=== PATIENT | female | born 1965 | race Caucasian/White ===

== ENCOUNTER 2019-12-10 09:16 | Outpatient (CLI) | payer BC, SELFPAY ==
--- NOTE | 2019-12-10 11:00 | NEURO_ITS ---
Patient Number: [id number] Impression: # Complains of paresthesia of hands. # No Carpal Tunnel Syndrome. # No ulnar neuropathy. # Normal needle/EMG exam. # Clinical correlation recommended. Nerve Conduction Studies Anti Sensory Summary Table Stim Site NR Peak (ms) P-T Amp (?V) Site1 Site2 Delta-P (ms) Dist (cm) Eduardo (m/s) Left Median Anti Sensory (2-3nd Digit) Wrist 2.8 47.4 Wrist 2-3nd Digit 2.8 14.0 50 Wrist 2.8 77.8 Wrist 2-3nd Digit 2.8 14.0 50 Right Median Anti Sensory (2-3nd Digit) Wrist 2.9 34.1 Wrist 2-3nd Digit 2.9 14.0 48 Wrist 2.8 66.1 Wrist 2-3nd Digit 2.9 14.0 48 Left Radial Anti Sensory (Base 1st Digit) Wrist 2.2 40.8 Wrist Base 1st Digit 2.2 0.0 Right Radial Anti Sensory (Base 1st Digit) Wrist 2.4 23.3 Wrist Base 1st Digit 2.4 0.0 Left Ulnar Anti Sensory (5th Digit) Wrist 2.5 65.9 Wrist 5th Digit 2.5 14.0 56 Right Ulnar Anti Sensory (5th Digit) Wrist 2.6 43.6 Wrist 5th Digit 2.6 14.0 54 Motor Summary Table Stim Site NR Onset (ms) O-P Amp (mV) Site1 Site2 Delta-0 (ms) Dist (cm) Eduardo (m/s) Left Median Motor (Abd Poll Brev) Wrist 2.4 7.8 Elbow Wrist 4.8 28.0 58 Elbow 7.2 5.8 Right Median Motor (Abd Poll Brev) Wrist 3.0 1.3 Elbow Wrist 4.5 27.0 60 Elbow 7.5 2.8 Left Ulnar Motor (Abd Dig Minimi) Wrist 2.3 9.2 A Elbow Wrist 4.7 28.0 60 A Elbow 7.0 8.0 Right Ulnar Motor (Abd Dig Minimi) Wrist 2.7 5.2 A Elbow Wrist 4.7 29.0 62 A Elbow 7.4 3.8 F Wave Studies NR F-Lat (ms) L-R F-Lat (ms) Left Median (Mrkrs) (Abd Poll Brev) 26.20 0.82 Right Median (Mrkrs) (Abd Poll Brev) 27.02 0.82 Left Ulnar (Mrkrs) (Abd Dig Min) 26.97 0.32 Right Ulnar (Mrkrs) (Abd Dig Min) 26.66 0.32 EMG Side Muscle Nerve Root Ins Act Fibs Amp Dur Recrt Comment Right 1stDorInt Ulnar C8-T1 Nml Nml Nml Nml Nml Right Ext Indicis Radial (Post Int) C7-8 Nml Nml Nml Nml Nml Right Ext Digitorum Radial (Post Int) C7-8 Nml Nml Nml Nml Nml Right BrachioRad Radial C5-6 Nml Nml Nml Nml Nml Right PronatorTeres Median C6-7 Nml Nml Nml Nml Nml Right Abd Poll Brev Median C8-T1 Nml Nml Nml Nml Nml Left 1stDorInt Ulnar C8-T1 Nml Nml Nml Nml Nml Left Ext Indicis Radial (Post Int) C7-8 Nml Nml Nml Nml Nml Left Ext Digitorum Radial (Post Int) C7-8 Nml Nml Nml Nml Nml Left BrachioRad Radial C5-6 Nml Nml Nml Nml Nml Left PronatorTeres Median C6-7 Nml Nml Nml Nml Nml Left Abd Poll Brev Median C8-T1 Nml Nml Nml Nml Nml MTDD
== END 2019-12-10 09:17 | disposition home or self-care (01) ==
PROVIDERS: PCP Internal Medicine Gastroenterology; Visit Provider Internal Medicine Gastroenterology
DX: R20.2 Paresthesia of skin (principal)
CPT/HCPCS: 95886; 95911

== ENCOUNTER 2023-09-18 16:33 | Emergency (ER) | payer OTHER, SELFPAY ==
[2023-09-18 17:00] VITALS: BP 143/114; PULSE 78; RESP 18; TEMP 36.6; O2SAT 100
--- NOTE | 2023-09-18 17:45 | ED.DENTAL ---
HPI - Dental/Oral General Chief complaint: Dental/Oral Stated complaint: teeth Time Seen by Provider: 09/18/23 17:04 History of Present Illness HPI Narrative: Patient is a 58-year-old female who presents ER with dental pain. Reports tooth 16. Ongoing for last 5 days. Worse with eating and drinking. No facial swelling. No fevers or chills or sweats. She reports she is supposed to follow-up with dentistry tomorrow. No pain control with [id number] pain medication. Related Data Allergies Allergy/AdvReac Type Severity Reaction Status Date / Time No Known Allergies Allergy Unverified 05/08/18 14:35 Review of Systems Constitutional: Constitutional: Reports no additional constitutional complaints ENT: Reports system reviewed and no additional complaints, except as documented Cardiovascular: Cardiovascular: Reports no additional cardiovascular complaints Exam Narrative: GENERAL: Well-appearing, well-nourished, and in no acute distress. HEAD: Normocephalic, atraumatic. ENT: Mucous membranes moist. Tender tooth 16. No facial swelling. CHEST: Clear to auscultation. No respiratory distress. HEART: Regular rate and rhythm. Normal peripheral pulses. EXTREMITIES: Normal range of motion. No edema. NEURO: Alert and oriented x3. PSYCH: Normal mood and affect. Course Course Emergency Course: Discussed treatment plan. Discharge with antibiotics and pain medication Vital Signs Vital signs: Vital Signs Temperature 97.8 F 09/18/23 17:00 Pulse Rate 78 09/18/23 17:00 Respiratory Rate 18 09/18/23 17:00 Blood Pressure 143/114 H 09/18/23 17:00 Pulse Oximetry 100 09/18/23 17:00 Oxygen Delivery Room Air 09/18/23 17:00 Temperature 98.0 F 09/18/23 18:05 Pulse Rate 92 09/18/23 18:05 Respiratory Rate 16 09/18/23 18:05 Blood Pressure 142/80 H 09/18/23 18:05 Pulse Oximetry 100 09/18/23 18:05 Oxygen Delivery Room Air 09/18/23 17:00 Discharge Plan Discharge Clinical Impression: Toothache Patient Disposition: Home, Self-Care Condition: Stable Instructions: Antibiotic Form, Toothache (ED) Additional Instructions: Return ER if you have worsening pain, you can not keep down food/water/medication, you have fever over 100.4? F. Prescriptions: New hydrocodone-acetaminophen 5-325 mg tablet 1 tablet PO Q6H PRN (Reason: pain) Qty: 10 0RF amoxicillin-pot clavulanate 875-125 mg tablet 1 tablet PO Q12H Qty: 20 0RF Follow-up/Referrals: Dental Referral Line [Outside] - 1 Week Misael,Asiya Kaminski MD [Primary Care Provider] - Stand Alone Forms: Work/School Release IP
[2023-09-18 18:05] VITALS: BP 142/80; PULSE 92; RESP 16; TEMP 36.7; O2SAT 100
== END 2023-09-18 18:06 | disposition home or self-care (01) ==
PROVIDERS: Emergency Provider Emergency Medicine; PCP Internal Medicine Gastroenterology
DX: K08.89 Other specified disorders of teeth and supporting structures (principal)
CPT/HCPCS: 99283

== ENCOUNTER 2024-04-26 16:38 | Emergency (ER) | payer OTHER, SELFPAY ==
[2024-04-26 16:44] VITALS: BP 132/69; PULSE 82; RESP 14; TEMP 36.4; O2SAT 100
--- NOTE | 2024-04-26 17:27 | ED_ITS ---
HPI - Dental/Oral General Chief complaint: Dental/Oral Stated complaint: pain on roof of mouth Time Seen by Provider: 04/26/24 17:14 History of Present Illness HPI Narrative: Patient is a 58-year-old female who presents ER with pain to the hard palate on the right side of her mouth. Ongoing for last week. She has a painful tooth on the left side last month so she has been chewing fairly on the right side. Unsure if she has injury there were she has infection. She does have a loose to at #3. Related Data Allergies Allergy/AdvReac Type Severity Reaction Status Date / Time No Known Allergies Allergy Unverified 05/08/18 14:35 Review of Systems Constitutional: Constitutional: Reports no additional constitutional complaints ENT: Reports system reviewed and no additional complaints, except as documented Genitourinary: Genitourinary: Reports no additional female genitourinary complaints PMFSH Past Medical History Medical History (Updated 04/26/24 @ 17:36 by Rito Mohamud MD) Hypertension Surgical History Surgical History (Updated 04/26/24 @ 17:36 by Rito Mohamud MD) H/O tubal ligation Exam Narrative: GENERAL: Well-appearing, well-nourished, and in no acute distress. HEAD: Normocephalic, atraumatic. ENT: Mucous membranes moist. small ulceration of hard palate on the right side with slight edema. No flexion abscess. Loose tooth 3. NEURO: Alert and oriented x3. PSYCH: Normal mood and affect. Course Course Emergency Course: Patient resting comfortably. Discussed diagnosis and treatment plan. Patient verbalized understanding. Vital Signs Vital signs: Vital Signs Temperature 97.6 F 04/26/24 16:44 Pulse Rate 82 04/26/24 16:44 Respiratory Rate 14 04/26/24 16:44 Blood Pressure 132/69 04/26/24 16:44 Pulse Oximetry 100 04/26/24 16:44 Oxygen Delivery Room Air 04/26/24 16:44 Temperature 97.6 F 04/26/24 16:44 Pulse Rate 82 04/26/24 16:44 Respiratory Rate 14 04/26/24 16:44 Blood Pressure 132/69 04/26/24 16:44 Pulse Oximetry 100 04/26/24 16:44 Oxygen Delivery Room Air 04/26/24 16:44 Discharge Plan Discharge Clinical Impression: Hard palate ulcer Patient Disposition: Home, Self-Care Condition: Stable Additional Instructions: return to the ER if you cannot keep down food / water, you have swelling of her face, have additional concerns. Use warm salt water rinses to help with healing of your ulcer. Patient Language: Japanese Prescriptions: No Action hydrocodone-acetaminophen 5-325 mg tablet 1 tablet PO Q6H PRN (Reason: pain) Qty: 10 0RF amoxicillin-pot clavulanate 875-125 mg tablet 1 tablet PO Q12H Qty: 20 0RF Follow-up/Referrals: Misael,Asiya Kaminski MD [Primary Care Provider] - 1 Week
== END 2024-04-26 17:49 | disposition home or self-care (01) ==
PROVIDERS: Emergency Provider Emergency Medicine; PCP Internal Medicine Gastroenterology
DX: K12.1 Other forms of stomatitis (principal); I10 Essential (primary) hypertension
CPT/HCPCS: 99281

== ENCOUNTER 2024-06-30 03:23 | Emergency (ER) | payer SELFPAY ==
[2024-06-30 03:25] VITALS: BP 122/82; PULSE 79; RESP 20; TEMP 36.7; O2SAT 95
--- OUTSIDE RECORDS SUMMARY | 2024-06-30 03:26 | XMS_ITS | Data Portability ---
Author Organization [place] - [facility], Main Office Address [address] [place] [address] Assessment No assessment recorded. Plan of Treatment Reminders Order Date Submit Date Provider Last Modified By Organization Details Last Modified Time Details Appointments None recorded. Lab None recorded. Referral None recorded. Procedures colonoscopy screening (PROC) 2022 [facility] (Pre-Screen), [address] [place], [address], 12:12:26 Surgeries None recorded. Imaging None recorded. Medication Orders Golytely 236 gram-22.74 gram-6.74 gram-5.86 gram oral solution 2022 [id number] [address], [place], [id number], 14:55:56 Patient TargetsNo targets recorded. Patient Instructions Encounter Date Encounter Id Patient Instructions Last Modified By Organization Details Last Modified Time 02/06/2023 [id number] GOLYTELY Not available 08/2022 14:44:42 PT NEEDS A SCREENING COLON . R/O POLYP . RECOMMEND A COLONOSOPY . Risks benefits and complications were explained to the pt. ( BLEEDING PERFORATION , INFECTION , ). PT VERBALIZES UNDERSTANDING AND IS WILLING TO PROCEDE . [email or web address] Not available 02/06/2023 14:44:49 Reason for Referral None Reported. Results Created Date Observation Date Name Description Value Unit Range Abnormal Flag Note LastModifiedBy Organization Detail LastModifiedTime 02/21/2002/20/2023 colon oscop y scree leslee (PROC ) No observ ation record ed. [facility] (Pre-Screen) [address] [place], [address], 02/20/2023 12:12:26 Result Notes None recorded. 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 Procedures Surgical History Date Name Laterality Status Provider Name and Address Organization Details Recorded Time Hemorrhoidectomy completed LUIS Llanos [facility] 12/25/2022 16:37:09 Tubal Ligation completed LUIS Llanos [facility] 12/25/2022 16:37:16 Imaging Results Imaging Date Name Status LastModified by Organiz ation Details LastModified Time 02/20/2023 colonoscopy screening (PROC) completed [address] [facility] (Pre-Screen) [address] [place], [address], 02/20/2023 12:12:26 Procedure Notes None recorded. Medical Equipment None Reported. Allergies No known drug allergies Medications Name Sig Start Date Stop Date Status Note LastModified by Organization Details LastModified Time ammonium lactate 12 % lotion apply to feet daily as needed 12/25 completed Not Available Not Available Not Available lisinopril 20 mg-hydrochl orothiazide 12.5 mg tablet 12/25 completed Not Available Not Available Not Available azithromyci n 250 mg tablet ZPK 04/06 completed Not Available Not Available Not Available ranitidine 300 mg tablet TK 1 T PO BID PRN 12/25 completed Not Available Not Available Not Available prednisone 20 mg tablet TK 1 T PO BID 12/25 completed Not Available Not Available Not Available sulfamethox azole 800 mg-trimetho prim 160 mg tablet TAKE 1 TABLET BY MOUTH TWICE DAILY FOR 10 DAYS active Not Available Not Available No t Available peg-electro lyte solution 420 gram oral solution MIX AND DRINK DIRECTED active Not Available Not Available No t Available benzonatate 100 mg capsule TK ONE C PO TID FOR 14 DAYS 12/25 completed Not Available Not Available Not Available lisinopril 10 mg tablet TK 1 T PO QD 12/25 completed Not Available Not Available Not Available omeprazole 20 mg capsule,del ayed release TK 1 C PO ONCE D B A MEAL 12/25 completed Not Available Not Available Not Available mupirocin 2 % topical ointment APPLY TOPICALLY TO THE AFFECTED AREA TWICE DAILY FOR 1 WEEK active Not Available Not Available No t Available Low-Ogestre l (28) 0.3 mg-30 mcg tablet TK 1 T PO QD 12/25 completed Not Available Not Available Not Available albuterol sulfate HFA 90 mcg/actuati on aerosol inhaler INL 2 PFS PO Q 4 H active Not Available Not Available No t Available ketoconazol e 2 % topical cream apply in between toes daily as needed 12/25 completed Not Available Not Available Not Available fluticasone propionate 50 mcg/actuati on nasal spray,suspe nsion SHAKE LQ AND U 2 SPRAYS NASALLY QD 12/25 completed Not Available Not Available Not Available Golytely 236 gram-22.74 gram-6.74 gram-5.86 gram oral solution DIRECTED 2022 active Not Available Not Available Not Avai lable Vitals Date Recorded Body height Body mass index (BMI) Body weight Heart rate Oxygen saturation Oxygen saturation in Arterial blood by Pulse oximetry Systolic blood pressure Diastolic blood pressure Provider Name and Address Organization Details Last Updated DateTime 3 170.18 cm 19.1 kg/m2 28711.2 7 g 102 /min 97 % 97 % 134 mm[Hg] 82 mm[Hg] LUIS Llanos [place] - [facility] 3 14:46:45 Social History Question Answer Notes LastModified by Organizat ion Details LastModified Time Tobacco Smoking Status Current Every Day Smoker Hodan Thapasley, ARANZAA null, [place] - [facility] 12/25/2022 16:36:39 What Is Your Level Of Alcohol Consumption? None Information not available 12/25/2022 How Much Tobacco Do You Smoke? 0.5 PPD Information not available 12/25/2022 Sex: Unknown Functional Status None recorded. Mental Status None recorded. Family History Relationship Description Onset Age of this Age Resolved Age Notes LastModified by Organization Details LastModified Time Mother Cerebrovascu lar accident Not available 16:35:08 Mother Hypertensive disorder Not available 2022 16:35:16 Mother Epilepsy Not available 12/25/2022 16:35:24 Father Heart disease Not available 2022 16:35:32 Father Hypertensive disorder Not available 2022 16:35:40 Father Hypercholest erolemia Not available 2022 16:35:52 Father Myocardial infarction Not available 12/25 16:36:08 Father Migraine Not available 12/25/2022 16:36:15 Medical History Condition Response CANCER: SPECIFY Y HYPERTENSION Y Gynecological HistoryNo gynecological history recorded. Obstetrics History GPAL:G 0 P 0 0 0 0 Past Encounters Encounter ID Performer Location Encounter Start Date Encounter Closed Date Diagnosis/Indication Diagnosis SNOMED-CT Code Diagnosis ICD10 Code Diagnosis Note [id number] Bell Cornell MD [facility] [address] [facility] [address] [place] [address] 02/06/2023 14:43:07 02/06/2023 15:02:27 Screening for malignant neoplasm of colon 860265103 Z12.11 Health Concerns Section Related Observation LastModified by Organization Detai ls LastModified Time None Recorded Concern Status LastModified by Organization Details LastModified Time None Recorded Advance Directives Directive None Recorded Payers Encounter Date Sequence Insurance Name Policy Number Policy Mock Covered Member ID Mock Member ID Guarantor Name 02/06/2023 1 [employer] [id number] Magda Quiles [id number] Magda Quiles Notes Date Note Type Note Provider Name and Address Organization Details Recorded Time 02/06/2023 text/html PT WAS SEEN IN THE OFFICE TODAY FOR COLON SCREENING . PT DENIES ABD PAIN /N/V/D/BLEEDING /WT LOSS. PT HAS LOST 77 LBS IN THE PAST YEAR . PT SISTER HAD 9 PRE CANCEROUS POLYPS REMOVED . Bell Cornell MD [address] [place] [address], [place], [address], [facility] [employer] 02/06/2023 14:56:09 OBGyn Episode No OBEpisode recorded.
--- OUTSIDE RECORDS SUMMARY | 2024-06-30 03:26 | XMS_ITS | Clinical Summary ---
Author Organization [facility] Address [address] [place] [address] Care Team Providers Care Gyroscopic Instrument Tester Name Role Phone Asiya Douglas MD Primary Care Provider + [phone] [facility],non-owned Affiliates and Associated Physician Practices is amultiple site organization consisting of ambulatory clinics and hospital sitesin [place], [place], [place] and [place]. This disclosure is being madepursuant to the Care Everywhere program and may not contain all information available regarding this patient. Last updated 18.[facility] Allergies No known active allergies Medications * Be aware that medications may not be up to date on this document. Alwaysverify current medications with the patient. Medication Sig Dispensed Refills Start Date End Date Status lisinopril-hydroCHLORO thiazide (PRINZIDE; ZESTORETIC) 20-12.5 MG tablet Take 1 tablet by mouth 2 times daily Active omeprazole (PRILOSEC) 20 MG capsule Take 20 mg by mouth once daily 04/13/2019 Active Naproxen Sodium (ALEVE PO) Take 600 mg by mouth 2 times daily Active fluticasone propionate (FLONASE) 50 MCG/ACT nasal spray [place] 2 sprays into each nostril every 6 hours as needed Active Immunizations Name Administration Dates Next Due HEP A/HEP B 12/21/2008 Family History Medical History Relation Name Comments CAD (Coronary Artery Disease) Father Cancer - Other Maternal Grandfather Cancer - Other Maternal Grandmother Arthritis - Rheumatoid Mother CVA Mother Seizures Mother Diabetes - Type 2 Other Cancer - Breast Sister 1 Cancer - Ovarian Sister 2 Relation Name Status Comments Father Maternal Grandfather Maternal Grandmother Mother Other Sister 1 Sister 2 Social History Tobacco Use Types Packs/Day Years Used Date Smoking Tobacco: Every Day Cigarettes Smokeless Tobacco: Never Alcohol Use Standard Drinks/Week Comments Not Currently 0 (1 standard drink = 0.6 oz pur e alcohol) Sex and Gender Information Value Date Recorded Sex Assigned at Not on file Gender Identity Not on file Sexual Orientation Not on file Last Filed Vital Signs Vital Sign Reading Time Taken Comments Blood Pressure 116/77 08/25/2020 10:46 AM CDT Pulse 50 08/25/2020 10:46 AM CDT Temperature 36.3 C (97.4 F) 08/25/2020 10:46 AM CDT Respiratory Rate 18 08/25/2020 10:46 AM CDT Oxygen Saturation 98% 08/25/2020 10:46 AM CDT Inhaled Oxygen Concentration - - Weight 76.9 kg (169 lb 9.6 oz) 08/25/2020 10:46 AM CDT Height 167.6 cm (5' 6 ) 08/25/2020 10:46 AM CDT Body Mass Index 27.37 08/25/2020 10:46 AM CDT Plan of Treatment Health Maintenance Due Date Last Done Comments COLOGUARD (AGES 45-75) - COL ON CA SCREENING 1966 COLON MONITORING 1966 COLONOSCOPY - COLON CA SCREENING 1966 CT COLONOGRAPHY - COLON CA SCREENING 1966 Colorectal Cancer Screening 1966 FIT - COLON CA SCREENING 1966 FLEX SIG - COLON CA SCREENING 1966 LIPID TESTING 1966 MAMMOGRAM 1966 PAP SMEAR 1966 HIV SCREENING 1981 HEPATITIS C SCREENING 09/09/1984 DTAP/TDAP/TD VACCINES (1 - Tdap) 1985 PNEUMOCOCCAL VACCINE (1 of 2 - PCV) 1985 HEPATITIS B VACCINE (2 of 3 - Hep B Twinrix 3-dose series) 01/18/2009 12/21/2008 PNEUMOCOCCAL VACCINE 50+ (1 of 1 - PCV) 2016 ZOSTER VACCINE (1 of 2) 2016 SCREENING FOR DIABETES 08/25/2020 COVID-19 VACCINE (1 - 2023-2 5 season) 2024 INFLUENZA VACCINE (#1) 2024 DEPRESSION SCREENING 05/06/2024 HIB VACCINE Aged Out No longer eligi ble based on patient's age to complete this topic HPV VACCINE Aged Out No longer eligi ble based on patient's age to complete this topic MENINGOCOCCAL (Group B) VACCINE Aged Out No longer eligible based on patient's age to complete this topic MENINGOCOCCAL VACCINE Aged Out No debby saroj eligible based on patient's age to complete this topic Care Teams Gyroscopic Instrument Tester Relationship Specialty [place] [address] [place] [id number] PCP - General 05/04/19
--- OUTSIDE RECORDS SUMMARY | 2024-06-30 03:26 | XMS_ITS | Encounter Summary ---
Author Organization [facility] Address [address] [place] [address] Care Team Providers Care Expansion Envelope Maker Hand Name Role Phone Unavailable Primary Care Provider Unavailabl e Encounter Details Date Type Department Care Team (Late st Contact Info) Description 10/11/2018 Abstract SFL CONVERSION [address] [place] [address] , Generic Conversion, Social History Tobacco Use Types Packs/Day Years Used Date Smoking Tobacco: Never Assessed Comments Unknown Sex and Gender Information Value Date Recorded Sex Assigned at Not on file Legal Sex Female 5:48 PM [employer] Gender Identity Not on file Sexual Orientation Not on file documented as of this encounter Plan of Treatment Not on file documented as of this encounter Visit Diagnoses Not on filedocumented in this encounter
--- OUTSIDE RECORDS SUMMARY | 2024-06-30 03:26 | XMS_ITS | Data Portability ---
Author Organization [facility] ROSSJose Luis 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 Race self-identified as White.Her highest level of education is high school diploma/GED. Employment Status: Fulltime Relationship status: has boyfriend PHQ9: 4, neg GAD7: 4, neg ACES: 0 Resilience: 45, moderate SDOH: not completed, address at next appointment Trauma Screen: Partnering Providers: Asiya Douglas Date: Follow-up in 1-2 months [email or web address] Not available 03/03/2024 16:41:50 Plan of Treatment Reminders Order Date Submit Date Provider Last Modified By Organization Details Last Modified Time Details Appointments None recorded . Lab urinalys is, dipstick 2023 024 [email or web address] In-Office Order, Internal Use Only DO Not Attach Compendium DO Not Attach Compendium, Do Not Delete/merge, [id number] 11:04:07 HbA1c (hemoglo bin A1c), blood 2023 024 SIMIN [facility], [address] [address], [place], [address], 09:14:59 CMP, serum or plasma 10/2023 [facility], [address], [address], [place], [address], 09:14:56 CBC w/ auto diff 2023 [facility], [address], [address], [place], [address], 09:15:01 TSH, ultra-se nsitive, serum 2023 [facility], [address], [address], [place], [address], 09:14:57 HIV 1 + 2, meaningf ul use set 2023 [facility], [address] [place] [address] [address], [address], [place], [address], 09:15:07 RPR (rapid plasma reagin), serum 2023 [facility], [address] [place] [address] [address], [address], [place], [address], 09:15:05 HBsAg (hepatit is B surface Ag), EIA, serum 2023 [facility], [address] [place] [address] [address], [address], [place], [address], 09:15:03 Hepatiti s C IgG Ab, qual, serum 2023 [facility], [address] [place] [address] [address], [address], [place], [address], 09:14:54 vaginal pathogen s panel, MAHAMED+prob e, vaginal fluid 2023 [email or web address] [facility], [address], [address], [place], [address], 4 11:28:06 pap, IG + reflex HPV 2023 024 [facility], [address], [address], [place], [address], 4 03:09:24 culture, wound 2022 023 [facility], [address], [address], [place], [address], 3 06:20:47 TSH, ultra-se nsitive, serum 2022 023 [facility], [address], [address], [place], [address], 3 06:17:37 CBC 2022 023 [facility], [address], [address], [place], [address], 3 08:33:41 vitamin B12 + folate, serum or blood 2022 023 [facility], [address], [address], [place], [address], 3 06:17:37 thiamine , QN, blood 2022 023 [facility], [address], [address], [place], [address], 3 19:08:37 CMP, serum or plasma 2022 023 [facility], [address], [address], [place], [address], 3 08:33:[address] referral 2022 024 crow Cornell MD, 2043 [facility], [address], [place], [address], 4 11:44:01 Procedures None recorded . Surgeries None recorded . Imaging MAMMO, screenin g, digital, bilatera l 2023 024 [facility] ([facility]), [address] [place], [address], 5 04:14:53 MAMMO, diagnost ic, unilater al - lump on right breast at 9:00 position near nipple 2023 024 [facility] ([facility]), [address] [place], [address], 4 15:23:50 US, breast, unilater al - lump on right breast at 9:00 position near nipple 2023 024 [facility] ([facility]), [address] [place], [address], 5 04:14:53 LDCT, chest, for lung cancer screenin g 2022 023 [facility] ([facility]), [address] [place], [address], 3 08:34:48 US, duplex, carotid artery - Left carotid bruit 2022 023 [facility] ([facility]), [address] [place], [address], 3 15:40:07 MAMMO, screenin g, bilatera l 2022 023 [facility] ([facility]), [address] [place], [address], 3 12:49:39 Medication Orders bupropio n HCl SR 150 mg tablet,1 2 hr sustaine d-releas e 2023 [id number], [address], [place], [id number], 4 11:18:25 Replens vaginal gel 2023 [facility] #[id number], [address], [place], [id number], 11:14:48 Personal Lubrican t vaginal solution 2023 [facility] #[id number], [address], [place], [id number], 11:14:40 mupiroci n 2 % topical ointment 2022 024 [facility] #[id number], [address], [place], [id number], 4 09:53:40 Bactrim DS 800 mg-160 mg tablet 2022 023 [id number], [address], [place], [id number], 09:53:31 albutero l sulfate HFA 90 mcg/actu ation aerosol inhaler 2022 023 [facility][id number], [address], [place], [id number], 09:53:16 Patient TargetsNo targets recorded. Patient Instructions Encounter Date Encounter Id Patient Instructions Last Modified By Organization Details Last Modified Time 12/25/2022 [id number] deciding about using medicines to quit smoking [email or web address] Not available 12/25/2022 11:17:09 Quitting Tobacco : Care Instructions Not available 12/25/2022 11:17:09 dizziness: care instructions [email or web address] Not available 12/25/2022 11:17:10 abnormal weight loss: care instructions [email or web address] Not available 12/25/2022 11:17:09 learning about breast cancer screening [email or web address] Not available 12/25/2022 11:17:10 shortness of breath: care instructions [email or web address] Not available 12/25/2022 11:17:09 04/01/2023 [id number] abnormal weight loss: care instructions [email or web address] Not available 04/01/2023 12:29:02 deciding about using medicines to quit smoking [email or web address] Not available 04/01/2023 12:29:02 Quitting Tobacco : Care Instructions [email or web address] Not available 04/01/2023 12:29:02 palpitations: care instructions [email or web address] Not available 04/01/2023 12:29:02 02/20/2024 [id number] On the date of this encounter, I saw and examined the patient, personally verifying the dominguez and critical findings in the resident s note. I reviewed and agree with the resident/fellow s findings and plan. ~MD [email or web address] Not available 03/01/2024 19:51:50 Reason for Referral Client Relationship Consultant Referral for Family history of polyp of colon First degree family history colon polyps Referring Physician: Asiya Douglas, Internal Medicine, Encounter Date: 12/25/2022 Results Created Date Observation Date Name Description Value Unit Range Abnormal Flag Note LastModifiedBy Organization Detail LastModifiedTime 12/26/1912/26/2022 TSH RFX ON ABNOR MAL TO FREE T4 TSH 0.297 uIU/m L 0.450- 4.500 below low normal Not Available [facility] ([facility]) [address] [place], [address], 12/26/2022 06:17:37 12/26/19 23 12/26/2022 VITAM IN B12 AND FOLAT E vitamin B12 302 pg/mL 232-12 45 Not Available [facility] ([facility]) [address] [facility], [place], [address], 12/26/2022 06:17:37 12/26/1912/26/2022 VITAM IN B12 AND FOLAT E folate (folic acid), serum 15.3 NG/mL >3.0 A serum folat e corry ntrat ion of less than 3.1 ng/mL is consi dered to repre sent clini lizy defic iency . Not Available [facility] ([facility]) [address] [place], [address], 12/26/2022 06:17:37 12/26/1912/26/2022 COMP. METAB OLIC PANEL (14) glucose 77 mg/dL 70-99 Not Available [facility] ([facility]) [address] [place], [address], 12/26/2022 08:33:40 12/26/1912/26/2022 COMP. METAB OLIC PANEL (14) BUN 23 mg/dL 6-24 Not Available [facility] ([facility]) [address] [place], [address], 12/26/2022 08:33:40 12/26/1912/26/2022 COMP. METAB OLIC PANEL (14) creatinine 0.69 mg/dL 0.57-1 .00 Not Available [facility] ([facility]) [address] [place], [address], 12/26/2022 08:33:40 12/26/19 23 12/26/2022 COMP. METAB OLIC PANEL (14) eGFR 102 mL/mi n/1.7 3 >59 Not Available [facility] ([facility]) [address] [place], [address], 12/26/2022 08:33:40 12/26/1912/26/2022 COMP. METAB OLIC PANEL (14) BUN/creatini ne ratio 33 9-23 above high normal Not Available [facility] ([facility]) [address] [place], [address], 12/26/2022 08:33:40 12/26/19 23 12/26/2022 COMP. METAB OLIC PANEL (14) sodium 141 mmol/ L 134-14 4 Not Available [facility] ([facility]) [address] [facility] [place], [address], 12/26/2022 08:33:40 12/26/19 23 12/26/2022 COMP. METAB OLIC PANEL (14) potassium - mmol/ L Test not perfo rmed. Speci men is hemol yzed. Unabl e to obtai n valid resul ts. Not Available [facility] ([facility]) [address] [place], [address], 12/26/2022 08:33:40 12/26/19 23 12/26/2022 COMP. METAB OLIC PANEL (14) chloride 105 mmol/ L 96-106 Not Available [facility] ([facility]) [address] [facility], [place], [address], 12/26/2022 08:33:40 12/26/19 23 12/26/2022 COMP. METAB OLIC PANEL (14) carbon dioxide, total 18 mmol/ L 20-29 below low normal Not Available [facility] ([facility]) [address] [place], [address], 12/26/2022 08:33:40 12/26/19 23 12/26/2022 COMP. METAB OLIC PANEL (14) calcium 9.9 mg/dL 8.7-10 .2 Not Available [facility] ([facility]) [address] [place], [address], 12/26/2022 08:33:40 12/26/19 23 12/26/2022 COMP. METAB OLIC PANEL (14) protein, total 7.2 g/dL 6.0-8. 5 Not Available [facility] ([facility]) [address] [place], [address], 12/26/2022 08:33:40 12/26/19 23 12/26/2022 COMP. METAB OLIC PANEL (14) albumin 4.6 g/dL 3.8-4. 9 Not Available [facility] ([facility]) [address], [place], [address], 12/26/2022 08:33:40 12/26/19 23 12/26/2022 COMP. METAB OLIC PANEL (14) globulin, total 2.6 g/dL 1.5-4. 5 Not Available [facility] ([facility]) [address], [place], [address], 12/26/2022 08:33:40 12/26/19 23 12/26/2022 COMP. METAB OLIC PANEL (14) A/G ratio 1.8 1.2-2. 2 Not Available [facility] ([facility]) [address], [place], [address], 12/26/2022 08:33:40 12/26/19 23 12/26/2022 COMP. METAB OLIC PANEL (14) bilirubin, total 0.5 mg/dL 0.0-1. 2 Not Available [facility] ([facility]) [address] [facility], [place], [address], 12/26/2022 08:33:40 12/26/19 23 12/26/2022 COMP. METAB OLIC PANEL (14) alkaline phosphatase 90 IU/L 44-121 Not Available [facility] ([facility]) [address], [place], [address], 12/26/2022 08:33:40 12/26/19 23 12/26/2022 COMP. METAB OLIC PANEL (14) AST (SGOT) 32 IU/L 0-40 Not Available [facility] ([facility]) [address] [facility], [place], [address], 12/26/2022 08:33:40 12/26/1912/26/2022 COMP. METAB OLIC PANEL (14) ALT (SGPT) 15 IU/L 0-32 Not Available [facility] ([facility]) [address] [facility], [place], [address], 12/26/2022 08:33:40 12/26/1912/26/2022 CBC, PLATE LET, NO DIFFE RENTI AL WBC 6.0 x10e3 /uL 3.4-10 .8 Not Available [facility] ([facility]) [address] [facility], [place], [address], 12/26/2022 08:33:41 12/26/1912/26/2022 CBC, PLATE LET, NO DIFFE RENTI AL RBC 4.44 x10e6 /uL 3.77-5 .28 Not Available [facility] ([facility]) [address] [facility], [place], [address], 12/26/2022 08:33:41 12/26/1912/26/2022 CBC, PLATE LET, NO DIFFE RENTI AL hemoglobin 14.4 g/dL 11.1-1 5.9 Not Available [facility] ([facility]) [address] [facility], [place], [address], 12/26/2022 08:33:41 12/26/1912/26/2022 CBC, PLATE LET, NO DIFFE RENTI AL hematocrit 42.6 % 34.0-4 6.6 Not Available [facility] ([facility]) [address] [facility], [place], [address], 12/26/2022 08:33:41 12/26/1912/26/2022 CBC, PLATE LET, NO DIFFE RENTI AL MCV 96 fL 79-97 Not Available [facility] ([facility]) [address] [facility], [place], [address], 12/26/2022 08:33:41 12/26/1912/26/2022 CBC, PLATE LET, NO DIFFE RENTI AL MCH 32.4 pg 26.6-3 3.0 Not Available [facility] ([facility]) [address] [facility], [place], [address], 12/26/2022 08:33:41 12/26/1912/26/2022 CBC, PLATE LET, NO DIFFE RENTI AL MCHC 33.8 g/dL 31.5-3 5.7 Not Available [facility] ([facility]) [address] [facility], [place], [address], 12/26/2022 08:33:41 12/26/1912/26/2022 CBC, PLATE LET, NO DIFFE RENTI AL RDW 11.9 % 11.7-1 5.4 Not Available [facility] ([facility]) [address] [facility], [place], [address], 12/26/2022 08:33:41 12/26/1912/26/2022 CBC, PLATE LET, NO DIFFE RENTI AL platelets 250 x10e3 /uL 150-45 0 Not Available [facility] ([facility]) [address] [place], [address], 12/26/2022 08:33:41 12/26/1912/28/2022 VITAM IN B1 (THIA MINE) , BLOOD vit. B1, whole blood 121.9 nmol/ L 66.5-2 00.0 Not Available [facility] ([facility]) [address] [place], [address], 12/28/2022 19:08:37 12/26/1912/26/2022 T4F T4,free (direct) 1.30 NG/dL 0.82-1 .77 Not Available [facility] ([facility]) [address] [place], [address], 12/26/2022 06:17:38 02/20/2002/26/2023 ANAER OBIC AND AEROB IC CULTU RE aerobic culture Final report Not Available [facility] ([facility]) [address] [facility], [place], [address], 03/01/2023 06:20:47 02/20/2002/26/2023 ANAER OBIC AND AEROB IC CULTU RE result 1 Mixed skin jb Not Available [facility] ([facility]) [address] [facility], [place], [address], 03/01/2023 06:20:47 02/20/2002/28/2023 ANAER OBIC AND AEROB IC CULTU RE anaerobic culture Final report Not Available [facility] ([facility]) [address] [facility], [place], [address], 03/01/2023 06:20:47 02/20/2002/28/2023 ANAER OBIC AND AEROB IC CULTU RE result 1 Commen t No anaer obic growt h in 72 hours . Not Available [facility] ([facility]) [address] [facility], [place], [address], 03/01/2023 06:20:47 02/20/2002/21/2024 INTER PRETA TION: interpretati on: Commen t Not infec coty with HCV unles s early or acute infec tion is suspe cted (whic h may be delay ed in an immun ocomp romis ed indiv idual ), or other evide nce exist s to indic ate HCV infec tion. Not Available [facility] ([facility]) [address] [facility], [place], [address], 02/21/2024 09:14:52 02/20/2002/21/2024 HCV ANTIB CECELIA RFX TO QUANT PCR HCV Ab NON REACTI VE nonrea ctive Not Available [facility] ([facility]) [address] [facility], [place], [address], 02/21/2024 09:14:53 02/20/20 24 02/21/2024 COMP. METAB OLIC PANEL (14) glucose 84 mg/dL 70-99 Not Available [facility] ([facility]) [address] [place], [address], 02/21/2024 09:14:55 02/20/20 24 02/21/2024 COMP. METAB OLIC PANEL (14) BUN 22 mg/dL 6-24 Not Available [facility] ([facility]) [address] [place], [address], 02/21/2024 09:14:55 02/20/2002/21/2024 COMP. METAB OLIC PANEL (14) creatinine 0.83 mg/dL 0.57-1 .00 Not Available [facility] ([facility]) [address] [place], [address], 02/21/2024 09:14:55 02/20/2002/21/2024 COMP. METAB OLIC PANEL (14) eGFR 82 mL/mi n/1.7 3 >59 Not Available [facility] ([facility]) [address] [place], [address], 02/21/2024 09:14:55 02/20/20 24 02/21/2024 COMP. METAB OLIC PANEL (14) BUN/creatini ne ratio 27 9-23 above high normal Not Available [facility] ([facility]) [address] [place], [address], 02/21/2024 09:14:55 02/20/20 24 02/21/2024 COMP. METAB OLIC PANEL (14) sodium 144 mmol/ L 134-14 4 Not Available [facility] ([facility]) [address] [place], [address], 02/21/2024 09:14:55 02/20/20 24 02/21/2024 COMP. METAB OLIC PANEL (14) potassium 5.0 mmol/ L 3.5-5. 2 Not Available [facility] ([facility]) [address] [place], [address], 02/21/2024 09:14:55 02/20/20 24 02/21/2024 COMP. METAB OLIC PANEL (14) chloride 107 mmol/ L 96-106 above high normal Not Available [facility] ([facility]) [address] [place], [address], 02/21/2024 09:14:55 02/20/20 24 02/21/2024 COMP. METAB OLIC PANEL (14) carbon dioxide, total 24 mmol/ L 20-29 Not Available [facility] ([facility]) [address] [place], [address], 02/21/2024 09:14:55 02/20/20 24 02/21/2024 COMP. METAB OLIC PANEL (14) calcium 9.7 mg/dL 8.7-10 .2 Not Available [facility] ([facility]) [address] [place], [address], 02/21/2024 09:14:55 02/20/2002/21/2024 COMP. METAB OLIC PANEL (14) protein, total 6.9 g/dL 6.0-8. 5 Not Available [facility] ([facility]) [address] [facility] [place], [address], 02/21/2024 09:14:55 02/20/20 24 02/21/2024 COMP. METAB OLIC PANEL (14) albumin 4.3 g/dL 3.8-4. 9 Not Available [facility] ([facility]) [address] [facility] [place], [address], 02/21/2024 09:14:55 02/20/20 24 02/21/2024 COMP. METAB OLIC PANEL (14) globulin, total 2.6 g/dL 1.5-4. 5 Not Available [facility] ([facility]) [address] [place], [address], 02/21/2024 09:14:55 02/20/2002/21/2024 COMP. METAB OLIC PANEL (14) bilirubin, total 0.4 mg/dL 0.0-1. 2 Not Available [facility] ([facility]) [address] [place], [address], 02/21/2024 09:14:55 02/20/2002/21/2024 COMP. METAB OLIC PANEL (14) alkaline phosphatase 110 IU/L 44-121 Not Available [facility] ([facility]) [address] [place], [address], 02/21/2024 09:14:55 02/20/2002/21/2024 COMP. METAB OLIC PANEL (14) AST (SGOT) 19 IU/L 0-40 Not Available [facility] ([facility]) [address] [place], [address], 02/21/2024 09:14:55 02/20/2002/21/2024 COMP. METAB OLIC PANEL (14) ALT (SGPT) 16 IU/L 0-32 Not Available [facility] ([facility]) [address] [place], [address], 02/21/2024 09:14:55 02/20/2002/21/2024 TSH RFX ON ABNOR MAL TO FREE T4 TSH 0.280 uIU/m L 0.450- 4.500 below low normal Not Available [facility] ([facility]) [address] [place], [address], 02/21/2024 09:14:57 02/20/2002/21/2024 HEMOG LOBIN A1C hemoglobin A1C 5.5 % 4.8-5. 6 Predi abete s: 5.7 - 6.4 Diabe holly: >6.4 Glyce mirza contr ol for adult s with diabe holly: <7.0 Not Available [facility] ([facility]) [address] [place], [address], 02/21/2024 09:14:59 02/20/2002/21/2024 T4F T4,free (direct) 1.31 NG/dL 0.82-1 .77 Not Available [facility] ([facility]) [address] [facility], [place], [address], 02/21/2024 09:15:00 02/20/2002/21/2024 CBC WITH DIFFE RENTI AL/PL ATELE T WBC 5.0 x10e3 /uL 3.4-10 .8 Not Available [facility] ([facility]) [address] [facility], [place], [address], 02/21/2024 09:15:01 02/20/2002/21/2024 CBC WITH DIFFE RENTI AL/PL ATELE T RBC 4.59 x10e6 /uL 3.77-5 .28 Not Available [facility] ([facility]) [address] [place], [address], 02/21/2024 09:15:01 02/20/2002/21/2024 CBC WITH DIFFE RENTI AL/PL ATELE T hemoglobin 14.9 g/dL 11.1-1 5.9 Not Available [facility] ([facility]) [address] [place], [address], 02/21/2024 09:15:01 02/20/2002/21/2024 CBC WITH DIFFE RENTI AL/PL ATELE T hematocrit 44.8 % 34.0-4 6.6 Not Available [facility] ([facility]) [address] [place], [address], 02/21/2024 09:15:01 02/20/2002/21/2024 CBC WITH DIFFE RENTI AL/PL ATELE T MCV 98 fL 79-97 above high normal Not Available [facility] ([facility]) [address] [facility], [place], [address], 02/21/2024 09:15:01 02/20/2002/21/2024 CBC WITH DIFFE RENTI AL/PL ATELE T MCH 32.5 pg 26.6-3 3.0 Not Available [facility] ([facility]) [address] [facility], [place], [address], 02/21/2024 09:15:01 02/20/2002/21/2024 CBC WITH DIFFE RENTI AL/PL ATELE T MCHC 33.3 g/dL 31.5-3 5.7 Not Available [facility] ([facility]) [address] [facility], [place], [address], 02/21/2024 09:15:01 02/20/2002/21/2024 CBC WITH DIFFE RENTI AL/PL ATELE T RDW 11.8 % 11.7-1 5.4 Not Available [facility] ([facility]) [address] [facility], [place], [address], 02/21/2024 09:15:01 02/20/20 24 02/21/2024 CBC WITH DIFFE RENTI AL/PL ATELE T platelets 298 x10e3 /uL 150-45 0 Not Available [facility] ([facility]) [address] [facility], [place], [address], 02/21/2024 09:15:01 02/20/2002/21/2024 CBC WITH DIFFE RENTI AL/PL ATELE T neutrophils 53 % notest ab. Not Available [facility] ([facility]) [address] [facility], [place], [address], 02/21/2024 09:15:01 02/20/20 24 02/21/2024 CBC WITH DIFFE RENTI AL/PL ATELE T lymphs 33 % notest ab. Not Available [facility] ([facility]) [address] [facility], [place], [address], 02/21/2024 09:15:01 02/20/2002/21/2024 CBC WITH DIFFE RENTI AL/PL ATELE T monocytes 10 % notest ab. Not Available [facility] ([facility]) [address] [facility], [place], [address], 02/21/2024 09:15:01 02/20/2002/21/2024 CBC WITH DIFFE RENTI AL/PL ATELE T eos 3 % notest ab. Not Available [facility] ([facility]) [address] [facility], [place], [address], 02/21/2024 09:15:01 02/20/20 24 02/21/2024 CBC WITH DIFFE RENTI AL/PL ATELE T basos 1 % notest ab. Not Available [facility] ([facility]) [address] [facility], [place], [address], 02/21/2024 09:15:01 02/20/2002/21/2024 CBC WITH DIFFE RENTI AL/PL ATELE T neutrophils (absolute) 2.6 x10e3 /uL 1.4-7. 0 Not Available [facility] ([facility]) [address] [facility], [place], [address], 02/21/2024 09:15:01 02/20/20 24 02/21/2024 CBC WITH DIFFE RENTI AL/PL ATELE T lymphs (absolute) 1.7 x10e3 /uL 0.7-3. 1 Not Available [facility] ([facility]) [address] [facility], [place], [address], 02/21/2024 09:15:01 02/20/20 24 02/21/2024 CBC WITH DIFFE RENTI AL/PL ATELE T monocytes(ab solute) 0.5 x10e3 /uL 0.1-0. 9 Not Available [facility] ([facility]) [address] [facility], [place], [address], 02/21/2024 09:15:01 02/20/2002/21/2024 CBC WITH DIFFE RENTI AL/PL ATELE T eos (absolute) 0.2 x10e3 /uL 0.0-0. 4 Not Available [facility] ([facility]) [address] [facility], [place], [address], 02/21/2024 09:15:01 02/20/20 24 02/21/2024 CBC WITH DIFFE RENTI AL/PL ATELE T baso (absolute) 0.1 x10e3 /uL 0.0-0. 2 Not Available [facility] ([facility]) [address] [facility], [place], [address], 02/21/2024 09:15:01 02/20/20 24 02/21/2024 CBC WITH DIFFE RENTI AL/PL ATELE T immature granulocytes 0 % notest ab. Not Available [facility] ([facility]) [address] [facility], [place], [address], 02/21/2024 09:15:01 02/20/20 24 02/21/2024 CBC WITH DIFFE RENTI AL/PL ATELE T immature grans (abs) 0.0 x10e3 /uL 0.0-0. 1 Not Available [facility] ([facility]) [address] [facility], [place], [address], 02/21/2024 09:15:01 02/20/20 24 02/21/2024 HBSAG SCREE N HBsAg screen NEGATI VE negati ve Not Available [facility] ([facility]) [address] [facility], [place], [address], 02/21/2024 09:15:03 02/20/20 24 02/21/2024 RPR, RFX QN RPR/C ONFIR M TP RPR NON REACTI VE nonrea ctive Not Available [facility] ([facility]) [address] [facility], [place], [address], 02/21/2024 09:15:05 02/20/2002/21/2024 HIV AB/P2 4 AG WITH REFLE X HIV Ab/P24 Ag screen NON REACTI VE nonrea ctive HIV-1 /HIV- 2 antib odies and HIV-1 p24 antig en were NOT detec coty. There is no labor atory evide nce of HIV infec tion. HIV Negat robert Not Available [facility] ([facility]) [address] [facility], [place], [address], 02/21/2024 09:15:07 02/20/2002/21/2024 NUSWA B VAGIN ITIS PLUS (VG+) atopobium vaginae HIGH - 2 score abnormal Not Available [facility] ([facility]) [address] [facility], [place], [address], 02/23/2024 03:06:39 02/20/20 24 02/21/2024 NUSWA B VAGIN ITIS PLUS (VG+) bvab 2 HIGH - 2 score abnormal Not Available [facility] ([facility]) [address] [facility], [place], [address], 02/23/2024 03:06:39 02/20/2002/21/2024 NUSWA B VAGIN ITIS PLUS (VG+) megasphaera 1 LOW - 0 score Calcu late total score by ely g the 3 indiv idual bacte rial vagin osis (BV) marke r score s toget her. Total score is inter prete d as follo ws: Total score 0-1: Indic ates the absen ce of BV. Total score 2: Indet ermin ate for BV. Addit ional clini lizy data shoul d be evalu ated to estab yrn a diagn osis. Total score 3-6: Indic ates the prese nce of BV. Not Available [facility] ([facility]) [address] [place], [address], 02/23/2024 03:06:39 02/20/2002/21/2024 NUA B VAGIN ITIS PLUS (VG+) florentin albicans, MAHAMED NEGATI VE negati ve Not Available [facility] ([facility]) [address] [facility], [place], [address], 02/23/2024 03:06:39 02/20/2002/21/2024 NUSWA B VAGIN ITIS PLUS (VG+) florentin glabrata, MAHAMED NEGATI VE negati ve Not Available [facility] ([facility]) [address] [facility], [place], [address], 02/23/2024 03:06:39 02/20/2002/22/2024 NUA B VAGIN ITIS PLUS (VG+) trich vag by MAHAMED NEGATI VE negati ve Not Available [facility] ([facility]) [address] [place], [address], 02/23/2024 03:06:39 02/20/2002/22/2024 NUA B VAGIN ITIS PLUS (VG+) chlamydia trachomatis, MAHAMED NEGATI VE negati ve Not Available [facility] ([facility]) [address] [place], [address], 02/23/2024 03:06:39 02/20/2002/22/2024 NUA B VAGIN ITIS PLUS (VG+) neisseria gonorrhoeae, MAHAMED NEGATI VE negati ve Not Available [facility] ([facility]) [address] [place], [address], 02/23/2024 03:06:39 02/20/2002/20/2024 IGP,A PTIMA HPV,A GE GDLN age gdln acog testing 30-65 Not Available [facility] ([facility]) [address] [place], [address], 02/27/2024 03:09:24 02/20/20 24 02/21/2024 IGP, APTIM A HPV, RFX 16/18 ,45 HPV aptima Positi ve negati ve abnormal This nucle ic acid ampli ficat ion test detec ts fourt een high- risk HPV types (16,1 8,31, 33,35 ,39,4 5,51, 52,56 ,58,5 9,66, 68) witho ut diffe renti ation . Not Available [facility] ([facility]) [address] [facility], [place], [address], 02/27/2024 03:09:26 02/20/2002/26/2024 IGP, APTIM A HPV, RFX 16/18 ,45 diagnosis: Alex lopes NEGAT ROBERT FOR INTRA EPITH ELIAL CARMELO N OR YASMIN RAO . Not Available [facility] ([facility]) [address] [facility], [place], [address], 02/27/2024 03:09:26 02/20/2002/26/2024 IGP, APTIM A HPV, RFX 16/18 ,45 specimen adequacy: Alex lopes Satis facteamon guerrier for evalu ation . Endoc ervic al and/o r squam ous metap lasti c cells (endo cervi lizy compo nent) are prese nt. Not Available [facility] ([facility]) [address] [facility], [place], [address], 02/27/2024 03:09:26 02/20/2002/26/2024 IGP, APTIM A HPV, RFX 16/18 ,45 clinician provided ICD10: Alex lopes Z12.4 Not Available [facility] ([facility]) [address] [facility], [place], [address], 02/27/2024 03:09:26 02/20/2002/26/2024 IGP, APTIM A HPV, RFX 16/18 ,45 performed by: Alex stone, [employer]ot echn[employer] logis t (ASCP ) Not Available [facility] ([facility]) [address] [facility], [place], [address], 02/27/2024 03:09:26 02/20/2002/26/2024 IGP, APTIM A HPV, RFX 16/18 ,45 . . Not Available [facility] ([facility]) [address] [facility], [place], [address], 02/27/2024 03:09:26 02/20/2002/26/2024 IGP, APTIM A HPV, RFX 16/18 ,45 note: Commen t The Pap smear is a scree leslee test rosalio bartholomew to aid in the detec tion of nicole ligna nt and malig nant condi tions of the uteri ne cervi x. It is not a diagn ostic proce dure and shoul d not be used as the sole means of detec ting cervi lizy cance r. Both false -posi tive and false -nega tive repor ts do occur . Not Available [facility] ([facility]) [address] [facility], [place], [address], 02/27/2024 03:09:26 02/20/2002/26/2024 IGP, APTIM A HPV, RFX 16/18 ,45 test methodology: Alex t This liqui d based ThinP rep(R ) pap test was scree puma with the use of an image guide starr guzman. Not Available [facility] ([facility]) [address] [facility], [place], [address], 02/27/2024 03:09:26 02/20/2002/26/2024 IGP, APTIM A HPV, RFX 16/18 ,45 HPV genotype reflex Commen t Crite rabia met, see HPV Genot ype resul ts. Not Available [facility] ([facility]) [address] [facility], [place], [address], 02/27/2024 03:09:26 02/20/20 24 02/27/2024 HPV GENOT YPES 16/18 ,45 HPV genotype 16 Negati ve negati ve Not Available [facility] ([facility]) [address] [facility], [place], [address], 02/27/2024 03:09:26 02/20/20 24 02/27/2024 HPV GENOT YPES 16/18 ,45 HPV genotype 18,45 Negati ve negati ve Not Available [facility] ([facility]) [address], [place], [address], 02/27/2024 03:09:26 02/20/2002/20/2024 urina lysis , dipst ick Leukocytes Trace Not Available In-Offi ce Order Internal Use Only DO Not Attach Compendium DO Not Attach Compendium, Do Not Delete/merge, [id number] 02/20/2024 10:34:25 02/20/2002/20/2024 urina lysis , dipst ick Nitrite negati ve Not Available In-Office Order Internal Use Only DO Not Attach Compendium DO Not Attach Compendium, Do Not Delete/merge, [id number] 02/20/2024 10:34:25 02/20/2002/20/2024 urina lysis , dipst ick Urobilinogen 1 Not Available In-Of fice Order Internal Use Only DO Not Attach Compendium DO Not Attach Compendium, Do Not Delete/merge, [id number] 02/20/2024 10:34:25 02/20/2002/20/2024 urina lysis , dipst ick Protein Negati ve Not Available In-Office Order Internal Use Only DO Not Attach Compendium DO Not Attach Compendium, Do Not Delete/merge, [id number] 02/20/2024 10:34:25 02/20/2002/20/2024 urina lysis , dipst ick pH 6.5 Not Available In-Office Order Internal Use Only DO Not Attach Compendium DO Not Attach Compendium, Do Not Delete/merge, [id number] 02/20/2024 10:34:25 02/20/2002/20/2024 urina lysis , dipst ick Blood Hemoly zed: Trace Not Available In-Office Order Internal Use Only DO Not Attach Compendium DO Not Attach Compendium, Do Not Delete/merge, [id number] 02/20/2024 10:34:25 02/20/20 24 02/20/2024 urina lysis , dipst ick Specific [place] 1.025 Not Available In-Off ice Order Internal Use Only DO Not Attach Compendium DO Not Attach Compendium, Do Not Delete/merge, [id number] 02/20/2024 10:34:25 02/20/20 24 02/20/2024 urina lysis , dipst ick Ketone Negati ve Not Available In-Office Order Internal Use Only DO Not Attach Compendium DO Not Attach Compendium, Do Not Delete/merge, [id number] 02/20/2024 10:34:25 02/20/20 24 02/20/2024 urina lysis , dipst ick Bilirubin Negati ve Not Available In-Office Order Internal Use Only DO Not Attach Compendium DO Not Attach Compendium, Do Not Delete/merge, [id number] 02/20/2024 10:34:25 02/20/20 24 02/20/2024 urina lysis , dipst ick Glucose Negati ve Not Available In-Office Order Internal Use Only DO Not Attach Compendium DO Not Attach Compendium, Do Not Delete/merge, [id number] 02/20/2024 10:34:25 01/05/20 23 01/04/2023 US, duple x, carot id arter y No observ ation record ed. [address] [place], [address], 01/14/2023 13:26:43 01/22/20 23 01/21/2023 MAMMO , scree leslee, bilat eral No observ ation record ed. [address] [place], [address], 01/31/2023 18:15:40 Result Notes None recorded. Problems Name Problem SNOMED Code Status Onset Date Resolution Date Notes Provider Name and Address Organization Details Recorded Time Elevated blood-pr essure reading without diagnosi s of hyperten ayaka 687688303 Completed 201707/14/2018 Asiya Douglas MD Attn: Ira huizar,[address] [facility], [place], [address], [place] [facility] 9 10:44:17 Foot callus 532798106 Active 2017 Bilatera l Asiya Douglas MD Attn: Ira huizar,[address] [facility], [place], [address] [facility] 8 12:28:03 Headache 55310989 Active 2017 Differen t from migraine s Asiya Douglas MD Attn: Ira huizar,[address] [facility], [place], [address] [facility] 8 12:28:41 Temporom andibula r joint disorder 69707079 Active 2017 left Asiya Douglas MD Attn: Ira huziar,[address] [facility], [place], [address], [place] [facility] 8 12:29:13 Essentia l hyperten ayaka 65710635 Active 2017 Newly diagnose d Asiya Douglas MD Attn: Ira huizar,[address] [facility], [place], [address] [facility] 8 13:34:10 Callosit y 983966761 Active 2018 4th and 5th toes L foot Asiya Douglas MD Attn: Ira huizar,[address] [facility], [place], [address], [place] [facility] 9 11:04:35 Dislocat ion of temporom andibula r joint 232311674 Active 2018 Asiya Douglas MD Attn: Ira huizar,[address] [facility], [place], [address] [facility] 9 23:46:24 Paresthe william of hand 741520567 Active 2019 Bilatera l Asiya Douglas MD Attn: Accountakua huizar,[address] , [place], [address], [place] [facility] 0 10:51:21 Mass of right breast 68850784946 545778 Active 2020 Sonya Rouse MD Attn: Bridgetteakua huizar,[address] [facility], [place], [address], [place] [facility] 4 09:55:14 Soft tissue lesion 670338458 Active 2020 rioght upper scapula Asiya Douglas MD Attn: Ira g,[address] [facility], [place], [address], [place] [facility] 1 17:12:24 Disorder of soft tissue 54085372 Active 2020 right upper back Asiya Douglas MD Attn: Ira huizar,[address] [facility], [place], [address], [place] [facility] 1 17:13:56 Family history of polyp of colon 639847924 Active 2022 Asiya Douglas MD Attn: Ira gaye,[address] [facility], [place], [address], [place] [facility] 3 11:04:24 Tobacco dependen ce syndrome 33304198 Active 2022 Sonya Rouse MD Attn: Bridgetteakua huizar,[address] [facility], [place], [address], [place] [facility] 4 09:55:03 Dyspnea 843176799 Active 2022 Asiya Douglas MD Attn: Ira g,[address] [facility], [place], [address] [facility] 3 11:05:32 Carotid bruit 546251576 Active 2022 Left Asiya Douglas MD Attn: Ira g,[address] [facility], [place], [address], [place] [facility] 3 11:06:14 Abnormal weight loss 335786630 Active 2022 Asiya Douglas MD Attn: Ira huizar,[address] [facility], [place], [address] [facility] 3 11:09:02 Screenin g for malignan t neoplasm of breast Active 2022 Asiya Douglas MD Attn: Ira huizar,[address] [facility], [place], [address] [facility] 3 11:15:29 Serum thyroid stimulat ing hormone level outside referenc e range 838325754 Active 2022 Sonya Rouse MD Attn: Ira huizar,[address] [facility], [place], [address] [facility] 4 09:55:05 Bacteria l vaginosi s 385713751 Active 2023 Sonya Rouse MD Attn: Ira huizar,[address] [facility], [place], [address] [facility] 4 09:55:35 Gynecolo gic examinat ion Active 2023 Sonya Rouse MD Attn: Ira huizar,[address] [place], [address], [place] [facility] 4 09:53:15 Vaginal dryness 57597125 Active 2023 Sonya Rouse MD Attn: Ira huizar,[address] [facility], [place], [address] [facility] 4 09:54:58 Menopaus al flushing 652007565 Active 2023 Sonya Rouse MD Attn: Ira huizar,[address] [place], [address], [place] [facility] 4 09:55:12 Insomnia 101282748 Active 2023 Sonya Rouse MD Attn: Ira gaye,[address] [facility] [place], [address], [place] [facility] 4 09:55:17 Screenin g for malignan t neoplasm of cervix Active 2023 Sonya Rouse MD Attn: Accountin g,[address] [facility], [place], [address], [place] [facility] 4 09:53:24 Female stress incontin ence 61763577 Active 2023 Sonya Rouse MD Attn: Accountin g,[address] [facility], [place], [address], [place] [facility] 4 09:55:31 Venereal disease screenin g Active 2023 Sonya Rouse MD Attn: Accountin g,[address] [place], [address], [place] [facility] 4 09:53:26 Screenin g mammogra phy Active 2023 Sonya Rouse MD Attn: Accountin g,[address] [facility], [place], [address], [place] [facility] 4 09:53:31 Marijuan a user 031408211 Active 2023 Sonya Rouse MD Attn: Accountin g,[address] [facility], [place], [address], [place] [facility] 4 09:55:15 Vaping Active 2023 Sonya Rouse MD Attn: Accountin g,[address] [place], [address] [facility] 4 09:54:56 Subclini lizy hyperthy roidism 118964020 Active 2023 TSH 0.28 in Feb 2024, T4 WNL Sonya Rouse MD Attn: Accountin g,[address] [facility], [place], [address], [place] [facility] 4 10:37:31 Human papillom a virus infectio n 208155784 Active 2023 pap smear 02/20/24 NSIL HPV+, recommen d retest in 1 year Sonya Rouse MD Attn: Bridgetteakua huizar,[address] [place], [address], [place] [facility] 4 19:23:52 Finger joint - synovial swelling 873114426 Active Mukul [place] [facility] 6 17:31:30 Menopaus al symptom 31914888 Active Sonya Rouse MD Attn: Ira gaye,[address] [place], [address] [facility] 4 09:55:11 Furuncle of vulva 582832285 Active Mukul [place] [facility] 6 17:31:30 Infectio n by Trichomo sera 14761516 Completed 02/24/2024 Sonya Rouse MD Attn: Ira huizar,[address] [facility], [place], [address], [place] [facility] 4 09:55:24 Abnormal uterine bleeding 20630278701 100 Active Mukul [place] [facility] 6 17:31:30 Abscess of vulva 87057972 Active Ingrid Nasc[place] [facility] 6 12:26:01 Upper respirat ory infectio n 54606645 Active 2015 Asiya Douglas MD Attn: Ira huizar,[address] [place], [address], [place] [facility] 6 17:12:31 Gastroes ophageal reflux disease 086555899 Active 2015 Asiya Douglas MD Attn: Ira huizar,[address] [place], [address], [place] [facility] 6 17:14:17 Pain in right arm 338454964 Active 2015 Asiya Douglas MD Attn: Ira huizar,[address] [place], [address] [facility] 6 17:18:46 Vertigo 772161067 Active 2016 Asiya Douglas MD Attn: Ira huizar,[address] [facility], [place], [address] [facility] 7 19:15:44 Dizzines s 608262740 Active 2016 Asiya Douglas MD Attn: Ira huizar,[address] [facility], [place], [address], [place] [facility] 7 19:16:10 Pain in wrist 91347708 Active Mukul [place] [facility] 6 17:31:30 Cough 85524003 Active [place]ul [place] [facility] 6 17:31:30 Tobacco user 839616704 Active Sonya Rouse MD Attn: Bridgetteakua huizar,[address] [facility], [place], [address], [place] [facility] 4 09:55:00 Allergic rhinitis 90795509 Active [place]ul [place] [facility] 6 17:31:30 Palpitat ions 63735360 Active [place] [facility] 6 17:31:30 Atypical chest pain 317936288 Active [place] [facility] 6 17:31:30 Fibrocys tic disease of breast 41436928 Active Sonya Rouse MD Attn: Ira gaye,[address] [facility], [place], [address], [place] [facility] 4 09:55:25 Pain in female genitali a on intercou rse 89296829 Active Mukul [place] [facility] 6 17:31:30 Problem Notes None recorded. Procedures Surgical History Date Name Laterality Status Provider Name and Address Organization Details Recorded Time 4 Date of Last Pap Smear completed Ingrid [place]asc[place] [facility] 02/20/2024 09:55:10 3 Date of Last Mammogram completed Ingrid NascimentoDESTINY [facility] 02/19/2024 11:05:00 9 ovarian ablation completed Ingrid HawkshawDESTINY [facility] 02/20/2024 09:54:28 5 Most Recent Mammogram completed Ingrid NascimentoDESTINY [facility] 12/06/2014 10:29:05 3 Tubal Ligation completed Asiya Douglas MD Attn: Accounting,[address] [place], [address], [facility] 05/18/2014 14:52:22 0 open reduction of fracture of facial bone completed Ingrid Nascimento MA [facility] 02/20/2024 09:56:23 Other completed Asiya Douglas MD Attn: Accounting,[address] [place], [address], [facility] 05/18/2014 14:52:22 Imaging Results Imaging Date Name Status LastModified by Organiz ation Details LastModified Time 01/04/2023 US, duplex, carotid artery completed [address] [place], [address], 01/14/2023 13:26:43 01/21/2023 MAMMO, screening, bilateral completed [address] [place], [address], 01/31/2023 18:15:40 Procedure Notes None recorded. Medical Equipment None Reported. Allergies No known drug allergies Medications Name Sig Start Date Stop Date Status Note LastModified by Organization Details LastModified Time bupropion HCl SR 150 mg tablet,12 hr sustained -release TAKE 1 TABLET BY MOUTH TWICE DAILY active Not Available Not Available No t Available cefuroxim e axetil 250 mg tablet 03/17 completed Not Available Not Available Not Available lisinopri l 20 mg-hydroc hlorothia zide 12.5 mg tablet TAKE 1 TABLET BY MOUTH TWICE DAILY 12/25 completed Not Available Not Available Not Available azithromy sera 250 mg tablet TAKE 2 TABLETS (500 MG) BY ORAL ROUTE ONCE DAILY FOR 1 DAY THEN 1 TABLET (250 MG) BY ORAL ROUTE ONCE DAILY FOR 4 DAYS 07/14 completed Not Available Not Available Not Available aspirin 325 mg tablet Take 1 tablet every day by oral route. 07/14 completed OTC Not Available Not Available Not Available ranitidin e 300 mg tablet TAKE 1 TABLET BY MOUTH TWICE DAILY NEEDED 09/15 completed Not Available Not Available Not Available hydrocodo ne 5 mg-acetam inophen 325 mg tablet TAKE 1 TABLET BY MOUTH EVERY 6 HOURS NEEDED FOR PAIN 02/19 completed Not Available Not Available Not Available prednison e 20 mg tablet 12/21 completed Not Available Not Available Not Available penicilli n V potassium 500 mg tablet 03/17 completed Not Available Not Available Not Available metronida zole 500 mg tablet TAKE 1 TABLET BY MOUTH TWICE DAILY FOR 7 DAYS DIRECTED active Not Available Not Available No t Available sulfameth oxazole 800 mg-trimet hoprim 160 mg tablet TAKE 1 TABLET BY MOUTH TWICE DAILY FOR 10 DAYS 02/19 completed Not Available Not Available Not Available peg-elect rolyte solution 420 gram oral solution MIX AND DRINK DIRECTED 02/19 completed Not Available Not Available Not Available meloxicam 7.5 mg tablet Take 1 tablet every day by oral route with meals. 03/17 completed Not Available Not Available Not Available famotidin e 20 mg tablet Take 1 tablet twice a day by oral route for 30 days. 09/15 completed Received refill request from [facility] for famotidi ne. Refill approved and erx'd to [facility]. Not Available Not Available Not Available meclizine 25 mg tablet 03/17 completed Not Available Not Available Not Available benzonata te 100 mg capsule Take 1 capsule 3 times a day by oral route for 14 days. 09/15 completed Not Available Not Available Not Available cephalexi n 500 mg capsule Take 1 capsule every 6 hours by oral route as directed for 7 days. 03/17 completed Not Available Not Available Not Available lisinopri l 10 mg tablet TAKE 1 TABLET BY MOUTH EVERY DAY active Not Available Not Available No t Available omeprazol e 20 mg capsule,d elayed release TAKE 1 CAPSULE BY MOUTH EVERY DAY BEFORE A MEAL 12/25 completed Not Available Not Available Not Available Replens vaginal gel Insert one applicat or full vaginall y twice a day or as needed 2023 active Not Available Not Available Not Avai lable mupirocin 2 % topical ointment APPLY TOPICALL Y TO THE AFFECTED AREA TWICE DAILY FOR 1 WEEK 02/19 completed Not Available Not Available Not Available Low-Ogest rel (28) 0.3 mg-30 mcg tablet TAKE 1 TABLET BY MOUTH EVERY DAY 12/25 completed Not Available Not Available Not Available gabapenti n 100 mg capsule TAKE 1 CAPSULE BY MOUTH THREE TIMES DAILY 12/25 completed Not Available Not Available Not Available albuterol sulfate HFA 90 mcg/actua tion aerosol inhaler INHALE 2 PUFFS BY MOUTH FOUR TIMES DAILY 02/19 completed Not Available Not Available Not Available ketoconaz ole 2 % topical cream 12/21 completed Not Available Not Available Not Available fluticaso ne propionat e 50 mcg/actua tion nasal spray,tammie pension [place] 2 sprays every day by intranas al route. 12/25 completed Not Available Not Available Not Available naproxen 500 mg tablet 07/14 completed Not Available Not Available Not Available amoxicill in 875 mg-potass ium clavulana te 125 mg tablet TAKE 1 TABLET BY MOUTH TWICE DAILY 02/19 completed Not Available Not Available Not Available Personal Lubricant vaginal solution Use as needed for sexual intercou rse 2023 active Not Available Not Available Not Avai lable Aleve 12/25 completed OTC (taken once a day) Not Available Not Available Not Available norethind megan acetate 0.5 mg-ethiny l estradiol 2.5 mcg tablet Take 1 tablet every day by oral route. 03/17 completed Not Available Not Available Not Available Vitals Date Recorded Body height Body mass index (BMI) Body weight Body temperature Oxygen saturation Oxygen saturation in Arterial blood by Pulse oximetry Heart rate Systolic blood pressure Diastolic blood pressure Provider Name and Address Organization Details Last Updated DateTime 3 167.64 cm 19.9 kg/m2 32247.8 6 g 98.1 [degF] 98 % 98 % 98 /min 126 mm[Hg] 78 mm[Hg] Christina Nicholson MA [facility] 3 10:23:58 Date Recorded Body height Oxygen saturation Oxygen saturation in Arterial blood by Pulse oximetry Heart rate Body temperature Systolic blood pressure Diastolic blood pressure Provider Name and Address Organization Details Last Updated DateTime 3 167.64 cm 98 % 98 % 98 /min 98.2 [degF] 122 mm[Hg] 78 mm[Hg] Mary Rosenberg MA [facility] 3 15:36:31 Date Recorded Body height Body mass index (BMI) Body weight Heart rate Body temperature Oxygen saturation Oxygen saturation in Arterial blood by Pulse oximetry Systolic blood pressure Diastolic blood pressure Provider Name and Address Organization Details Last Updated DateTime 3 167.64 cm 19 kg/m2 02504.9 g 82 /min 98.1 [degF] 98 % 98 % 126 mm[Hg] 82 mm[Hg] Christina Nicholson MA [facility] 3 11:54:55 Date Recorded Body height Body mass index (BMI) Body weight Oxygen saturation Oxygen saturation in Arterial blood by Pulse oximetry Heart rate Systolic blood pressure Diastolic blood pressure Provider Name and Address Organization Details Last Updated DateTime 4 167.64 cm 24.6 kg/m2 79191.1 4 g 98 % 98 % 75 /min 124 mm[Hg] 88 mm[Hg] Ingrid Nascimento MA [facility] 4 09:59:40 Social History Question Answer Notes LastModified by Organizat ion Details LastModified Time Tobacco Smoking Status Former Smoker Ingrid Nascimento MA [facility], [facility] 02/20/2024 09:55:50 Do You Have An Advance Directive? No Information not available 12/06/2014 What Is Your Level Of Alcohol Consumption? None Information not available 11/11/2014 Is Blood Transfusion Acceptable In An Emergency? Yes Information not available 12/06/2014 What Is Your Level Of Caffeine Consumption? Moderate Information not available 11/11/2014 How Much Tobacco Do You Chew? None Information not available 12/06/2014 Are You Currently Employed? No Information not available 12/06/2014 What Type Of Diet Are You Following? REGULAR Information not available 12/06/2014 Do You Or Have You Ever Used E-cigarettes Or Vape? Current User Of Electronic Cigarettes Information not available 02/20/2024 Education 12 Information no t available 12/06/2014 Live Alone Or With Others? With Others Information not available 12/06/2014 What Was The Date Of Your Most Recent Tobacco Screening? 02/20/2024 Information not available 02/20/2024 How Many Children Do You Have? 3 Information not available 12/06/2014 Performs Monthly Self-breast Exam? No Information not available 12/06/2014 Do You Use Protection During Sex? No Information not available 12/06/2014 What Is Your Relationship Status? Single Information not available 12/06/2014 Do You Use Your Seat Belt Or Car Seat Routinely? Yes Information not available 02/20/2024 Seat Belts Used Routinely Yes Information not available 12/06/2014 Are You Sexually Active? Yes Information not available 12/06/2014 Do You Have Smoke And Carbon Monoxide Detectors In Your Home? Yes Information not available 02/20/2024 At What Age Did You Start Smoking Tobacco? 18 Information not available 12/06/2014 Are You Passively Exposed To Smoke? Yes Information not available 02/20/2024 Do You Or Have You Ever Used Smokeless Tobacco? Never Used Smokeless Tobacco Information not available 02/20/2024 How Much Tobacco Do You Smoke? 0.5 PPD Information not available 12/06/2014 General Stress Level High Information not available 12/06/2014 Do You Use Any Illicit Or Recreational Drugs? Yes Marijuana Information not available 02/20/2024 Do You Use Sunscreen Routinely? No Information not available 12/06/2014 Has Tobacco Cessation Counseling Been Provided? Yes [email or web address] Information not available 12/25/2022 On What Date Was Tobacco Cessation Counseling Provided? 02/20/2024 Information not available 02/20/2024 How Many Years Have You Smoked Tobacco? 31 [email or web address] Information not available 05/18/2014 Do You Or Have You Ever Used Any Other Forms Of Tobacco Or Nicotine? Yes Information not available 02/20/2024 How Many Years Have You Used E-cigarettes Or Vape? 1 Information not available 02/20/2024 Sex: Unknown Functional Status Question Answer Note LastModified by Organization D etails LastModified Time What is your exercise level? Moderate Information not available 12/06/2014 Mental Status None recorded. Family History Relationship Description Onset Age of this Age Resolved Age Notes LastModified by Organization Details LastModified Time Mother History of cerebrovascu lar accident [email or web address] Not available 17:31:40 Mother Hypertensive disorder [email or web address] Not available 2015 17:31:40 Mother Epilepsy Not availabl e 10/26/2015 17:31:40 Father Heart disease [email or web address] Not available 2015 17:31:40 Father Hypertensive disorder [email or web address] Not available 2015 17:31:40 Father Hypercholest erolemia [email or web address] Not available 2015 17:31:40 Father Myocardial infarction [email or web address] Not available 10/25 17:31:40 Father Migraine Not availabl e 10/26/2015 17:31:40 Medical History Condition Response Coronary Artery Disease N Blood Diseases N Kidney Cyst N Hyperthyroidism N Blood disorders N MRSA N Blood Transfusion N Emphysema N Blood Clots N COPD N Depression N Pneumonia N Peripheral Arterial Disease N Premature N Edema N TIA N Headaches/Migraines Y Anxiety Disorder N Obesity N Infertility N Polyps N Acid Reflux (GERD) N Hematuria N Stroke N Neck Injury N Polio N Hospital Admission other than N Neurologic Disorder N Other Sleep Disorders N Rheumatoid Arthritis N Fibromyalgia N Abdominal Aortic Aneurysm Repair N Kidney Disease N Heart Conditions N Heart Disease/Heart Problems N Hospitalizations N Brain Tumors N Acne N Eating Disorder N Skin Problems N Constipation N Meningitis N Tuberculosis N Cerebral Palsy N Myocardial Infarction N Asthma N Substance Abuse N Peripheral Vascular Disease N Vertigo N Sleep Disorder N Cirrhosis N Pulmonary Embolism N Chicken Pox N Flomax Use Past or Present N Hematologic Disease N Anxiety/Depression N Thyroid Disease N Colon Cancer N Glaucoma N Lung Disease N Developmental or Behavioral Disorders N Bipolar N Pacemaker N Diverticulitis/Diverticulosis N Anesthesia Complications N Orthopedic Problems N Orthotics N Head Injury/Concussion N Congenital Anomalies N Hernandez Bite N Chronic Kidney Disease N Endometriosis N Liver Disease N Dialysis N Schizophrenia N Speech Delay N Chronic Obstructive Pulmonary Disease N Parkinson's Disease N Thyroid Problems N GI Problems N Developmental Delay N Anemia N Immune System Disorder N Multiple Sclerosis N Colon Polyps N Heart Attack (HI) N Diabetes N Cardiomyopathy N Blood Transfusions N Heart Problems/Murmur N Eye Trauma N Congestive Heart Failure (CHF) N Valvular Heart Disease N Hyperlipidemia N Double Vision N Abuse/Domestic Violence N Hepatitis B N Lupus N Epilepsy/Seizures N Reflux/GERD N Aneurysm N Bronchitis N Heart Disease N Hypertension N Pre-Eclampsia N Heart Failure N Other N Gout N High Blood Pressure N Atrial Fibrillation N Kidney Stones N Head Trauma/Injury N Congenital Heart Disease N Spine Problems N Gastrointestinal Disease N Lung Mass N Sinusitis N Obstructive Sleep Apnea N Muscle, Joint, or Bone Problems Y Autoimmune disease N Vision or Eye Problems N Arthritis N Blood Clot N Cancer Y Seasonal allergies N Leg or Foot Ulcers N Raynaud's Disease N Aortic Aneurysm N Arrhythmia N Headaches N Heart Problems N Ambloypia N Ear or Hearing Problems N Hyperparathyroidism N Migraines Y Artificial Joints N Kidney or Bladder Problems N NSAID Use N Encephalitis N PTSD N Ulcers N Prostate Hypertrophy N Bleeding Disorder N AIDS/HIV N Urinary Tract Infection N Back Problems N Allergies N Atrial Flutter N GERD/Reflux N Hepatitis N Autism Spectrum Disorder (ASD) N Breast Cancer N Hernia N Hypothyroidism N Breast Problem N Genitourinary Disease N Deep Vein Thrombosis N Varicose Veins N Cystic Fibrosis N Hearing Loss N Developmental Problems N Carotid Disease N Vitamin D Deficiency N ADHD N Bladder or Kidney Problems N High Cholesterol N [place] N Valvular Abnormalities N Psychiatric/Mental Health Condition N Organ Transplant N Foot Deformity N Allergies/Hayfever N Dyslipidemia N Hyponatremia N Diabetic Eye Disease N Osteoporosis/Osteopenia N Back Pain N Proteinuria N Mental Illness N Neurological Problems N Ovarian Cancer N Bedwetting N Seizures/Epilepsy N Kidney Failure N Ocular trauma N Dementia N Diverticulitis N Sleep Apnea N Mental Problems N Warfarin Management N Osteoporosis N Gynecological History Statement/Question Response Date of Last Mammogram 01/21/2023 Date of LMP 05/06/2018 STIs/STDs N HPV Vaccine N Most Recent Mammogram 05/20/2014 Age at Menarche 15 Current Control Method Tubal Ligat ion Age at First Child 22 Frequency of Cycle (Q days) Sexually Active? Y Menses Monthly N Date of Last Pap Smear 02/20/2024 Sexual Problems? N LMP Approximate Desired Control Method None Obstetrics History GPAL:G 4 P 3 0 1 3 Type Value Multiple Births 0 Full Term 3 Induced 1 Spontaneous 0 Premature 0 Living 3 Ectopics 0 Total 4 Immunizations Vaccine Type Date Status Note Provider Nam e and Address Organization Details Recorded Time Hep A, adult 10/17/2023 completed Christina Nicholson MA [facility] [place], [place] - [facility] 10/17/2023 10:58:17 Past Encounters Encounter ID Performer Location Encounter Start Date Encounter Closed Date Diagnosis/Indication Diagnosis SNOMED-CT Code Diagnosis ICD10 Code Diagnosis Note [id number] DESTINY Thurman (Adult Med) [address] [place] [address] [id number] 0 05/18/2014 13:37:05 05/18/2014 15:37:09 Pain in wrist 33867698 Cough 50190586 Tobacco user [id number] Allergic rhinitis 78986248 Palpitations 58167028 Atypical chest pain 616757165 Fibrocysti c disease of breast 50413049 Pain in fe male genitalia on intercourse 94641521 [id number] MD Maren Emery (Adult Med) [address] [place] [address] [id number] 0 11/11/2014 15:26:58 11/15/2014 09:00:41 Finger joint - synovial swelling [id number] Tobacco user [id number] Maren (TOBACCO STEMMER) [address] [place] [address] [id number] 0 12/06/2014 09:53:22 12/06/2014 11:20:32 Gynecologic examination 65314914 Menopausal symptom 01409022 Furuncle of vulva 775589320 [id number] DESTINY Ramsay ([employer]) [address] [place] [address] [id number] 0 12/28/2014 10:49:05 12/28/2014 12:57:21 Infection by Trichomonas [id number] SHAKIRA Ospina (TOB[employer] STEM[employer]) [address] [place] [address] [id number] [id number] 05/20/2015 09:43:40 05/20/2015 15:36:31 Abnormal uterine bleeding 4781130354 9100 N93.9 [id number] Mukul Engel (TOBAC[employer] STEMMER) [address] [place] [address] [id number] 0 07/13/2015 13:55:58 07/13/2015 17:33:54 Abnormal uterine bleeding 9665202945 9100 N93.9 Proliferat robert endometriu m noted on D&C pathology report from 06/28/15. Informed patient of reassuring results. [id number] Mukul Engel (TOBACCO STEMMER) [address] [place] [address] [id number] 0 10/26/2015 15:44:23 11/03/2015 15:10:38 Abscess of vulva 98204907 N76.4 [id number] MD Maren Emery (Adult Med) [address] [place] [address] [id number] 03/27/2016 16:16:02 03/27/2016 17:25:39 Upper respiratory infection 90288361 J06.9 Gastroesop hageal reflux disease 732659893 K21.9 Pain in right arm 517386 004 M79.316 [id number] MD Maren Emery (Adult Med) [address] [place] [address] [id number] 0 05/09/2016 15:42:23 05/09/2016 17:50:08 Dizziness 599493787 R42 Pt to contact ENT if sx persist Vertigo 606118800 R42 [id number] MD Maren Emery (Adult Med) [address] [place] [address] [id number] 0 07/22/2017 11:46:42 07/22/2017 12:37:28 Elevated blood-pressure reading without diagnosis of hypertension 486179984 R03.0 Foot callus 087101500 L8 4 Temporoman dibular joint disorder 64907154 M26.609 Headache 44175716 R51 [id number] MD Maren Emery (Adult Med) [address] [place] [address] [id number] 0 10/28/2017 11:45:39 10/28/2017 13:40:54 Essential hypertension 98632074 I10 [id number] MD Maren Emery (Adult Med) [address] [place] [address] [id number] 0 11/25/2017 12:08:32 11/26/2017 10:21:57 Essential hypertension 98592993 I10 Well controlled . Continue current rx [id number] MAC Briggs (Adult Med) [address] [place] [address] [id number] 03/17/2018 10:46:25 03/17/2018 11:25:59 Acute left otitis media 971247253 H66.92 Upper resp iratory infection 03884063 J06.9 Advised to drink plenty of waterAlter ashvin ibuprofen and tylenol for painRestOT C cough syrup PRN Gastroesop hageal reflux disease 586716783 K21.9 Advised to stay away from spicy and greasy foodsAdvis ed to stay away from fatty foodsDo not eat within 2 hours of going to bedStay sitting up after mealsNo smoking [id number] DAVE Benavides (Adult Med) [address] [place] [address] [id number] 0 05/12/2018 10:44:17 05/13/2018 09:03:48 Upper respiratory infection 02546637 J06.9 Advised to drink plenty of waterAlter ashvin ibuprofen and tylenol for painRestOT C cough syrup PRN Persistent cough 7076341 02 R05 smoker advised to quit smoking Acute exac erbation of chronic obstructive pulmonary disease 849358535 J44.1 Essential hypertension 97853167 I10 [id number] MD Maren Emery (Adult Med) [address] [place] [address] [id number] 0 07/14/2018 10:00:39 07/14/2018 10:48:52 Essential hypertension 59832460 I10 REASSESS AT NEXT ov FOR MED CHANGE. Continue current rx Tobacco user 371569082 Z 72.0 Gastroesop hageal reflux disease 869587612 K21.9 [id number] MD Maren Emery (Adult Med) [address] [place] [address] [id number] 0 09/15/2018 09:35:30 09/15/2018 10:57:59 Headache 13688971 R51 Gastroesop hageal reflux disease 201293273 K21.9 Fibrocysti c disease of breast 06383098 N60.19 Palpitations 17984386 R0 0.2 Essential hypertension 02956938 I10 Change to lisinopril /Hctz Tobacco user 256198428 Z 72.0 [id number] MD Maren Emery (Adult Med) [address] [place] [address] [id number] 0 11/17/2018 10:07:26 11/17/2018 10:57:16 Essential hypertension 85326446 I10 Discussed likelihood that dizziness not related to new BP med regimen. Pt will restart BID regimen and observe for recurrence of sx. [id number] MD Maren Emery (Adult Med) [address] [place] [address] [id number] 0 03/23/2019 09:42:49 03/23/2019 11:17:43 Callosity 691027367 L84 Temporoman dibular joint disorder 42719511 M26.019 [id number] MD Maren Emery (Adult Med) [address] [place] [address] [id number] 09/21/2019 09:41:20 09/22/2019 14:10:56 Paresthesia of hand 314156344 R20.2 Gastroesop hageal reflux disease 422453025 K21.9 Essential hypertension 39141195 I10 [id number] MD Maren Emery (Adult Med) [address] [place] [address] [id number] 0 05/30/2020 10:27:52 05/31/2020 10:13:27 Gastroesophageal reflux disease 800452555 K21.9 Mass of right breast 909 6608975 4542299 N63.10 Essential hypertension 33445287 I10 [id number] MD Maren Emery (Adult Med) [address] [place] [address] [id number] 0 12/21/2020 16:12:22 12/29/2020 08:10:28 Disorder of soft tissue 45076696 M79.9 Essential hypertension 57406891 I10 Gastroesop hageal reflux disease 565846459 K21.9 [id number] MD Maren Emery (Adult Med) [address] [place] [address] [id number] 0 12/25/2022 10:08:32 12/28/2022 12:02:54 Dyspnea 203696304 R06.00 Dizziness 844913531 R42 Carotid bruit 261984082 R09.89 Tobacco de pendence syndrome 38120091 F17.200 Abnormal weight loss 267 974159 R63.4 Family his tory of polyp of colon 380675310 Z83.71 Screening for malignant neoplasm of breast 785670406 Z12.39 [id number] MD Maren Starr (Adult Med) [address] [place] [address] [id number] 0 02/19/2023 15:31:12 02/27/2023 16:17:45 Paronychia of finger 673384743 L03.019 Will apply Mupirocin ointment BID starting tonight and once colonoscop y is over tomorrow will start Bactrim BID. Discussed side effects of Bactrim including skin and mucous membrane reaction. If patient has skin or mucous membrane reaction she was instructed to stop medication and seek medical attention. Will return if it is not improving in two to three days or if worse. Also was able to get some wound drainage for culture. [id number] MD Maren Emery (Adult Med) [address] [place] [address] [id number] 0 04/01/2023 11:32:13 04/02/2023 11:30:40 Serum thyroid stimulating hormone level outside reference range 192606920 R89.1 Continued weight loss. Scheduled to see endocrine in three weeks Palpitations 19069943 R0 0.2 Menopausal symptom 61446 002 N95.1 Refer to ELECTRICAL PROSPECTING SUPERVISOR Tobacco de pendence syndrome 62713487 F17.200 Abnormal weight loss 267 317610 R63.4 Scheduled to see endocrine in three weeks [id number] DESTINY Painter (Adult Med) [address] [place] [address] [id number] 0 10/17/2023 10:28:52 10/18/2023 10:32:22 Requires a hepatitis A vaccination 531716885 Z28.39 [id number] MD Maren Jay (TOBAC[employer] STEMMER) [address] [place] [address] [id number] 0 02/20/2024 09:10:25 03/06/2024 10:36:47 Insomnia 348614544 G47.00 Attributed to night sweats and shift work. Management of menopausal symptoms as above. Counselled on improved sleep hygeine and having routine when returning home from work. Vaginal dryness 11546497 N89.8 Symptoms with intercours e, otherwise not causing distress. Will pursue trial of conservati ve management . - Nuswab and urine dipstick as below to rule out infectious cause- vaginal moisturize r, patient advised to use daily regardless of sexual activity- additional lubricatio n with intercours e- consider estrogen cream for refractory symptoms Gynecologi c examination 08800205 Z01.419 Encounter for routine gynecologi c exam with abnormal findings as below. Screening for malignant neoplasm of cervix 927846592 Z12.4 Patient is due for pap smear with HPV testing as per USPFTF guidelines . Female str ess incontinence 73703534 N39.3 DDX UTI, pelvic floor dysfunctio n, vaginitis. vulvar atrophy, diabetes. Urine dipstick not suggestive of infection. Nuswab as below. Test A1c. Serum thyr oid stimulating hormone level outside reference range 195051176 R89.1 TSH 0.297 on 12/25/22. Not currently on any thyroid medication . No current symptoms. Will recheck. Menopausal flushing 1983 40506 N95.1 Severe night sweats and hot flashes attributed to menopause. Other differenti als include thyroid dysfunctio n, electrolyt e imbalance, diabetes, anemia. Patient also with vaping as below. - CBC, CMP, TSH, A1c- trial of bupropion, start with lowest dose and titrate up as needed- follow-up in 1-2 months Venereal d isease screening 628305441 Z11.3 Complete STI screening. No known exposures or symptoms. Screening mammography 277726 Z12.31 Patient is due for bilateral screening mammogram as per USPSTF guidelines . Mass of right breast 463 8796367 5991515 N63.10 DDX fibrocysti c change, past marker from biopsy, neoplastic mass. Plan on diagnostic mammogram and US. Overdue for screening mammogram as above. Marijuana user 134530702 F12.90 Counselled on marijuana cessation. Has already cut back, and encouraged to continue progress. Vaping 735347827 Z77.29 Counselled on vaping cessation. Has already cut back, and encouraged to continue progress.P atient desires cessation and adjunctive medication . - trial of bupropion as above- counseled on choosing quit date after starting bupropion Health Concerns Section Related Observation LastModified by Organization Detai ls LastModified Time None Recorded Concern Status LastModified by Organization Details LastModified Time None Recorded Advance Directives Directive N: Payers Encounter Date Sequence Insurance Name Policy Number Policy Mock Covered Member ID Mock Member ID Guarantor Name 12/25/2022 1 [employer] [id number] Magda Gabonese [id number] Magda Gabonese 02/19/2023 1 [employer] [id number] Magda Gabonese [id number] Magda Gabonese 04/01/2023 1 [employer] [id number] Magda Gabonese [id number] Magda Gabonese 10/17/2023 1 [employer] [id number] Magda Gabonese [id number] Magda Gabonese 02/20/2024 1 [employer] [id number] Magda Gabonese [id number] Magda Gabonese Notes Date Note Type Note Provider Name and Address Organization Details Recorded Time 12/25/2022 text/html Stopped smoking three years ago. She now vapes. She has been experiencing exertional dyspnea in the past three months. She has lost a significant amount of weight in the past year. Had biopsy of right breast in 2020. Reportedly benign.. Off all meds Asiya Douglas MD Attn: Accounting[address] [facility], [place], [address], [place] [facility] 12/25/2022 11:17:59 02/19/2023 text/html has colonoscopy tomorrow, four or five days ago thumb sore, woke up four days ago and couldn't bend thumb, it was swollen and red, very painful, took tweezers two days ago, burnt them and used it to incise wound on thumb, had yellow drainage, since then it looks bruised but it has been better, less pain, no fevers, tonight takes medication for colonoscopy, Nikki Padron MD Attn: Accounting[address] [facility], [place], [address], [place] - [facility] 02/19/2023 17:21:40 04/01/2023 text/html Here for routine f/u. No new complaints but continues to lose weight. Her appetite is good Has hot flashes x3 yrs. Asiya Douglas MD Attn: Accounting[address] [facility], [place], [address], [place] [facility] 04/01/2023 12:29:33 02/20/2024 text/html Annual GYNReport ed bypatient.History: vaginal dryness Menstrual cycle:menopausal Urinary symptoms:No hematuria;Incontin ence;Stress incontinence;Urge incontinence Vulva:No genital lesion Vagina:Normal vaginal discharge Breast:No breast pain; No nipple discharge;Breast lump; History of breast cysts and biopsy, has markers in place, no pain, skin changes, or nipple drainage Current Contraception:[place] gamous relationship; New sexual partner Sexual complaints:Sexual complaints;Excessi ve facial or body hair (hirsutism) Menopausal Symptoms:Hot flashes;Inadequacy of lubrication of vaginal mucosa;Insomnia due to night sweats Psychological symptoms:No anxiety; No PMDD;Depression(mi ld, no SI or HI) Preventive measures:Encourage regular exercise; Encourage no tobacco use; Encourage regular mammograms starting age 40 Tabby is a 58 y/o with a history of HTN, GERD, insomnia, fibrocystic breast disease, and tobacco use presenting for a well woman exam. She reports vaginal dryness for the past few years, only when trying to have intercourse with her boyfriend. No symptoms otherwise. Causing strain in relationship. Has not tried lube. She denies fever, chills, headache, dizziness, chest pain, palpitations, cough, shortness of breath, abdominal pain, nausea, vomiting, constipation, diarrhea, swelling, itching, rashes, numbness, and tingling. Denies dysuria, itching, discharge, bleeding, hematuria. She does endorse insomnia, night sweats and longstanding stress and urge incontinence, wears panty liner daily for leakage. LMP about 5 years ago, had ablation SocialNew boyfriend is 31 y/o, feels safe in relationshipVapes, smokes marijuanaNo other drugs since last year, has gained weight since recoveringNo drinking Nicol Salcedo MD Attn: Accounting[address] [facility], [place], [address], [place] [facility] 03/06/2024 08:08:37 OBGyn Episode Ob Episode Information Episode Created Date Number of Fetuses Patient Bloodtype Patient rh Status Prepregnancy Weight lbs Domestic Partner Domestic Partner Phone Father Name Business Transformation Analyst Status 10/26/19 16 1 CLOSED Fetus Data First Name Last Name Admitted to NICU Weight (g) Sex Living Outcome Pediatric Complications Fetus ID Race Codes Race Delivery Type 3345.24 1 F Full Term [address] Date Initial Exam Date Initial Exam Provider Initial Ultrasound Date Last Menstrual Period Date Ultra Sound Weeks Gestation [address] Update Ultra Sound Date Fundal Height At Umbil Quickening Date Ultra Sound Latest Weeks Gestation Final Rd Confirmed By Final Rd Confirmed Date Final Rd Date Ultra Sound Latest Days Gestation 0 0 Menstrual History Last Menstrual Date Menses Monthly On Bcp Conception Prior Menses Frequency Hcg Plus Date Menarche Onset Age Delivery Information Delivery Date Delivery Type Labor Anesthesia Weeks Gestation Incision Type Labor Labor Length Hrs Delivered By Post Complications Tubal Sterilization Discharge Date Comments 0 None 40 false Atiya Discharge Information Feeding Method Contraceptive Method Maternal HG B and HCT Levels Ob Episode Information Episode Created Date Number of Fetuses Patient Bloodtype Patient rh Status Prepregnancy Weight lbs Domestic Partner Domestic Partner Phone Father Name Business Transformation Analyst Status 10/26/19 16 1 CLOSED Fetus Data First Name Last Name Admitted to NICU Weight (g) Sex Living Outcome Pediatric Complications Fetus ID Race Codes Race Delivery Type 3515.33 8 F Full Term [address] Initial [address] Date Initial Exam Date Initial Exam Provider Initial Ultrasound Date Last Menstrual Period Date Ultra Sound Weeks Gestation [address] Update Ultra Sound Date Fundal Height At Umbil Quickening Date Ultra Sound Latest Weeks Gestation Final Rd Confirmed By Final Rd Confirmed Date Final Rd Date Ultra Sound Latest Days Gestation 0 0 Menstrual History Last Menstrual Date Menses Monthly On Bcp Conception Prior Menses Frequency Hcg Plus Date Menarche Onset Age Delivery Information Delivery Date Delivery Type Labor Anesthesia Weeks Gestation Incision Type Labor Labor Length Hrs Delivered By Post Complications Tubal Sterilization Discharge Date Comments 8 None 40 false Nochol Discharge Information Feeding Method Contraceptive Method Maternal HG B and HCT Levels Ob Episode Information Episode Created Date Number of Fetuses Patient Bloodtype Patient rh Status Prepregnancy Weight lbs Domestic Partner Domestic Partner Phone Father Name Business Transformation Analyst Status 10/26/19 16 1 CLOSED Fetus Data First Name Last Name Admitted to NICU Weight (g) Sex Living Outcome Pediatric Complications Fetus ID Race Codes Race Delivery Type 3061.74 6 F Full Term [address] Calculation Initial Rd Date Initial Exam Date Initial Exam Provider Initial Ultrasound Date Last Menstrual Period Date Ultra Sound Weeks Gestation [address] Update Ultra Sound Date Fundal Height At Umbil Quickening Date Ultra Sound Latest Weeks Gestation Final Rd Confirmed By Final Rd Confirmed Date Final Rd Date Ultra Sound Latest Days Gestation 0 0 Menstrual History Last Menstrual Date Menses Monthly On Bcp Conception Prior Menses Frequency Hcg Plus Date Menarche Onset Age Delivery Information Delivery Date Delivery Type Labor Anesthesia Weeks Gestation Incision Type Labor Labor Length Hrs Delivered By Post Complications Tubal Sterilization Discharge Date Comments 3 None 40 false Keyanna Discharge Information Feeding Method Contraceptive Method Maternal HG B and HCT Levels
--- OUTSIDE RECORDS SUMMARY | 2024-06-30 03:26 | XMS_ITS | CONTINUITY OF CARE DOCUMENT ---
Author Name inga xiong Address Unknown Organization [facility] Address [address] [place] [address] Phone [phone] Care Team Providers Care Cattle Sprayer Name Role Phone Henry Florence MD Unavailable [phone] SENA DANIEL MD Unavailable [phone] SENA DANIEL MD Unavailable PROBLEMS Condition Status Date Provider Notes Overweight active Henry Florence MD FAMILY HISTORY OF HEART DISEASE active Almaz Florence MD dad subramanian mi Tobacco dependence, continuous active Leon Florence MD BACK PAIN;CHRONIC active Henry Florence MD HTN essential active Henry Florence MD Hyperlipidemia active Henry Florence MD Chest pain-type to be determined active Tanmay Florence MD Cocaine abuse, in remission active Henry swain MD ENCOUNTERS Date Type Provider Location Encounter Diag nosis - In-person encounter Office Visit Henry Florence MD [place] [facility] OverweightFAMILY HISTORY OF HEART DISEASETobacco dependence, continuousBACK PAIN;CHRONICHTN essentialHyperlipidemiaChest pain-type to be determinedCocaine abuse, in remission VITAL SIGNS Date Observation Value Provider Body Mass Index (Ratio) 28.08 kg/m2 Almaz Florence MD blood pressure, diastolic 75 mm[Hg] Ch asttricia Tong blood pressure, systolic 107 mm[Hg] Letty Tong oxygen saturation, oximetry 98 % Subha Tong pulse rate 83 /min Subha Tong respiratory rate E&M 16 /min Perry Tong weight E&M 174 [lb_av] Subha Tong height E&M 66 [in_i] [facility] ALLERGIES No Known Drug Allergies HISTORY OF MEDICATION USE Medication Status Instructions Dates Provider Indications Com ments atorvastatin 40 mg tablet completed Take 1 tablet by mouth at bedtime 1 - 1 Henry Florence MD aspirin 81 mg tablet,delayed release (DR/EC) active TAKE 1 TABLET BY MOUTH EVERY DAY Henry Florence MD omeprazole 20 mg capsule,delayed release(DR/EC) active TAKE 1 CAPSULE BY MOUTH EVERY DAY BEFORE A MEAL Henry Florence MD gabapentin 100 mg capsule active TAKE 1 CAPSULE BY MOUTH THREE TIMES DAILY Henry Florence MD lisinopril-hydroc hlorothiazide 20-12.5 mg tablet active TAKE 1 TABLET BY MOUTH TWICE DAILY Henry Florence MD atorvastatin 40 mg tablet completed - 1 Henry Florence MD Motrin IB 200 mg tablet active Henry Florence MD SOCIAL HISTORY Date Observation Value Provider smoking/tobacco cess ation, patient education and counseling yes Henry Florence MD social history E&M S moking History: P atient currently smokes every day. Henry Florence MD social history reviewed E&M revi ewed - no changes required Henry Florence MD number of years as a smoker 40 a Subha Tong cigarette use yes Subha Tong smoking status Current every day smoker C timothy Tong FAMILY HISTORY Family Member Condition Father Family History of Co ngestive Heart Failure: Mother Family History of Hy pertension: INSURANCE PROVIDERS Payer name Policy type / Coverage type [place] [employer] party ID [employer] insurance company [id number] ADVANCE DIRECTIVES Name Date DISCUSSED - NO DECISION MADE TREATMENT PLAN Date Name Performer [id number],S, Henry keith MD [id number],S, Henry keith MD [id number],B, Henry keith MD [id number],B, Henry keith MD [id number],S, Henry keith MD [id number],S,neg nuc 2020 Henry Florence MD Cardiology Henry Florence MD Cardiology Henry Florence MD Cardiology Henry Florence MD Cardiology Henry Florence MD Cardiology Henry Florence MD Cardiology:neg nuc 2020 Henry swain MD Date Name CT, Coronary Calcium Score Complete Echo HISTORY OF PROCEDURES Procedure Date Procedure Name Provider Procedure Notes S tatus EKG Henry Florence MD complete d
--- OUTSIDE RECORDS SUMMARY | 2024-06-30 03:26 | XMS_ITS | Patient Health Summary ---
Author Organization [facility] Address [address] [place] [address] Care Team Providers Care Foreign Diplomat Name Role Phone Asiya Douglas MD Primary Care Provider [phone] Note from [facility]– [place],non-owned Affiliates and Associated Physician Practices is amultiple site organization consisting of ambulatory clinics and hospital sitesin [place], [place], [place] and [place]. This disclosure is being madepursuant to the Care Everywhere program and may not contain all information available regarding this patient. Last updated 18.[facility] Allergies No known active allergies Medications * Be aware that medications may not be up to date on this document. Alwaysverify current medications with the patient. * lisinopril-hydroCHLOROthiazide (PRINZIDE; ZESTORETIC) 20-12.5 MG tablet Take 1 tablet by mouth 2 times daily * omeprazole (PRILOSEC) 20 MG capsule(Started 04/13/2019) Take 20 mg by mouth once daily * Naproxen Sodium (ALEVE PO) Take 600 mg by mouth 2 times daily * fluticasone propionate (FLONASE) 50 MCG/ACT nasal spray [place] 2 sprays into each nostril every 6 hours as needed Immunizations * HEP A/HEP B(Given 12/21/2008) Social History Tobacco Use Types Packs/Day Years [...] Mass Index 27.37 08/25/2020 10:46 AM CDT Procedures * MAMMO RIGHT DIAGNOSTIC(Performed 08/25/2020) Performed for Breast mass, right * US BREAST RIGHT BIOPSY(Performed 08/25/2020) Performed for Breast mass, right * PATHOLOGY TISSUE(Performed 08/25/2020) Performed for Breast mass, right * US BREAST RIGHT LTD(Performed 08/25/2020) Performed for Breast mass, right * VIRAL CULTURE MISC(Performed 07/02/2012) * CHLAMYDIA TRACHOMATIS MAHAMED(Performed 07/02/2012) * NEISSERIA GONORRHOEAE MAHAMED(Performed 07/02/2012) Results * MAMMO RIGHT DIAGNOSTIC (08/25/2020 2:24 PM CDT) Anatomical Region Laterality Modality Breast Right Mammography 08/25/2020 2:18 PM CDT Addenda Addendum by Oralia Moon MD on 08/27/2020 10:42 AM CDT ORIGINAL REPORT EXAM: ULTRASOUND-GUIDED BIOPSY AND POST BIOPSY DIGITAL MAMMOGRAM RIGHT BREAST x 2 SITES CLINICAL INFORMATION: 1.1 cm hypoechoic mass in the right breast 1:00 region 2 cm from the nipple and 1.1 cm hypoechoic mass in the right breast 1:00 5 cm from the nipple region. COMPARISON: Ultrasound earlier today as well as ultrasound from [facility] 06/07/2020. TECHNIQUE AND FINDINGS: Preprocedure images were reviewed. The procedure and its risks and benefits were discussed with the patient, including, but not limited to, bleeding, infection, allergy, and nondiagnostic specimen. Written and verbal informed consent was obtained and documented. After confirming the correct breast for biopsy, this breast was marked with a marking pen. The patient was then placed in a supine position on the ultrasound table. Prior to the procedure a hospital timeout procedure was performed, including verification of the laterality of the breast for biopsy. Site 1: Ultrasound was performed for location of the lesion. The palpable 1.1 cm hypoechoic mass in the 1 o'clock position, 2 cm from the nipple of the breast was localized with ultrasound guidance. The breast was cleansed with ChloraPrep and draped in a sterile fashion. Local anesthesia was given with 5 cc of 1% Lidocaine with Sodium Bicarbonate within the skin and deeper anesthesia with 15 cc of 1% Lidocaine with Epinephrine and Sodium Bicarbonate. A small skin incision was made with a #11 scalpel blade, and through it a 12 gauge Elevation with an introducer was inserted to the depth of the lesion from a medial approach. 3 biopsy samples were obtained through the lesion. The tissue samples were placed in formalin and sent to pathology for histologic analysis. Of note, after the first sample the mass dissipated and is likely due to a complicated cyst. A heart-shaped tissue marker clip was placed at the biopsy site and a post biopsy sonogram demonstrated no evidence for hematoma about the biopsy site. Hemostasis was achieved. Site 2: Ultrasound was then performed for location of the second lesion for biopsy. The 1.1 cm hypoechoic mass in the 1 o'clock position, 5 cm from the nipple of the breast was localized with ultrasound guidance. The breast was cleansed with ChloraPrep and draped in a sterile fashion. The same skin incision site was utilized as was site #1 and deeper anesthesia with 6 cc of 1% Lidocaine with Epinephrine and Sodium Bicarbonate. A small skin incision was made with a #11 scalpel blade, and through it a 12 gauge Elevation with an introducer was inserted to the depth of the lesion from a medial approach. 3 biopsy samples were obtained through the lesion. The tissue samples were placed in formalin and sent to pathology for histologic analysis. Of note, after the first sample, the mass dissipated and is likely due to a benign complex cyst. A Senomark Ultra ultrasuond-enhanced coil-shaped tissue marker clip was placed at the biopsy site and a post biopsy sonogram demonstrated no evidence for hematoma about the biopsy site. Hemostasis was achieved and the small wounds were closed with Exofin. Estimated blood loss: minimal Mammogram: A two-view right mammogram with CC and true lateral projections was obtained to check clip placement. Breast Composition: Category C: Heterogeneously dense, which may obscure small masses. Biopsy site #1: The heart shaped clip is in good position at the biopsy site. Biopsy site #2: The coil-shaped clip is in good position at the biopsy site. Assessment: Post procedure mammogram for marker placement The patient tolerated the procedures well, with no immediate post biopsy complications. The patient was given verbal, as well as written post-procedure instructions and was released from the department in good condition. The attending physician, Oralia Moon MD, performed the entire procedure. CONCLUSION: 1. Technically successful, uncomplicated ultrasound-guided core biopsy performed of the right breast times 2. 2. Biopsy site #1 was performed of a 1.1 cm mass in the 1 o'clock position, 2 cm from the nipple of the right breast. Heart-shaped tissue marker clip placed at the biopsy site. Of note, mass dissipated after first biopsy sample and is likely due to a complicated cyst. 3. Biopsy site #2 was performed of a 1.1 cm mass in the 1 o'clock position, 5 cm from the nipple of the the right breast. Coil-shaped tissue marker clip placed at the biopsy site. Of note, mass dissipates after the first sample and is likely due to a complicated cyst. 4. Pathology results are pending. Patient will receive her results from and follow up with Dr. Bauman. An addendum to this report will be rendered when the pathology results are made available. This report was electronically signed by ORALIA MOON M.D. on 08/25/2020 2:27 PM . ADDENDUM #1 ADDENDUM: PATHOLOGY RESULTS x [address] Jaqui Link Report from biopsy site #1/A in the 1:00 region, 2 cm from the nipple of the right breast demonstrates benign breast tissue with focal ductal ectasia or pseudocyst, fibrosis, scattered histiocytes and chronic inflammation, apocrine metaplasia, and microcalcifications. There is no atypia or malignancy. This is a benign lesion The pathology report is concordant with the imaging findings. Report from biopsy site #2/B in the 1:00 region, 5 cm from the nipple of the right breast demonstrates benign breast parenchyma with focal fibrocystic changes, microcalcifications associated with benign ducts. There is no atypia or malignancy. This is a benign lesion The pathology report is concordant with the imaging findings. Recommend resume yearly screening mammography, pending no interval breast concerns, and screening mammogram is due in June 2021. Dr. Bauman will notify the patient of the biopsy findings and recommendations. Results were also provided to her referring physician via [employer]. This report was electronically signed by ORALIA MOON M.D. on 08/27/2020 10:39 AM . Narrative 08/25/2020 2:27 PM CDT EXAM: ULTRASOUND-GUIDED BIOPSY AND POST BIOPSY DIGITAL MAMMOGRAM RIGHT BREAST x 2 SITES CLINICAL INFORMATION: 1.1 cm hypoechoic mass in the right breast 1:00 region 2 cm from the nipple and 1.1 cm hypoechoic mass in the right breast 1:00 5 cm from the nipple region. COMPARISON: Ultrasound earlier today as well as ultrasound from [facility] 06/07/2020. TECHNIQUE AND FINDINGS: Preprocedure images were reviewed. The procedure and its risks and benefits were discussed with the patient, including, but not limited to, bleeding, infection, allergy, and nondiagnostic specimen. Written and verbal informed consent was obtained and documented. After confirming the correct breast for biopsy, this breast was marked with a marking pen. The patient was then placed in a supine position on the ultrasound table. Prior to the procedure a hospital timeout procedure was performed, including verification of the laterality of the breast for biopsy. Site 1: Ultrasound was performed for location of the lesion. The palpable 1.1 cm hypoechoic mass in the 1 o'clock position, 2 cm from the nipple of the breast was localized with ultrasound guidance. The breast was cleansed with ChloraPrep and draped in a sterile fashion. Local anesthesia was given with 5 cc of 1% Lidocaine with Sodium Bicarbonate within the skin and deeper anesthesia with 15 cc of 1% Lidocaine with Epinephrine and Sodium Bicarbonate. A small skin incision was made with a #11 scalpel blade, and through it a 12 gauge Elevation with an introducer was inserted to the depth of the lesion from a medial approach. 3 biopsy samples were obtained through the lesion. The tissue samples were placed in formalin and sent to pathology for histologic analysis. Of note, after the first sample the mass dissipated and is likely due to a complicated cyst. A heart-shaped tissue marker clip was placed at the biopsy site and a post biopsy sonogram demonstrated no evidence for hematoma about the biopsy site. Hemostasis was achieved. Site 2: Ultrasound was then performed for location of the second lesion for biopsy. The 1.1 cm hypoechoic mass in the 1 o'clock position, 5 cm from the nipple of the breast was localized with ultrasound guidance. The breast was cleansed with ChloraPrep and draped in a sterile fashion. The same skin incision site was utilized as was site #1 and deeper anesthesia with 6 cc of 1% Lidocaine with Epinephrine and Sodium Bicarbonate. A small skin incision was made with a #11 scalpel blade, and through it a 12 gauge Elevation with an introducer was inserted to the depth of the lesion from a medial approach. 3 biopsy samples were obtained through the lesion. The tissue samples were placed in formalin and sent to pathology for histologic analysis. Of note, after the first sample, the mass dissipated and is likely due to a benign complex cyst. A Senomark Ultra ultrasuond-enhanced coil-shaped tissue marker clip was placed at the biopsy site and a post biopsy sonogram demonstrated no evidence for hematoma about the biopsy site. Hemostasis was achieved and the small wounds were closed with Exofin. Estimated blood loss: minimal Mammogram: A two-view right mammogram with CC and true lateral projections was obtained to check clip placement. Breast Composition: Category C: Heterogeneously dense, which may obscure small masses. Biopsy site #1: The heart shaped clip is in good position at the biopsy site. Biopsy site #2: The coil-shaped clip is in good position at the biopsy site. Assessment: Post procedure mammogram for marker placement The patient tolerated the procedures well, with no immediate post biopsy complications. The patient was given verbal, as well as written post-procedure instructions and was released from the department in good condition. The attending physician, Oralia Moon MD, performed the entire procedure. CONCLUSION: 1. Technically successful, uncomplicated ultrasound-guided core biopsy performed of the right breast times 2. 2. Biopsy site #1 was performed of a 1.1 cm mass in the 1 o'clock position, 2 cm from the nipple of the right breast. Heart-shaped tissue marker clip placed at the biopsy site. Of note, mass dissipated after first biopsy sample and is likely due to a complicated cyst. 3. Biopsy site #2 was performed of a 1.1 cm mass in the 1 o'clock position, 5 cm from the nipple of the the right breast. Coil-shaped tissue marker clip placed at the biopsy site. Of note, mass dissipates after the first sample and is likely due to a complicated cyst. 4. Pathology results are pending. Patient will receive her results from and follow up with Dr. Bauman. An addendum to this report will be rendered when the pathology results are made available. This report was electronically signed by ORALIA MOON M.D. on 08/25/2020 2:27 PM . Olga Bauman MD MAMMO ORDERABLES * US BREAST RIGHT BIOPSY (08/25/2020 2:20 PM CDT) Anatomical Region Laterality Modality Breast Right Mammography 08/25/2020 2:18 PM CDT Addenda Addendum by Oralia Moon MD on 08/27/2020 10:42 AM CDT ORIGINAL REPORT EXAM: ULTRASOUND-GUIDED BIOPSY AND POST BIOPSY DIGITAL MAMMOGRAM RIGHT BREAST x 2 SITES CLINICAL INFORMATION: 1.1 cm hypoechoic mass in the right breast 1:00 region 2 cm from the nipple and 1.1 cm hypoechoic mass in the right breast 1:00 5 cm from the nipple region. COMPARISON: Ultrasound earlier today as well as ultrasound from [facility] 06/07/2020. TECHNIQUE AND FINDINGS: Preprocedure images were reviewed. The procedure and its risks and benefits were discussed with the patient, including, but not limited to, bleeding, infection, allergy, and nondiagnostic specimen. Written and verbal informed consent was obtained and documented. After confirming the correct breast for biopsy, this breast was marked with a marking pen. The patient was then placed in a supine position on the ultrasound table. Prior to the procedure a hospital timeout procedure was performed, including verification of the laterality of the breast for biopsy. Site 1: Ultrasound was performed for location of the lesion. The palpable 1.1 cm hypoechoic mass in the 1 o'clock position, 2 cm from the nipple of the breast was localized with ultrasound guidance. The breast was cleansed with ChloraPrep and draped in a sterile fashion. Local anesthesia was given with 5 cc of 1% Lidocaine with Sodium Bicarbonate within the skin and deeper anesthesia with 15 cc of 1% Lidocaine with Epinephrine and Sodium Bicarbonate. A small skin incision was made with a #11 scalpel blade, and through it a 12 gauge Elevation with an introducer was inserted to the depth of the lesion from a medial approach. 3 biopsy samples were obtained through the lesion. The tissue samples were placed in formalin and sent to pathology for histologic analysis. Of note, after the first sample the mass dissipated and is likely due to a complicated cyst. A heart-shaped tissue marker clip was placed at the biopsy site and a post biopsy sonogram demonstrated no evidence for hematoma about the biopsy site. Hemostasis was achieved. Site 2: Ultrasound was then performed for location of the second lesion for biopsy. The 1.1 cm hypoechoic mass in the 1 o'clock position, 5 cm from the nipple of the breast was localized with ultrasound guidance. The breast was cleansed with ChloraPrep and draped in a sterile fashion. The same skin incision site was utilized as was site #1 and deeper anesthesia with 6 cc of 1% Lidocaine with Epinephrine and Sodium Bicarbonate. A small skin incision was made with a #11 scalpel blade, and through it a 12 gauge Elevation with an introducer was inserted to the depth of the lesion from a medial approach. 3 biopsy samples were obtained through the lesion. The tissue samples were placed in formalin and sent to pathology for histologic analysis. Of note, after the first sample, the mass dissipated and is likely due to a benign complex cyst. A Senomark Ultra ultrasuond-enhanced coil-shaped tissue marker clip was placed at the biopsy site and a post biopsy sonogram demonstrated no evidence for hematoma about the biopsy site. Hemostasis was achieved and the small wounds were closed with Exofin. Estimated blood loss: minimal Mammogram: A two-view right mammogram with CC and true lateral projections was obtained to check clip placement. Breast Composition: Category C: Heterogeneously dense, which may obscure small masses. Biopsy site #1: The heart shaped clip is in good position at the biopsy site. Biopsy site #2: The coil-shaped clip is in good position at the biopsy site. Assessment: Post procedure mammogram for marker placement The patient tolerated the procedures well, with no immediate post biopsy complications. The patient was given verbal, as well as written post-procedure instructions and was released from the department in good condition. The attending physician, Oralia Moon MD, performed the entire procedure. CONCLUSION: 1. Technically successful, uncomplicated ultrasound-guided core biopsy performed of the right breast times 2. 2. Biopsy site #1 was performed of a 1.1 cm mass in the 1 o'clock position, 2 cm from the nipple of the right breast. Heart-shaped tissue marker clip placed at the biopsy site. Of note, mass dissipated after first biopsy sample and is likely due to a complicated cyst. 3. Biopsy site #2 was performed of a 1.1 cm mass in the 1 o'clock position, 5 cm from the nipple of the the right breast. Coil-shaped tissue marker clip placed at the biopsy site. Of note, mass dissipates after the first sample and is likely due to a complicated cyst. 4. Pathology results are pending. Patient will receive her results from and follow up with Dr. Bauman. An addendum to this report will be rendered when the pathology results are made available. This report was electronically signed by ORALIA MOON M.D. on 08/25/2020 2:27 PM . ADDENDUM #1 ADDENDUM: PATHOLOGY RESULTS x [address] Jaqui Link Report from biopsy site #1/A in the 1:00 region, 2 cm from the nipple of the right breast demonstrates benign breast tissue with focal ductal ectasia or pseudocyst, fibrosis, scattered histiocytes and chronic inflammation, apocrine metaplasia, and microcalcifications. There is no atypia or malignancy. This is a benign lesion The pathology report is concordant with the imaging findings. Report from biopsy site #2/B in the 1:00 region, 5 cm from the nipple of the right breast demonstrates benign breast parenchyma with focal fibrocystic changes, microcalcifications associated with benign ducts. There is no atypia or malignancy. This is a benign lesion The pathology report is concordant with the imaging findings. Recommend resume yearly screening mammography, pending no interval breast concerns, and screening mammogram is due in June 2021. Dr. Bauman will notify the patient of the biopsy findings and recommendations. Results were also provided to her referring physician via [employer]. This report was electronically signed by ORALIA MOON M.D. on 08/27/2020 10:39 AM . Narrative 08/25/2020 2:27 PM CDT EXAM: ULTRASOUND-GUIDED BIOPSY AND POST BIOPSY DIGITAL MAMMOGRAM RIGHT BREAST x 2 SITES CLINICAL INFORMATION: 1.1 cm hypoechoic mass in the right breast 1:00 region 2 cm from the nipple and 1.1 cm hypoechoic mass in the right breast 1:00 5 cm from the nipple region. COMPARISON: Ultrasound earlier today as well as ultrasound from [facility] 06/07/2020. TECHNIQUE AND FINDINGS: Preprocedure images were reviewed. The procedure and its risks and benefits were discussed with the patient, including, but not limited to, bleeding, infection, allergy, and nondiagnostic specimen. Written and verbal informed consent was obtained and documented. After confirming the correct breast for biopsy, this breast was marked with a marking pen. The patient was then placed in a supine position on the ultrasound table. Prior to the procedure a hospital timeout procedure was performed, including verification of the laterality of the breast for biopsy. Site 1: Ultrasound was performed for location of the lesion. The palpable 1.1 cm hypoechoic mass in the 1 o'clock position, 2 cm from the nipple of the breast was localized with ultrasound guidance. The breast was cleansed with ChloraPrep and draped in a sterile fashion. Local anesthesia was given with 5 cc of 1% Lidocaine with Sodium Bicarbonate within the skin and deeper anesthesia with 15 cc of 1% Lidocaine with Epinephrine and Sodium Bicarbonate. A small skin incision was made with a #11 scalpel blade, and through it a 12 gauge Elevation with an introducer was inserted to the depth of the lesion from a medial approach. 3 biopsy samples were obtained through the lesion. The tissue samples were placed in formalin and sent to pathology for histologic analysis. Of note, after the first sample the mass dissipated and is likely due to a complicated cyst. A heart-shaped tissue marker clip was placed at the biopsy site and a post biopsy sonogram demonstrated no evidence for hematoma about the biopsy site. Hemostasis was achieved. Site 2: Ultrasound was then performed for location of the second lesion for biopsy. The 1.1 cm hypoechoic mass in the 1 o'clock position, 5 cm from the nipple of the breast was localized with ultrasound guidance. The breast was cleansed with ChloraPrep and draped in a sterile fashion. The same skin incision site was utilized as was site #1 and deeper anesthesia with 6 cc of 1% Lidocaine with Epinephrine and Sodium Bicarbonate. A small skin incision was made with a #11 scalpel blade, and through it a 12 gauge Elevation with an introducer was inserted to the depth of the lesion from a medial approach. 3 biopsy samples were obtained through the lesion. The tissue samples were placed in formalin and sent to pathology for histologic analysis. Of note, after the first sample, the mass dissipated and is likely due to a benign complex cyst. A Senomark Ultra ultrasuond-enhanced coil-shaped tissue marker clip was placed at the biopsy site and a post biopsy sonogram demonstrated no evidence for hematoma about the biopsy site. Hemostasis was achieved and the small wounds were closed with Exofin. Estimated blood loss: minimal Mammogram: A two-view right mammogram with CC and true lateral projections was obtained to check clip placement. Breast Composition: Category C: Heterogeneously dense, which may obscure small masses. Biopsy site #1: The heart shaped clip is in good position at the biopsy site. Biopsy site #2: The coil-shaped clip is in good position at the biopsy site. Assessment: Post procedure mammogram for marker placement The patient tolerated the procedures well, with no immediate post biopsy complications. The patient was given verbal, as well as written post-procedure instructions and was released from the department in good condition. The attending physician, Oralia Moon MD, performed the entire procedure. CONCLUSION: 1. Technically successful, uncomplicated ultrasound-guided core biopsy performed of the right breast times 2. 2. Biopsy site #1 was performed of a 1.1 cm mass in the 1 o'clock position, 2 cm from the nipple of the right breast. Heart-shaped tissue marker clip placed at the biopsy site. Of note, mass dissipated after first biopsy sample and is likely due to a complicated cyst. 3. Biopsy site #2 was performed of a 1.1 cm mass in the 1 o'clock position, 5 cm from the nipple of the the right breast. Coil-shaped tissue marker clip placed at the biopsy site. Of note, mass dissipates after the first sample and is likely due to a complicated cyst. 4. Pathology results are pending. Patient will receive her results from and follow up with Dr. Bauman. An addendum to this report will be rendered when the pathology results are made available. This report was electronically signed by ORALIA MOON M.D. on 08/25/2020 2:27 PM . Olga Bauman MD ORDERABLES * PATHOLOGY TISSUE (08/25/2020 1:35 PM CDT) Case Report Surgical Pathology Report Case: [id number] Authorizing Provider: Olga Bauman MD Collected: 08/25/2020 01:35 PM Ordering Location: [facility] BREAST Received: 08/25/2020 03:14 PM CENTER Pathologist: Jaqui Link MD Specimens: A) - Breast, Right, 1.1 cm mass, Rt breast 1:00 2 cmfn. got smaller and probable cyst B) - Breast, Right, 1.1 cm mass, Rt breast 1:00 5 cmfn. got smaller and probable cyst 08/27/2020 10:02 AM [facility] Final Diagnosis Breast, right, 1.1 cm mass , biopsy (A): - Benign breast parenchyma with focal duct ectasia or pseudocyst, with fibrosis, scattered histiocytic and chronic inflammation, apocrine metaplasia, and microcalcification associated with benign ducts - No evidence of atypia or malignancy Breast, right, 1.1 cm mass , biopsy (B): - Benign breast parenchyma with focal fibrocystic changes - Microcalcification associated with benign ducts - No evidence of atypia or malignancy 08/27/2020 10:02 AM [facility] Microscopic Description and Comment Microscopic examination substantiates the final diagnosis. There is no evidence of atypia or malignancy. 08/27/2020 10:02 AM [facility] Clinical History The patient is a 54-year-old woman with 1.1 cm mass in right breast. 08/27/2020 10:02 AM [facility] Gross Description The requisition and specimen(s) are identified with the patient's name, Magda Napier Kb. Received in formalin, specimen A, Rt. breast 2 cm FN 1:00 are multiple fragments of pink yellow-hoffman fibrofatty tissue cores, 0.2-1.5 cm in length and 0.2-0.3 cm in diameter. Entirely submitted as follows: X3-kgzb-zgkievjm fragments, A2-tissue in capsule. Processing times for specimen A are as follows: Time of excision: 08/25/2020 at 0135 Time in formalin: 08/25/2020 at 0140 Total cold ischemia time: 5 minutes Total formalin fixation time: 5 hours 40 minutes AR Received in formalin, specimen B, Rt. 1:00 5 cm FN are multiple cores of fibrofatty tissue, 0.2-1.1 cm in length and 0.2-0.7 cm in diameter. Entirely submitted as follows: A2-oxwt-ibaknmhj fragments, B2-tissue in capsule. Processing time for specimen B are as follows: Time of excision: 08/25/2020 at 0145 Time in formalin: 08/25/2020 at 0150 Total cold ischemia time: 5 minutes Total formalin fixation time: 5 hours 30 minutes AR LJ 08/27/2020 10:02 AM [facility] Disclaimer The performance characteristics of all immunohistochemical and indirect immunofluorescence stains (if any) cited in this report were determined by the Histopathology Laboratory of [facility]. Some of these tests were developed by our own laboratory and have not been cleared or approved by the US Food and Drug Administration. The FDA does not require this test to go through premarket FDA review. These tests are used for clinical purposes. They should not be regarded as investigational or for research. This laboratory is certified under the Clinical Laboratory Improvement Amendments (CLIA) as qualified to perform high complexity clinical laboratory testing. This case has been personally reviewed and interpreted by the attending (teaching) pathologist. 08/27/2020 10:02 AM T [facility] PATH[facility] Embedded Images 08/27/2020 10:02 AM [facility] Pathology/Cytology (Breast, Right) 08/25/2020 1:35 PM CDT 08/25/2020 3:14 PM CDT Miscellaneous samples (specimen) (Breast, Right) 08/25/2020 1:45 PM CDT 08/25/2020 3:14 PM CDT Olga Bauman MD LAB - PATHOLOGY/CYT OLOGY ORDERABLES [facility] [address] [facility] [place] [address], [facility] [phone] * (ABNORMAL) US BREAST RIGHT LTD (08/25/2020 1:27 PM CDT) Anatomical Region Laterality Modality Breast Right Mammography 08/25/2020 2:14 PM CDT Impressions 08/25/2020 2:18 PM CDT IMPRESSION: 1. A 1.1 cm hypoechoic mass in the right breast 1:00 region, 2 cm from the nipple is at a low-level suspicion for malignancy and corresponds with patient's palpable lump. 2. A oval 1.1 cm hypoechoic mass in the right breast 1:00 region 5 cm from the nipple is at a low-level of suspicion for malignancy. RECOMMENDATION: Ultrasound core biopsy of the right breast x2 is recommended. I discussed the examination findings and recommendations with the patient at the time of her examination. Patient is scheduled for the biopsy today. FINAL BI-RADS CATEGORY 4: SUSPICIOUS (CATEGORY 4A: LOW SUSPICION FOR MALIGNANCY) This report was electronically signed by ORALIA MOON M.D. on 08/25/2020 2:18 PM . Narrative 08/25/2020 2:18 PM CDT EXAMINATION: LIMITED RIGHT BREAST ULTRASOUND DATE OF EXAM: 08/25/2020 1:27 PM HISTORY: This is a 54-year-old female with palpable lump in the right breast. Outside breast ultrasound from [facility] demonstrates a 1.1 cm hypoechoic mass in the right breast 1:00 subareolar region as well as a 1.2 cm hypoechoic mass in the right breast 2:00 region, 4 cm from the nipple. COMPARISON: Prior ultrasound from [facility] 06/07/2020. FINDINGS: Limited ultrasound performed of the right breast. Ultrasound of the 12-1 o'clock region as well as the axilla was performed. I also scanned the patient. At 1:00, 2 cm from the nipple and in the vicinity of a palpable lump is a rounded well-circumscribed 1.1 x 1.1 x 1.0 cm hypoechoic mass. There are low level internal echoes. No blood flow noted to this. In the 1:00 region, 5 cm from the nipple is an oval parallel hypoechoic mass with circumscribed margins measuring 1.1 x 0.4 x 0.7 cm in size. No blood flow was noted to this. These 2 masses are 2.4 centers apart from one another. There are no enlarged right axillary lymph nodes. Olga Bauman MD US ORDERABLES * NEISSERIA GONORRHOEAE MAHAMED (07/02/2012 7:00 PM [facility]) Neisseria gonorrhoeae MAHAMED () [facility] Comment: Specimen: Swab Reference: [id number] Test: Nucleic Acid Amplification/Detection of Neisseria Gonorrhoeae Interpretation: Neisseria gonorrhoeae: Not Detected Reference Range: Not Detected Comment: This analysis was performed by an [place] FDA approved test methodology (Gen-Probe Aptima 2). Test performed at [facility], [address] [place] [address] This case has been personally reviewed and interpreted by the attending (teaching) pathologist. Final Diagnosis performed by Dao Sepulveda MD, PhD. Electronically signed 07/04/2012 ENTIRE VAGINA / Unknown 07/02/2012 7:00 PM [facility] 07/02/2012 7:23 PM [facility] - MICROBIOLOGY O RDERABLES Performing Organization Address City/State/[facility] Co de Phone Number [address] [phone] * CHLAMYDIA TRACHOMATIS MAHAMED (07/02/2012 7:00 PM [facility] HAND) Chlamydia trachomatis MAHAMED () [facility] Comment: Specimen: Swab Reference: [id number] Test: Nucleic Acid Amplification/Detection of Chlamydia Trachomatis Interpretation: Chlamydia trachomatis: Not Detected Reference Range: Not Detected Comment: This analysis was performed by an [place] FDA approved test methodology (Gen-Probe Aptima 2). Test performed at [facility], [address] [place] [address] This case has been personally reviewed and interpreted by the attending (teaching) pathologist. Final Diagnosis performed by Dao Sepulveda MD, PhD. Electronically signed 07/04/2012 ENTIRE VAGINA / Unknown 07/02/2012 7:00 PM [facility] 07/02/2012 7:23 PM [facility] - [place] [address], [facility] [phone] * VIRAL CULTURE MISC (07/02/2012 7:00 PM [facility]) Viral Culture General No virus isolated. . [facility] Comment: Performed at: [address] [id number] Backhaul Driver: Jesus Zapien MD, Phone: [phone] Preliminary Report: No virus isolated at 4 days. Next report to follow after 7 days. Performed at: [address] [id number] Backhaul Driver: Jesus Zapien MD, Phone: [phone] Preliminary Report: No virus isolated at 24 hours. Next report to follow after 4 days. Performed at: [address] [id number] Backhaul Driver: Jesus Zapien MD, Phone: [phone] !! EDITED OR CORRECTED RESULTS !! RESULT PREVIOUSLY REPORTED : Preliminary Report: No virus isolated at 24 hours. Next report to follow after 4 days. Performed at: [address] [id number] Backhaul Driver: Jesus Zapien MD, Phone: [phone] NOTIFIED [] AT 1322 ON 07/08/12 !! EDITED OR CORRECTED RESULTS !! RESULT PREVIOUSLY REPORTED : Preliminary Report: No virus isolated at 4 days. Next report to follow after 7 days. Performed at: [address] [id number] Backhaul Driver: Jesus Zapien MD, Phone: [phone] Preliminary Report: No virus isolated at 24 hours. Next report to follow after 4 days. Performed at: [address] [id number] Backhaul Driver: Jesus Zapien MD, Phone: [phone] !! EDITED OR CORRECTED RESULTS !! RESULT PREVIOUSLY REPORTED : Preliminary Report: No virus isolated at 24 hours. Next report to follow after 4 days. Performed at: [address] [id number] Backhaul Driver: Jesus Zapien MD, Phone: [phone] NOTIFIED [] AT 1322 ON 07/08/12 NOTIFIED [] AT 0825 ON 07/11/12 Exudate specimen from wound (specimen) (Unspecified) 07/02/2012 7:00 PM [facility] 07/02/2012 7:48 PM [facility] Narrative [facility] - 07/11/2012 8:25 AM KENN[facility] HAND Specimen Type->Wound drainage Historical Provider MD LAB - MICROBIOLOG Y ORDERABLES [facility] [address] [place] [address], [facility] [phone] Care Teams Foreign Diplomat Relationship Specialty Start Date End Date Asiya Douglas MD [address] [place] [phone] PCP - General 05/04/19
--- OUTSIDE RECORDS SUMMARY | 2024-06-30 03:26 | XMS_ITS | Clinical Summary ---
Author Organization [facility] Address [address] [place], [place] [id number] Care Team Providers Care Wholesale Parts Salesperson Name Role Phone Unavailable Primary Care Provider Unavailabl e Social History Tobacco Use Types Packs/Day Years Used Date Smoking Tobacco: Never Assessed Comments Unknown Sex and Gender Information Value Date Recorded Sex Assigned at Not on file Legal Sex Female 5:48 PM MANAGER SIMULATION Gender Identity Not on file Sexual Orientation Not on file Plan of Treatment Health Maintenance Due Date Last Done Comments Cervical Cancer Screening Pa p Smear (Age 30 to 64) Every 3 Years 1966 Colorectal Cancer Screening Colonoscopy (10 Years) 1966 Annual Physical 1969 Hepatitis C 1984 DTaP, Tdap and Td Vaccines ( 1 - Tdap) 1985 Hepatitis B Vaccines (1 of 3 - 19+ 3-dose series) 1985 Cervical Cancer Screening Pa p with HPV Testing (Age 30 to 64) Every 5 Years 1996 Cervical Cancer Screening with HPV 1996 Mammogram Screening 2006 Zoster Vaccines (1 of 2) 2016 COVID-19 Vaccine (2023-2 5 season) 2024 Influenza Adult (#1) 2024 Meningococcal B Vaccine Aged Out No l onger eligible based on patient's age to complete this topic Meningococcal Vaccine Aged Out No debby saroj eligible based on patient's age to complete this topic Pneumococcal Vaccine: Pediat rics (0 to 5 Years) and At-Risk Patients (6 to 64 Years) Aged Out No longer eligible b ased on patient's age to complete this topic RSV Immunizations Under 20 Months Aged Out No longer eligible based on patient's age to complete this topic Insurance [facility]
--- OUTSIDE RECORDS SUMMARY | 2024-06-30 03:26 | XMS_ITS | Continuity of Care Document ---
Author Organization [facility] Address [address] [place] [address] Phone Care Team Providers Care Adjunct Professor Name Role Phone Unavailable Unavailable Unavailable Allergies, Adverse Reactions, Alerts Substance Reaction Status Criticality No Known allergies Procedures Procedure Date COLLECTION OF VENOUS BLOOD BY VENIPUNCTU RE SKIN TEST; TUBERCULOSIS, INTRADERMAL Jul OFFICE OUTPT EST 25 MIN OFFICE OUTPT NEW 20 MINUTES HEP A/HEP B VACC, ADULT IM THER PROPH/DX NJX SUBQ/IM Advance Directives Directive Yes / No Effective Date File Name No Information Encounters Encounter Description Practice Location Reason(s) For Visit Diagnoses Date Provider Providers Copied on Encounter [email or web address], [address], [place], [place], [id number] , [place] tel: [phone] [facility] No Information 2 No Information [facility], [address], [place], [place], [address] , [place] tel: [phone] [facility] Unspecified disorder of thyroid 2 No Information [facility], [address], [place], [place], [address] , [place] tel: [phone] [facility] weight loss (chief complaint) Loss of weightScreening examination for pulmonary tuberculosisOther specified diseases of hair and hair follicles 2 No Information OFFICE OUTPT EST 25 MIN [facility], [address], [place], [place], [address] , [place] tel: [phone] [facility] complete physical (chief complaint) syncope (chief complaint) right foot (chief complaint) Other malaise and fatigueRoutine gynecological examinationOther screening mammogramPlantar Wart; Ver[facility] Plant[facility] 1 No Information OFFICE OUTPT NEW 20 MINUTES [facility], [address], [place], [place], [address] , [place] tel:[phone] [facility] Hepatitis A (chief complaint) Need for prophylactic vaccination and inoculation against viralhepatitis 9 No Information Family History Family Member Type Diagnosis Age At Onset Problem (finding) Family history of hyper tension Problem (finding) Family history of coronary arteriosclerosis Problem (finding) Family history of strok e Immunizations Vaccine Date Status Comments Twinrix administered Note: GIVEN #1 TWINRIX A/B INJECTION 1ML IM IN LEFT DELTOID [facility] [phone] VIS DATE 06/19/08 ; Source: New Immunization Record Payers Payer name Insurance type Covered republican ID Authoriza tion(s) No Information Social History Type Description Quantity Date Captured Comments Sex Female Smoking Status No Information Chief Complaint And Reason For Visit No Information Reason For Referral Reason For Referral No Information Plan Of Treatment Date Type Action Status Goal AST. Due on due Goal Urinalysis. Due on 12 due Goal BMP fasting. Due on 012 due Goal ALT. Due on due Goal Lipid Panel. Due on 011 due Goal PAP. Due on due Goal TSH. Due on due Referral Referred To: [facility] Ordered: Referral: [facility]. Radiology [facility]. Diagnostic testing. ordered Referral Referred To: [facility] Mammogram Fernando [phone] Ordered: Referral: [facility] Mamm[facility] Fernando. Radiology. Diagnostic testing. Appointment date/timeframe: 11/16/2011 ordered Future Order: Lab Order HEMOGLOB IN A1c ([id number]), Appointment on: , Sent on: Sent Future Order: Lab Order HIV AB, HIV 1/2, EIA, WITH REFLEXES (), Appointment on: , Sent on: Sent Future Order: Lab Order LIPID PA DEBORAH ([id number]), Appointment on: , Sent on: Sent Future Order: Lab Order HEPATITI S C ANTIBODY ([id number]), Appointment on: , Sent on: Sent Future Order: Lab Order CBC (H/H , RBC, INDICES, WBC, PLT) ([id number]), Appointment on: , Sent on: Sent Future Order: Lab Order TSH, 3RD GENERATION ([id number]), Appointment on: , Sent on: Sent Future Order: Lab Order RPR (DX) W/REFL TITER AND CONFIRMATORY TESTING ([id number]), Appointment on: , Sent on: Sent Future Order: Lab Order HEPATITI S B CORE AB TOTAL W/REFL IGM ([id number]), Appointment on: , Sent on: Sent Future Order: Lab Order COMPREHE NSIVE METABOLIC PANEL W/EGFR ([id number]), Appointment on: , Sent on: Sent History Of Present Illness Encounter Date Complaint History Of Prese nt Illness No Information Functional Status Date Functional Assessmen t No Information Instructions Date Instruction Additional Infor mation No Information Assessments Type Assessment Date No Information Patient Care Teams Name Effective Dates (start - stop) Status Members No Information
--- OUTSIDE RECORDS SUMMARY | 2024-06-30 03:26 | XMS_ITS | Referral Summary ---
Author Organization [facility] Address [address] [place] [address] Care Team Providers Care Shift Manager Name Role Phone Asiya Douglas MD Primary Care Provider + [phone] Source Comments [facility],non-owned Affiliates and Associated Physician Practices is amultiple site organization consisting of ambulatory clinics and hospital sitesin [place], [place], [place] and [place]. This disclosure is being madepursuant to the Care Everywhere program and may not contain all information available regarding this patient. Last updated 18.[facility] Lucky Pai Allergies No known active allergies Medications * [...] fluticasone propionate (FLONASE) 50 MCG/ACT nasal spray Laura 2 sprays into each nostril every 6 hours as needed Active Immunizations Name Administration Dates Next Due HEP A/HEP B 12/21/2008 Social History Tobacco Use Types Packs/Day Years [...] 08/25/2020 10:46 AM CDT Plan of Treatment Not on file Care Teams Shift Manager Relationship Specialty Start Date End Date Asiya Douglas MD [address] [place] [phone] PCP - General 05/04/19
[2024-06-30 04:23] LABS: Influenza A QL RT-PCR Positive (Negative); Influenza B QL RT-PCR Negative (Negative); RSV RNA, RT-PCR Negative (Negative); SARS-CoV-2 RNA PCR Negative (Negative)
[2024-06-30 06:45] VITALS: O2SAT 100
[2024-06-30 06:50] VITALS: BP 137/83; PULSE 68; RESP 15; O2SAT 100
--- NOTE | 2024-06-30 06:59 | ED.URI ---
HPI - URI/Sore Throat General Chief Complaint: Upper Respiratory Infection Stated Complaint: eyeballs face throat nose ears Time Seen by Provider: 06/30/24 06:58 History of Present Illness HPI Narrative: 58-year-old otherwise healthy female presenting to the emergency department with complaints of runny nose, cough, sore throat. Describes significant nasal discharge but has been taking Mucinex around the clock as well as acetaminophen for pain and fever. Patient denies any purulent discharge or foul odor. Denies any sick contacts. Has been having some ongoing diarrhea intermittently. Otherwise is been well hydrated, no nausea or vomiting. No abdominal pain or fever, chills presently. Related Data Allergies Allergy/AdvReac Type Severity Reaction Status Date / Time No Known Allergies Allergy Unverified 06/30/24 03:36 Review of Systems Review of Systems: As reviewed above in HPI [facility] Past Medical History Medical History Hypertension Surgical History Surgical History H/O tubal ligation Exam Narrative: GENERAL: [Well-appearing, well-nourished, and in no acute distress.] HEAD: [Normocephalic, atraumatic.] EYES: [PERRLA and EOMI.] ENT: Rhinorrhea, nares with mucus, no tenderness of palpation of the maxillary sinuses, watery eyes. NECK: Supple. CHEST: [Clear to auscultation. No respiratory distress.] HEART: [Regular rate and rhythm]. No murmur heard. [Normal peripheral pulses.] ABDOMEN: [Soft, nondistended], [nontender], [No rigidity or guarding] EXTREMITIES: Normal range of motion. [No edema.] SKIN: Warm, dry, no rash. NEURO: [No focal deficits]. Alert and oriented [x3.] PSYCH: [Normal mood and affect.] Course Vital Signs Vital signs: Vital Signs Temperature 36.7 C 06/30/24 03:25 Pulse Rate 79 06/30/24 03:25 Respiratory Rate 20 06/30/24 03:25 Blood Pressure 122/82 06/30/24 03:25 Pulse Oximetry 95 06/30/24 03:25 Oxygen Delivery Room Air 06/30/24 03:25 Temperature 36.7 C 06/30/24 03:25 Pulse Rate 68 06/30/24 06:50 Respiratory Rate 15 06/30/24 06:50 Blood Pressure 137/83 06/30/24 06:50 Pulse Oximetry 100 06/30/24 06:50 Oxygen Delivery Room Air 06/30/24 06:45 MDM - URI/Sore Throat MDM Narrative Medical decision making narrative: 58-year-old otherwise healthy female presenting with viral flu-like symptoms for last several days. She is otherwise well-appearing, not any acute distress, normal vital signs. Unremarkable physical examination aside from some congestion, rhinorrhea and watery eyes. She has been taking Mucinex around the clock. Patient had tested positive here for influenza a and was given symptomatic treatment medications including Afrin and pseudoephedrine for her congestion symptoms. She felt improved afterwards and will be sent home with prescriptions for Claritin and recommendations to obtain pseudoephedrine for continued symptoms until she is symptom-free. Patient is safe and stable for discharge home at this time. Differential Diagnosis Differential diagnosis: Likely upper respiratory infection, croup, sinusitis, viral infection, influenza, pharyngitis and other Medical Records Attestation: I reviewed the patient's medical records. Lab Data Attestation: I reviewed the patient's lab results. Labs: Lab Results 06/30/24 Range/Units 03:33 Influenza A (RT-PCR) Positive A (Negative) Influenza B (RT-PCR) Negative (Negative) RSV (RT-PCR) Negative (Negative) SARS-CoV-2 RNA (RT-PCR) Negative (Negative) Discharge Plan Discharge Clinical Impression: Influenza, Upper respiratory infection Patient Disposition: Home, Self-Care Condition: Stable Instructions: Antibiotic Form, Sinusitis (ED), Influenza (ED), Cold Symptoms (ED) Additional Instructions: Your symptoms are likely secondary to influenza A. The Mucinex is also causing have mucus thinning and expectoration which is expected. I would recommend trying [id number]-mqg-wbsslaq Claritin and behind the counter pseudoephedrine for congestion in addition to nasal spray such as Afrin or Flonase. Continue taking Tylenol and ibuprofen for any aches pains or fevers. Symptom duration last up to 2 weeks. Follow-up with your regular doctor. Return with any new or worsening concerns at any time. Patient Language: Polish Prescriptions: New loratadine [Claritin] 10 mg tablet 10 mg PO DAILY PRN (Reason: allergic symptoms) Qty: 20 0RF No Action hydrocodone-acetaminophen 5-325 mg tablet 1 tablet PO Q6H PRN (Reason: pain) Qty: 10 0RF amoxicillin-pot clavulanate 875-125 mg tablet 1 tablet PO Q12H Qty: 20 0RF Follow-up/Referrals: Misael,Asiya Kaminski MD [Primary Care Provider] - Time of Disposition: 07:04
[2024-06-30 07:16] VITALS: BP 137/83; PULSE 70; RESP 15; O2SAT 99
[2024-06-30] MEDS: PSEUDOEPHEDRINE HCL 30 MG TABLET PO (07:18)
[2024-06-30] MEDS: OXYMETAZOLINE HCL 0.05% NAS 15 ML BTL (*BKC) 1 SPRAY NASAL (07:18)
--- OUTSIDE RECORDS SUMMARY | 2024-06-30 07:19 | XMS_ITS | Continuity of Care Document ---
Author Organization [facility] Address [address] [place] [address] Phone Care Team Providers Care Lna Name Role Phone Unavailable Unavailable Unavailable Allergies, [...] Diagnoses Date Provider Providers Copied on Encounter [facility], [address], [place], [place], [id number] , [place] tel: [phone] [facility] [place] No Information 2 No Information [facility], [address], [place], [place], [id number] , [place] tel: [phone] [facility] Unspecified disorder of thyroid 2 No Information [facility], [address], [place], [place], [address] , [place] tel: [phone] [facility] weight loss (chief complaint) Loss of weightScreening examination for pulmonary tuberculosisOther specified diseases of hair and hair follicles 2 No Information OFFICE OUTPT EST 25 MIN [facility], [address], [place], [place], [address] , [place] tel: [phone] [facility] complete physical (chief complaint) syncope (chief complaint) right foot (chief complaint) Other malaise and fatigueRoutine gynecological examinationOther screening mammogramPlantar Wart; Verruca Plantaris 1 No Information OFFICE OUTPT NEW 20 MINUTES Farida priest, [address], [place], [place], [id number] , [place] tel:[phone] [facility] [place] Hepatitis A (chief complaint) Need [...] A/B INJECTION 1ML IM IN LEFT DELTOID [facility] [phone] VIS DATE 06/19/08 ; Source: New Immunization Record Payers Payer name Insurance type Covered republican ID Authoriza tion(s) No Information Social History Type Description Quantity Date Captured Comments Sex Female Smoking Status No Information Chief Complaint And Reason For Visit No Information Reason For Referral Reason For Referral No Information Plan Of Treatment Date Type Action Status Goal TSH. Due on due Goal PAP. Due on due Goal Lipid Panel. Due on 011 due Goal ALT. Due on due Goal BMP fasting. Due on 012 due Goal Urinalysis. Due on 12 due Goal AST. Due on due Referral Referred To: [facility] Ordered: Referral: [facility]. Radiology [facility]. Diagnostic testing. ordered Referral Referred To: [facility] Mammogram Fernando [phone] Ordered: Referral: [facility] Mammogram Fernando. Radiology. Diagnostic testing. Appointment date/timeframe: 11/16/2011 ordered Future Order: Lab Order HEMOGLOB IN A1c ([id number]), Appointment on: , Sent on: Sent Future Order: Lab Order HIV AB, HIV 1/2, EIA, WITH REFLEXES (), Appointment on: , Sent on: Sent Future Order: Lab Order LIPID PA DEBORAH ([id number]), Appointment on: , Sent on: Sent Future Order: Lab Order HEPATITI S C ANTIBODY ([id number]), Appointment on: , Sent on: Sent Future Order: Lab Order CBC (H/H , RBC, INDICES, WBC, PLT) ([id number]), Appointment on: , Sent on: Sent Future Order: Lab Order TSH, 3RD GENERATION ([id number]), Appointment on: , Sent on: Sent Future Order: Lab Order RPR (DX) W/REFL TITER AND CONFIRMATORY TESTING ([id number]), Appointment on: , Sent on: Sent Future Order: Lab Order HEPATITI S B CORE AB TOTAL W/REFL IGM ([id number]), Appointment on: , Sent on: Sent Future Order: Lab Order COMPREHE NSIVE METABOLIC PANEL W/EGFR ([id number]), Appointment on: , Sent on: Sent History Of Present Illness Encounter Date Complaint History Of Prese nt Illness No Information Functional Status Date Functional Assessmen t No Information Instructions Date Instruction Additional Infor mation No Information Assessments Type Assessment Date No Information Patient Care Teams Name Effective Dates (start - stop) Status Members No Information
--- OUTSIDE RECORDS SUMMARY | 2024-06-30 07:20 | XMS_ITS | Clinical Summary ---
Author Organization [facility] Address [address] [place] [address] Care Team Providers Care Counter Pocket Sewer Name Role Phone Asiya Douglas MD Primary Care Provider + [phone] Source Comments [facility],non-owned Affiliates and Associated Physician Practices is amultiple site organization consisting of ambulatory clinics and hospital sitesin [place], [place], [place] and [place]. This disclosure is being madepursuant to the Care Everywhere program and may not contain all information available regarding this patient. Last updated 18.[facility] Allergies No known active allergies Medications * [...] fluticasone propionate (FLONASE) 50 MCG/ACT nasal spray [place] 2 sprays into each nostril every 6 [...] age to complete this topic Care Teams Counter Pocket Sewer Relationship Specialty [place] [address] [place] [phone] PCP - General 05/04/19
--- OUTSIDE RECORDS SUMMARY | 2024-06-30 07:20 | XMS_ITS | Clinical Summary ---
Author Organization [facility] Address [address] [place], [place] [address] Care Team Providers Care Software Licensing Executive Name Role Phone Unavailable Primary Care Provider Unavailabl e Social History Tobacco Use Types Packs/Day Years Used Date Smoking Tobacco: Never Assessed Comments Unknown Sex and Gender Information Value Date Recorded Sex Assigned at Not on file Legal Sex Female 5:48 PM CARE DIRECTOR Gender Identity Not on file Sexual Orientation [...] patient's age to complete this topic Insurance [facility]
--- OUTSIDE RECORDS SUMMARY | 2024-06-30 07:20 | XMS_ITS | Patient Health Summary ---
Author Organization [facility] Address [address] [place] [address] Care Team Providers Care Field Artillery Officer Name Role Phone Asiya Douglas MD Primary Care Provider + [phone] Note from [facility],non-owned Affiliates and Associated Physician Practices is amultiple site organization consisting of ambulatory clinics and hospital sitesin [place], [place], [place] and [place]. This disclosure is being madepursuant to the Care Everywhere program and may not contain all information available regarding this patient. Last updated 18.[facility] Allergies No known active allergies Medications * [...] fluticasone propionate (FLONASE) 50 MCG/ACT nasal spray [place] 2 sprays into each nostril every 6 [...] earlier today as well as ultrasound from [facility] 06/07/2020. TECHNIQUE AND FINDINGS: Preprocedure images were [...] also provided to her referring physician via [employer]. This report was electronically signed by ORALIA [...] earlier today as well as ultrasound from [facility] 06/07/2020. TECHNIQUE AND FINDINGS: Preprocedure images were [...] earlier today as well as ultrasound from [facility] 06/07/2020. TECHNIQUE AND FINDINGS: Preprocedure images were [...] also provided to her referring physician via [employer]. This report was electronically signed by ORLAIA MOON M.D. on 08/27/2020 10:39 AM . [...] earlier today as well as ultrasound from [facility] 06/07/2020. TECHNIQUE AND FINDINGS: Preprocedure images were [...] CDT) Case Report Surgical Pathology Report Case: [id number] Authorizing Provider: Olga Bauman MD Collected: 08/25/2020 01:35 PM Ordering Location: [facility] BREAST Received: 08/25/2020 03:14 PM CENTER Pathologist: Jaqui Link MD Specimens: A) - Breast, Right, 1.1 cm mass, Rt breast 1:00 2 cmfn. got smaller and probable cyst B) - Breast, Right, 1.1 cm mass, Rt breast 1:00 5 cmfn. got smaller and probable cyst 08/27/2020 10:02 AM [facility] Final Diagnosis Breast, right, 1.1 [...] of atypia or malignancy 08/27/2020 10:02 AM [facility] Microscopic Description and Comment Microscopic examination substantiates the final diagnosis. There is no evidence of atypia or malignancy. 08/27/2020 10:02 AM [facility] Clinical History The patient is a 54-year-old woman with 1.1 cm mass in right breast. 08/27/2020 10:02 AM [facility] Gross Description The requisition and specimen(s) are identified with the patient's name, Magda Napier Kb. Received in formalin, specimen A, Rt. breast 2 cm FN 1:00 are multiple fragments of pink yellow-hoffman fibrofatty tissue cores, 0.2-1.5 cm in length and 0.2-0.3 cm in diameter. Entirely submitted as follows: T4-fnwk-dmxhevrr fragments, A2-tissue in capsule. Processing times for [...] cm in diameter. Entirely submitted as follows: U1-jklh-rubqlwgq fragments, B2-tissue in capsule. Processing time for specimen B are as follows: Time of excision: 08/25/2020 at 0145 Time in formalin: 08/25/2020 at 0150 Total cold ischemia time: 5 minutes Total formalin fixation time: 5 hours 30 minutes AR LJ 08/27/2020 10:02 AM [facility] Disclaimer The performance characteristics of all immunohistochemical and indirect immunofluorescence stains (if any) cited in this report were determined by the Histopathology Laboratory of [facility]. Some of these tests were developed [...] attending (teaching) pathologist. 08/27/2020 10:02 AM T [facility] Embedded Images 08/27/2020 10:02 AM [facility] Pathology/Cytology (Breast, Right) 08/25/2020 1:35 PM CDT 08/25/2020 3:14 PM CDT Miscellaneous samples (specimen) (Breast, Right) 08/25/2020 1:45 PM CDT 08/25/2020 3:14 PM CDT Olga Bauman MD LAB - PATHOLOGY/CYT OLOGY ORDERABLES [facility] LAB [address] [place] [address], [facility] [phone] * (ABNORMAL) US BREAST RIGHT LTD (08/25/2020 [...] the right breast. Outside breast ultrasound from [facility] demonstrates a 1.1 cm hypoechoic mass in the right breast 1:00 subareolar region as well as a 1.2 cm hypoechoic mass in the right breast 2:00 region, 4 cm from the nipple. COMPARISON: Prior ultrasound from [facility] 06/07/2020. FINDINGS: Limited ultrasound performed of the [...] * NEISSERIA GONORRHOEAE MAHAMED (07/02/2012 7:00 PM PRODUCTION WELDING SUPERVISOR) Neisseria gonorrhoeae MAHAMED () [facility] Comment: Specimen: Swab Reference: [id number] Test: Nucleic Acid Amplification/Detection of Neisseria Gonorrhoeae Interpretation: Neisseria gonorrhoeae: Not Detected Reference Range: Not Detected Comment: This analysis was performed by an [place] FDA approved test methodology (Gen-Probe Aptima 2). Test performed at [facility], [address] [place] [address] This case has been personally reviewed and interpreted by the attending (teaching) pathologist. Final Diagnosis performed by Dao Sepulveda MD, PhD. Electronically signed 07/04/2012 ENTIRE VAGINA / Unknown 07/02/2012 7:00 PM PRODUCTION WELDING SUPERVISOR 07/02/2012 7:23 PM PRODUCTION WELDING SUPERVISOR Laine [facility] LAB - MICROBIOLOGY O RDERABLES Performing Organization Address City/State/[facility] Co de Phone Number [address] [phone] * CHLAMYDIA TRACHOMATIS MAHAMED (07/02/2012 7:00 PM PRODUCTION WELDING SUPERVISOR) Chlamydia trachomatis MAHAMED () [facility] Comment: Specimen: Swab Reference: [id number] Test: Nucleic Acid Amplification/Detection of Chlamydia Trachomatis Interpretation: Chlamydia trachomatis: Not Detected Reference Range: Not Detected Comment: This analysis was performed by an [place] FDA approved test methodology (Gen-Probe Aptima 2). Test performed at [facility], [address] [place] [address] This case has been personally reviewed and interpreted by the attending (teaching) pathologist. Final Diagnosis performed by Dao Sepulveda MD, PhD. Electronically signed 07/04/2012 ENTIRE VAGINA / Unknown 07/02/2012 7:00 PM PRODUCTION WELDING SUPERVISOR 07/02/2012 7:23 PM PRODUCTION WELDING SUPERVISOR Laine [facility] LAB - MICRO[place]OLOGY [place] [address], [facility] [phone] * VIRAL CULTURE MISC (07/02/2012 7:00 PM PRODUCTION WELDING SUPERVISOR) Viral Culture General No virus isolated. . [facility] Comment: Performed at: [address] [id number] Personal Loan Specialist: Jesus Zapien MD, Phone: [phone] Preliminary Report: No virus isolated at 4 days. Next report to follow after 7 days. Performed at: [address] [id number] Personal Loan Specialist: Jesus Zapien MD, Phone: [phone] Preliminary Report: No virus isolated at 24 hours. Next report to follow after 4 days. Performed at: [address] [id number] Personal Loan Specialist: Jesus Zapien MD, Phone: [phone] !! EDITED OR CORRECTED RESULTS !! RESULT PREVIOUSLY REPORTED : Preliminary Report: No virus isolated at 24 hours. Next report to follow after 4 days. Performed at: [address] [id number] Personal Loan Specialist: Jesus Zapien MD, Phone: [phone] NOTIFIED [] AT 1322 ON 07/08/12 !! EDITED OR CORRECTED RESULTS !! RESULT PREVIOUSLY REPORTED : Preliminary Report: No virus isolated at 4 days. Next report to follow after 7 days. Performed at: [address] [id number] Personal Loan Specialist: Jesus Zapien MD, Phone: [phone] Preliminary Report: No virus isolated at 24 hours. Next report to follow after 4 days. Performed at: [address] [id number] Personal Loan Specialist: Jesus Zapien MD, Phone: [phone] !! EDITED OR CORRECTED RESULTS !! RESULT PREVIOUSLY REPORTED : Preliminary Report: No virus isolated at 24 hours. Next report to follow after 4 days. Performed at: [address] [id number] Personal Loan Specialist: Jesus Zapien MD, Phone: [phone] NOTIFIED [] AT 1322 ON 07/08/12 NOTIFIED [] AT 0825 ON 07/11/12 Exudate specimen from wound (specimen) (Unspecified) 07/02/2012 7:00 PM PRODUCTION WELDING SUPERVISOR 07/02/2012 7:48 PM PRODUCTION WELDING SUPERVISOR Narrative [facility] - 07/11/2012 8:25 AM PRODUCTION WELDING SUPERVISOR Specimen Type->Wound drainage Historical Provider MD LAB - MICROBIOLOG Y ORDERABLES [facility] [address] [place] [address], [facility] [phone] Care Teams Field Artillery Officer Relationship Specialty Start Date End Date Asiya Douglas MD [address] [place] [place] [phone] PCP - General 05/04/19
--- OUTSIDE RECORDS SUMMARY | 2024-06-30 07:20 | XMS_ITS | Encounter Summary ---
Author Organization [facility] Address [address] [place] [address] Care Team Providers Care Chemical Plant Operator Name Role Phone Unavailable Primary Care Provider Unavailabl e Encounter Details Date Type Department Care Team (Late st Contact Info) Description 10/11/2018 Abstract [facility] CONVERSION [address] [place] [address] , Generic Conversion, Social History Tobacco Use Types Packs/Day Years Used Date Smoking Tobacco: Never Assessed Comments Unknown Sex and Gender Information Value Date Recorded Sex Assigned at Not on file Legal Sex Female 5:48 PM VACUUM SYSTEM TESTER Gender Identity Not on file Sexual Orientation Not on file documented as of this encounter Plan of Treatment Not on file documented as of this encounter Visit Diagnoses Not on filedocumented in this encounter
--- OUTSIDE RECORDS SUMMARY | 2024-06-30 07:20 | XMS_ITS | Referral Summary ---
Author Organization [facility] Address [address] [address] Care Team Providers Care Director Of Strategic Sales Name Role Phone Asiya Douglas MD Primary Care Provider + [phone] Source Comments [facility],non-owned Affiliates and Associated Physician Practices is amultiple site organization consisting of ambulatory clinics and hospital sitesin [place], [place], [place] and [place]. This disclosure is being madepursuant to the Care Everywhere program and may not contain all information available regarding this patient. Last updated 18.[facility] [employer] Allergies No known active allergies Medications * [...] fluticasone propionate (FLONASE) 50 MCG/ACT nasal spray [place] 2 sprays into each nostril every 6 [...] of Treatment Not on file Care Teams Director Of Strategic Sales Relationship Specialty Start Date End Date Asiya Douglas MD [address] [place] [phone] PCP - General 05/04/19
--- OUTSIDE RECORDS SUMMARY | 2024-06-30 07:21 | XMS_ITS | CONTINUITY OF CARE DOCUMENT ---
Author Name inga xiong Address Unknown Organization [facility] Address [address] [place] [address] Phone [phone] Care Team Providers Care Tavern Operator Name Role Phone Henry Florence MD Unavailable [phone] SENA DANIEL MD Unavailable SENA DANIEL MD Unavailable [phone] PROBLEMS Condition Status Date Provider Notes Cocaine abuse, in remission active Henry swain MD Chest pain-type to be determined active Tanmay [place] MD Hyperlipidemia active Henry Florence MD HTN essential active Henry Florence MD BACK PAIN;CHRONIC active Henry Florence MD Tobacco dependence, continuous active Leon Florence MD FAMILY HISTORY OF HEART DISEASE active Almaz Florence MD dad subramanian mi Overweight active Henry Florence MD ENCOUNTERS Date Type Provider Location Encounter Diag nosis - In-person encounter Office Visit Henry Florence MD [facility] OverweightFAMILY HISTORY OF HEART DISEASETobacco dependence, continuousBACK PAIN;CHRONICHTN essentialHyperlipidemiaChest pain-type to be determinedCocaine abuse, in remission VITAL SIGNS Date Observation Value Provider Body Mass Index (Ratio) 28.08 kg/m2 Almaz Florence MD blood pressure, diastolic 75 mm[Hg] Ch kavita Tong blood pressure, systolic 107 mm[Hg] Letty Tong oxygen saturation, oximetry 98 % Subha Tong pulse rate 83 /min Subha Tong respiratory rate E&M 16 /min Perry Tong weight E&M 174 [lb_av] Subha Tong height E&M 66 [in_i] Maribeluc [facility] Ran ALLERGIES No Known Drug Allergies HISTORY [...] Payer name Policy type / Coverage type Mccoll red libertarian ID [employer] Choice Pos II Zachary Prell insurance company [id number] ADVANCE DIRECTIVES Name Date DISCUSSED - NO DECISION MADE TREATMENT PLAN Date Name Performer [id number],S, Henry keith MD [id number],S, Henry keith MD [id number],B, Henry keith MD [id number],B, Henry keith MD [id number],S, Henry keith MD [id number],S,neg nuc 2020 Henry Florence MD Cardiology Henry Florence MD Cardiology Henry Florence MD Cardiology Henry Florence MD Cardiology Henry Florence MD Cardiology Henry Florence MD Cardiology:neg nuc 2020 eHnry swain MD Date Name CT, Coronary Calcium Score Complete Echo HISTORY OF PROCEDURES Procedure Date Procedure Name Provider Procedure Notes S tatus EKG Henry Florence MD complete d
== END 2024-06-30 07:22 | disposition home or self-care (01) ==
LOC: ANHED 07:17
PROVIDERS: Emergency Provider Student in an Organized Health Care Education/Training Program; PCP Internal Medicine Gastroenterology
DX: J10.1 Influenza due to other identified influenza virus with other respiratory manifestations (principal); I10 Essential (primary) hypertension; Z20.822 Contact with and (suspected) exposure to COVID-19
CPT/HCPCS: 87637; 99283; A9270

== ENCOUNTER 2025-05-03 19:53 | Emergency (ER) | payer SELFPAY ==
--- OUTSIDE RECORDS SUMMARY | 2025-05-03 19:55 | XMS_ITS | Clinical Summary ---
Author Organization [facility] Address [address] [place], [place] [id number] Care Team Providers Care Blown Film Extrusion Operator Name Role Phone Unavailable Primary Care Provider Unavailabl e Social History Tobacco Use Types Packs/Day Years Used Date Smoking Tobacco: Never Assessed Comments Unknown Sex and Gender Information Value Date Recorded Sex Assigned at Not on file Legal Sex Female 5:48 PM BIOMASS PLANT MANAGER Gender Identity Not on file Sexual Orientation [...] Screening with HPV 1996 Mammogram Screening 2006 Pneumococcal Vaccine: 50+ Ye ars (1 of 1 - PCV) 2016 Zoster Vaccines (1 of 2) 2016 COVID-19 Vaccine ( - 2024-2 6 season) 2025 Influenza Adult (#1) 2025 Hepatitis A Vaccines Aged Out No long er eligible based on patient's age to complete this topic Meningococcal B Vaccine Aged Out No l onger eligible based on patient's age to complete this topic Meningococcal Vaccine Aged Out No debby saroj eligible based on patient's age to complete this topic RSV Immunizations Under 20 Months Aged Out No longer eligible based on patient's age to complete this topic Insurance [facility]
--- OUTSIDE RECORDS SUMMARY | 2025-05-03 19:55 | XMS_ITS | Data Portability ---
Author Organization [place] [facility] [employer], Main Office Address [address] [place] [address] Assessment No assessment recorded. Plan of Treatment Reminders Order Date Submit Date Provider Last Modified By Organization Details Last Modified Time Details Appointments None recorded. Lab None recorded. Referral None recorded. Procedures colonoscopy screening (PROC) 2022 [facility] (Pre-Screen), [address] [place], [address], 12:12:26 Surgeries None recorded. Imaging None recorded. Medication Orders Golytely 236 gram-22.74 gram-6.74 gram-5.86 gram oral solution 2022 [id number], [address], [place], [id number], 14:55:56 Patient TargetsNo targets recorded. Patient Instructions Encounter Date Encounter Id Patient Instructions Last Modified By Organization Details Last Modified Time 02/06/2023 [id number] GOLYTELY [email or web address] Not available 08/2022 14:44:42 PT NEEDS A SCREENING COLON . R/O POLYP . RECOMMEND A COLONOSOPY . Risks benefits and complications were explained to the pt. ( BLEEDING PERFORATION , INFECTION , ). PT VERBALIZES UNDERSTANDING AND IS WILLING TO PROCEDE . [email or web address] Not available 02/06/2023 14:44:49 Reason for Referral None Reported. Results Created Date Observation Date Name Description Value Unit Range Abnormal Flag Note LastModifiedBy Organization Detail LastModifiedTime 02/21/2002/20/2023 colon oscop y scree leslee (PROC ) No observ ation record ed. [facility] (Pre-Screen) [address] [place], [address], 02/20/2023 12:12:26 Result Notes None recorded. 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 Procedures Surgical History Date Name Laterality Status Provider Name and Address Organization Details Recorded Time Hemorrhoidectomy completed LUIS Llanos [employer] 12/25/2022 16:37:09 Tubal Ligation completed LUIS Llanos [employer] 12/25/2022 16:37:16 Imaging Results None recorded. Procedure Notes None recorded. Medical Equipment None [...] (BMI) Body weight Heart rate Oxygen saturation Systolic And Diastolic Provider Name and Address Organization Details Last Updated DateTime 3 170.18 cm 19.1 kg/m2 54225.2 7 g 102 /min 97 % 134/82 mm[Hg] LUIS Llanos [employer] 3 14:46:45 Social History Question Answer Notes LastModified by Organizat ion Details LastModified Time Tobacco Smoking Status Current Every Day Smoker LUIS Llanos, [facility] [employer] 12/25/2022 16:36:39 How Much Tobacco Do You Smoke? 0.5 PPD Information not available 12/25/2022 Sex: Unknown Functional Status Question Answer Note LastModified by Organization D etails LastModified Time What is your level of alcohol consumption? None Information not available 12/25/2022 Mental Status None recorded. Family History Relationship [...] Diagnosis SNOMED-CT Code Diagnosis ICD10 Code Diagnosis IMO Codes Diagnosis Note [id number] Bell Cornell MD [facility] [address] [address] 02/06/2023 14:43:07 02/06/2023 15:02:27 Screening for malignant neoplasm of colon 369799395 Z12.11 Health Concerns Section Related Observation LastModified by Organization Detai ls LastModified Time None Recorded Concern Status LastModified by Organization Details LastModified Time None Recorded Advance Directives Directive None Recorded Payers Insurance Date Sequence Insurance Name Policy Number Policy Mock Covered Member ID Mock Member ID Guarantor Name 02/06/2023 1 [employer] [id number] Magda Quiles [id number] Magda Quiles 01/15/2024 1 [employer] [id number] Magda Quiles [id number] Magda Quiles Notes Date Note Type Note Provider Name and Address Organization Details Recorded Time 02/06/2023 text/html ROS as noted in the HPI PT WAS SEEN IN THE OFFICE TODAY FOR COLON SCREENING . PT DENIES ABD PAIN /N/V/D/BLEEDING /WT LOSS. PT HAS LOST 77 LBS IN THE PAST YEAR . PT SISTER HAD 9 PRE CANCEROUS POLYPS REMOVED . Bell Cornell MD [address] [place] [address], [place], [address], [place] [facility] [employer] 02/06/2023 14:56:09 OBGyn Episode No OBEpisode recorded.
--- OUTSIDE RECORDS SUMMARY | 2025-05-03 19:55 | XMS_ITS | Encounter Summary ---
Author Organization [facility] Address [address] [place] [id number] Care Team Providers Care Guide Cruise Name Role Phone Unavailable Primary Care Provider Unavailabl e Encounter Details Date Type Department Care Team (Late st Contact Info) Description 10/11/2018 Abstract SFL CONVERSION [address] [place] [address] , Generic Conversion, Social History Tobacco Use Types Packs/Day Years Used Date Smoking Tobacco: Never Assessed Comments Unknown Sex and Gender Information Value Date Recorded Sex Assigned at Not on file Legal Sex Female 5:48 PM HAND MOLDER Gender Identity Not on file Sexual Orientation Not on file documented as of this encounter Plan of Treatment Not on file documented as of this encounter Visit Diagnoses Not on filedocumented in this encounter
--- OUTSIDE RECORDS SUMMARY | 2025-05-03 19:56 | XMS_ITS | Data Portability ---
Author Organization [facility] Address [address] [place] [address] Care Team Providers Care Reservations And Ticketing Agent Name Role Phone NICOL SALCEDO Leadership Intern Assessment Encounter Date Assessment Date Assessment LastModified [...] Asiya Douglas Date: Follow-up in 1-2 months [email or web address] Not available 03/03/2024 16:41:50 Plan of Treatment Reminders Order Date Submit Date Provider Last Modified By Organization Details Last Modified Time Details Appointments None recorded . Lab urinalys is, dipstick 2023 024 [email or web address] In-Office Order, Internal Use Only DO Not Attach Compendium DO Not Attach Compendium, Do Not Delete/merge, [id number] 11:04:07 HbA1c (hemoglo bin A1c), blood 2023 024 SIMIN [facility], [address] [address], [place], [address], 09:14:59 CMP, serum or plasma 2023 [facility], [address], [address], [place], [address], 09:14:56 CBC w/ auto diff 2023 [facility], [address], [address], [place], [address], 09:15:01 TSH, ultra-se nsitive, serum 2023 [facility], [address], [address], [place], [address], 09:14:57 HIV 1 + 2, meaningf ul use set 2023 [facility], [address] [place], [place] [address]gerald Van, [address], [place], [address], 4 09:15:07 RPR (rapid plasma reagin), serum 2023 [facility], [address] [place], [place] [address]jany Van, [address], [place], [address], 4 09:15:05 HBsAg (hepatit is B surface Ag), EIA, serum 2023 [facility], [address] [place], [place] [address]jany Van, [address], [place], [address], 4 09:15:03 Hepatiti s C IgG Ab, qual, serum 2023 [facility], [address] [place], [place] [address]jany Van, [address], [place], [address], 4 09:14:54 vaginal pathogen s panel, MAHAMED+prob e, vaginal fluid 2023 [facility], [address], [address], [place], [address], 4 11:28:06 pap, IG + reflex HPV 2023 024 [facility], [address], [address], [place], [address], 4 03:09:24 culture, wound 2022 023 [facility], [address] Shane [address], [address], [place], [address], 3 06:20:47 TSH, ultra-se nsitive, serum 2022 023 [facility], [address] Shane [address], [address], [place], [address], 3 06:17:37 CBC 2022 023 [facility], 20[address] Shane [address], [address], [place], [address], 3 08:33:41 vitamin B12 + folate, serum or blood 2022 023 [facility], [address] Shane [address], [address], [place], [address], 3 06:17:37 thiamine , QN, blood 2022 023 [facility], [address] Shane [address], [address], [place], [address], 3 19:08:37 CMP, serum or plasma 2022 023 [facility], [address] Shane [address], [address], [place], [address], 3 08:33:[address] referral 2022 024 kalee Cornell MD, 4 [facility], [address], [place], [address], 4 11:44:01 Procedures None recorded . Surgeries None recorded . Imaging MAMMO, screenin g, digital, bilatera l 2023 024 [facility] ([facility]), [address] [place], [address], 5 14:52:38 MAMMO, diagnost ic, unilater al - lump on right breast at 9:00 position near nipple 2023 024 [facility] ([facility]), [address] [place], [address], 4 15:23:50 US, breast, unilater al - lump on right breast at 9:00 position near nipple 2023 024 [facility] ([facility]), [address] [place], [address], 5 14:52:38 LDCT, chest, for lung cancer screenin g 2022 023 [facility] ([facility]), [address] [place], [address], 3 08:34:48 US, duplex, carotid artery - Left carotid bruit 2022 023 [facility] ([facility]), [address] [place], [address], 3 15:40:07 MAMMO, screenin g, bilatera l 2022 023 [facility] ([facility]), [address] [place], [address], 3 12:49:39 Medication Orders bupropio n HCl SR 150 mg tablet,1 2 hr sustaine d-releas e 2023 [facility][id number], [address], [place], [id number], 4 11:18:25 Replens vaginal gel 2023 [facility][id number], [address], [place], [id number], 11:14:48 Personal Lubrican t vaginal solution 2023 [facility][id number], [address], [place], [id number], 11:14:40 mupiroci n 2 % topical ointment 2022 [facility] #[id number], [address], [place], [id number], 09:53:40 Bactrim DS 800 mg-160 mg tablet 2022 023 [facility][id number], [address], [place], [id number], 09:53:31 albutero l sulfate HFA 90 mcg/actu ation aerosol inhaler 2022 023 [id number], [place], [id number], 09:53:16 Patient TargetsNo targets recorded. Patient Instructions Encounter Date Encounter Id Patient Instructions Last Modified By Organization Details Last Modified Time 12/25/2022 [id number] deciding about using medicines to quit smoking [email or web address] Not available 12/25/2022 11:17:09 Quitting Tobacco : Care Instructions Not available 12/25/2022 11:17:09 dizziness: care instructions [email or web address] Not available 12/25/2022 11:17:10 abnormal weight loss: care instructions [email or web address] Not available 12/25/2022 11:17:09 learning about breast cancer screening Not available 12/25/2022 11:17:10 shortness of breath: care instructions [email or web address] Not available 12/25/2022 11:17:09 04/01/2023 [id number] abnormal weight loss: care instructions Not available 04/01/2023 12:29:02 deciding about using medicines to quit smoking [email or web address] Not available 04/01/2023 12:29:02 Quitting Tobacco : Care Instructions Not available 04/01/2023 12:29:02 palpitations: care instructions [email or web address] Not available 04/01/2023 12:29:02 02/20/2024 [id number] On the date of this encounter, I saw and examined the patient, personally verifying the dominguez and critical findings in the resident s note. I reviewed and agree with the resident/fellow s findings and plan. ~MD [email or web address] Not available 03/01/2024 19:51:50 Reason for Referral [employer] Referral for Family history of polyp of colon First degree family history colon polyps Referring Physician: Asiya Douglas, Internal Medicine, Encounter Date: 12/25/2022 Results Created Date Observation Date Name Description Value Unit Range Abnormal Flag Note LastModifiedBy Organization Detail LastModifiedTime 12/26/1912/26/2022 TSH RFX ON ABNOR MAL TO FREE T4 TSH 0.297 uIU/m L 0.450- 4.500 below low normal Not Available [facility] ([facility]) [address] [facility], [place], [address], 12/26/2022 06:17:37 12/26/19 23 12/26/2022 VITAM IN B12 AND FOLAT E vitamin B12 302 pg/mL 232-12 45 Not Available [facility] ([facility]) [address] [facility], [place], [address], 12/26/2022 06:17:37 12/26/1912/26/2022 VITAM IN B12 AND FOLAT E folate (folic acid), serum 15.3 NG/mL >3.0 A serum folat e corry ntrat ion of less than 3.1 ng/mL is consi dered to repre sent clini lizy defic iency . Not Available [facility] ([facility]) [address] [facility], [place], [address], 12/26/2022 06:17:37 12/26/19 23 12/26/2022 COMP. METAB OLIC PANEL (14) glucose 77 mg/dL 70-99 Not Available [facility] ([facility]) [address] [facility], [place], [address], 12/26/2022 08:33:40 12/26/19 23 12/26/2022 COMP. METAB OLIC PANEL (14) BUN 23 mg/dL 6-24 Not Available [facility] ([facility]) [address] [place], [address], 12/26/2022 08:33:40 12/26/19 23 12/26/2022 COMP. METAB OLIC PANEL (14) creatinine 0.69 mg/dL 0.57-1 .00 Not Available [facility] ([facility]) [address] [facility], [place], [address], 12/26/2022 08:33:40 12/26/1912/26/2022 COMP. METAB OLIC PANEL (14) eGFR 102 mL/mi n/1.7 3 >59 Not Available [facility] ([facility]) [address] [place], [address], 12/26/2022 08:33:40 12/26/19 23 12/26/2022 COMP. METAB OLIC PANEL (14) BUN/creatini ne ratio 33 9-23 above high normal Not Available [facility] ([facility]) [address] [facility] [place], [address], 12/26/2022 08:33:40 12/26/1912/26/2022 COMP. METAB OLIC PANEL (14) sodium 141 mmol/ L 134-14 4 Not Available [facility] ([facility]) [address] [facility] [place], [address], 12/26/2022 08:33:40 12/26/19 23 12/26/2022 COMP. METAB OLIC PANEL (14) potassium - mmol/ L Test not perfo rmed. Speci men is hemol yzed. Unabl e to obtai n valid resul ts. Not Available [facility] ([facility]) [address] [facility] [place], [address], 12/26/2022 08:33:40 12/26/19 23 12/26/2022 COMP. METAB OLIC PANEL (14) chloride 105 mmol/ L 96-106 Not Available [facility] ([facility]) [address] [facility] [place], [address], 12/26/2022 08:33:40 12/26/1912/26/2022 COMP. METAB OLIC PANEL (14) carbon dioxide, total 18 mmol/ L 20-29 below low normal Not Available [facility] ([facility]) [address] [facility] [place], [address], 12/26/2022 08:33:40 12/26/1912/26/2022 COMP. METAB OLIC PANEL (14) calcium 9.9 mg/dL 8.7-10 .2 Not Available [facility] ([facility]) [address] [facility] [place], [address], 12/26/2022 08:33:40 12/26/19 23 12/26/2022 COMP. METAB OLIC PANEL (14) protein, total 7.2 g/dL 6.0-8. 5 Not Available [facility] ([facility]) [address] [place], [address], 12/26/2022 08:33:40 12/26/19 23 12/26/2022 COMP. METAB OLIC PANEL (14) albumin 4.6 g/dL 3.8-4. 9 Not Available [facility] ([facility]) [address] [facility] [place], [address], 12/26/2022 08:33:40 12/26/19 23 12/26/2022 COMP. METAB OLIC PANEL (14) globulin, total 2.6 g/dL 1.5-4. 5 Not Available [facility] ([facility]) [address] [facility] [place], [address], 12/26/2022 08:33:40 12/26/19 23 12/26/2022 COMP. METAB OLIC PANEL (14) A/G ratio 1.8 1.2-2. 2 Not Available [facility] ([facility]) [address] [facility], [place], [address], 12/26/2022 08:33:40 12/26/1912/26/2022 COMP. METAB OLIC PANEL (14) bilirubin, total 0.5 mg/dL 0.0-1. 2 Not Available [facility] ([facility]) [address] [facility] [place], [address], 12/26/2022 08:33:40 12/26/19 23 12/26/2022 COMP. METAB OLIC PANEL (14) alkaline phosphatase 90 IU/L 44-121 Not Available [facility]) [address] [facility] [place], [address], 12/26/2022 08:33:40 12/26/19 23 12/26/2022 COMP. METAB OLIC PANEL (14) AST (SGOT) 32 IU/L 0-40 Not Available [facility] ([facility]) [address] [facility] [place], [address], 12/26/2022 08:33:40 12/26/1912/26/2022 COMP. METAB OLIC PANEL (14) ALT (SGPT) 15 IU/L 0-32 Not Available [facility] ([facility]) [address] [facility], [place], [address], 12/26/2022 08:33:40 12/26/1912/26/2022 CBC, PLATE LET, NO DIFFE RENTI AL WBC 6.0 x10e3 /uL 3.4-10 .8 Not Available [facility] ([facility]) [address] [facility], [place], [address], 12/26/2022 08:33:41 12/26/1912/26/2022 CBC, PLATE LET, NO DIFFE RENTI AL RBC 4.44 x10e6 /uL 3.77-5 .28 Not Available [facility] ([facility]) [address] [facility], [place], [address], 12/26/2022 08:33:41 12/26/1912/26/2022 CBC, PLATE LET, NO DIFFE RENTI AL hemoglobin 14.4 g/dL 11.1-1 5.9 Not Available [facility] ([facility]) [address] [facility], [place], [address], 12/26/2022 08:33:41 12/26/1912/26/2022 CBC, PLATE LET, NO DIFFE RENTI AL hematocrit 42.6 % 34.0-4 6.6 Not Available [facility] ([facility]) [address] [facility], [place], [address], 12/26/2022 08:33:41 12/26/1912/26/2022 CBC, PLATE LET, NO DIFFE RENTI AL MCV 96 fL 79-97 Not Available [facility] ([facility]) [address] [facility], [place], [address], 12/26/2022 08:33:41 12/26/1912/26/2022 CBC, PLATE LET, NO DIFFE RENTI AL MCH 32.4 pg 26.6-3 3.0 Not Available [facility] ([facility]) [address] [place], [address], 12/26/2022 08:33:41 12/26/1912/26/2022 CBC, PLATE LET, NO DIFFE RENTI AL MCHC 33.8 g/dL 31.5-3 5.7 Not Available [facility] ([facility]) [address] [place], [address], 12/26/2022 08:33:41 12/26/1912/26/2022 CBC, PLATE LET, NO DIFFE RENTI AL RDW 11.9 % 11.7-1 5.4 Not Available [facility] ([facility]) [address] [place], [address], 12/26/2022 08:33:41 12/26/1912/26/2022 CBC, PLATE LET, NO DIFFE RENTI AL platelets 250 x10e3 /uL 150-45 0 Not Available [facility] ([facility]) [address] [place], [address], 12/26/2022 08:33:41 12/26/1912/28/2022 VITAM IN B1 (THIA MINE) , BLOOD vit. B1, whole blood 121.9 nmol/ L 66.5-2 00.0 Not Available [facility] ([facility]) [address] [place], [address], 12/28/2022 19:08:37 12/26/1912/26/2022 T4F T4,free (direct) 1.30 NG/dL 0.82-1 .77 Not Available [facility] ([facility]) [address] [place], [address], 12/26/2022 06:17:38 02/20/2002/26/2023 ANAER OBIC AND AEROB IC CULTU RE aerobic culture Final report Not Available [facility] ([facility]) [address] [facility] [place], [address], 03/01/2023 06:20:47 02/20/2002/26/2023 ANAER OBIC AND AEROB IC CULTU RE result 1 Mixed skin jb Not Available [facility] ([facility]) [address] [facility], [place], [address], 03/01/2023 06:20:47 02/20/2002/28/2023 ANAER OBIC AND AEROB IC CULTU RE anaerobic culture Final report Not Available [facility] ([facility]) [address] [facility], [place], [address], 03/01/2023 06:20:47 02/20/2002/28/2023 ANAER OBIC AND AEROB IC CULTU RE result 1 Commen t No anaer obic growt h in 72 hours . Not Available [facility] ([facility]) [address] [facility], [place], [address], 03/01/2023 06:20:47 02/20/2002/21/2024 INTER PRETA TION: interpretati on: Commen t Not infec coty with HCV unles s early or acute infec tion is suspe cted (whic h may be delay ed in an immun ocomp romis ed indiv idual ), or other evide nce exist s to indic ate HCV infec tion. Not Available [facility] ([facility]) [address] [facility], [place], [address], 02/21/2024 09:14:52 02/20/2002/21/2024 HCV ANTIB CECELIA RFX TO QUANT PCR HCV Ab NON REACTI VE nonrea ctive Not Available [facility] ([facility]) [address] [facility] [place], [address], 02/21/2024 09:14:53 02/20/20 24 02/21/2024 COMP. METAB OLIC PANEL (14) glucose 84 mg/dL 70-99 Not Available [facility] ([facility]) [address] [place], [address], 02/21/2024 09:14:55 02/20/20 24 02/21/2024 COMP. METAB OLIC PANEL (14) BUN 22 mg/dL 6-24 Not Available [facility] ([facility]) [address] [place], [address], 02/21/2024 09:14:55 02/20/2002/21/2024 COMP. METAB OLIC PANEL (14) creatinine 0.83 mg/dL 0.57-1 .00 Not Available [facility] ([facility]) [address] [place], [address], 02/21/2024 09:14:55 02/20/20 24 02/21/2024 COMP. METAB OLIC PANEL (14) eGFR 82 mL/mi n/1.7 3 >59 Not Available [facility] ([facility]) [address] [place], [address], 02/21/2024 09:14:55 02/20/20 24 02/21/2024 COMP. METAB OLIC PANEL (14) BUN/creatini ne ratio 27 9-23 above high normal Not Available [facility] ([facility]) [address] [place], [address], 02/21/2024 09:14:55 02/20/20 24 02/21/2024 COMP. METAB OLIC PANEL (14) sodium 144 mmol/ L 134-14 4 Not Available [facility] ([facility]) [address] [place], [address], 02/21/2024 09:14:55 02/20/20 24 02/21/2024 COMP. METAB OLIC PANEL (14) potassium 5.0 mmol/ L 3.5-5. 2 Not Available [facility] ([facility]) [address] [facility], [place], [address], 02/21/2024 09:14:55 02/20/20 24 02/21/2024 COMP. METAB OLIC PANEL (14) chloride 107 mmol/ L 96-106 above high normal Not Available [facility] ([facility]) [address] [facility], [place], [address], 02/21/2024 09:14:55 02/20/20 24 02/21/2024 COMP. METAB OLIC PANEL (14) carbon dioxide, total 24 mmol/ L 20-29 Not Available [facility] ([facility]) [address] [facility], [place], [address], 02/21/2024 09:14:55 02/20/2002/21/2024 COMP. METAB OLIC PANEL (14) calcium 9.7 mg/dL 8.7-10 .2 Not Available [facility] ([facility]) [address] [facility], [place], [address], 02/21/2024 09:14:55 02/20/20 24 02/21/2024 COMP. METAB OLIC PANEL (14) protein, total 6.9 g/dL 6.0-8. 5 Not Available [facility] ([facility]) [address] [facility], [place], [address], 02/21/2024 09:14:55 02/20/20 24 02/21/2024 COMP. METAB OLIC PANEL (14) albumin 4.3 g/dL 3.8-4. 9 Not Available [facility] ([facility]) [address] [facility] [place], [address], 02/21/2024 09:14:55 02/20/20 24 02/21/2024 COMP. METAB OLIC PANEL (14) globulin, total 2.6 g/dL 1.5-4. 5 Not Available [facility] ([facility]) [address] [facility] [place], [address], 02/21/2024 09:14:55 02/20/2002/21/2024 COMP. METAB OLIC PANEL (14) bilirubin, total 0.4 mg/dL 0.0-1. 2 Not Available [facility] ([facility]) [address] [place], [address], 02/21/2024 09:14:55 02/20/2002/21/2024 COMP. METAB OLIC PANEL (14) alkaline phosphatase 110 IU/L 44-121 Not Available [facility] ([facility]) [address] [place], [address], 02/21/2024 09:14:55 02/20/20 24 02/21/2024 COMP. METAB OLIC PANEL (14) AST (SGOT) 19 IU/L 0-40 Not Available [facility] ([facility]) [address] [place], [address], 02/21/2024 09:14:55 02/20/2002/21/2024 COMP. METAB OLIC PANEL (14) ALT (SGPT) 16 IU/L 0-32 Not Available [facility] ([facility]) [address] [place], [address], 02/21/2024 09:14:55 02/20/2002/21/2024 TSH RFX ON ABNOR MAL TO FREE T4 TSH 0.280 uIU/m L 0.450- 4.500 below low normal Not Available [facility] ([facility]) [address] [place], [address], 02/21/2024 09:14:57 02/20/2002/21/2024 HEMOG LOBIN A1C hemoglobin A1C 5.5 % 4.8-5. 6 Predi abete s: 5.7 - 6.4 Diabe holly: >6.4 Glyce mirza contr ol for adult s with diabe holly: <7.0 Not Available [facility] ([facility]) [address] [facility], [place], [address], 02/21/2024 09:14:59 02/20/2002/21/2024 T4F T4,free (direct) 1.31 NG/dL 0.82-1 .77 Not Available [facility] ([facility]) [address] [facility], [place], [address], 02/21/2024 09:15:00 02/20/2002/21/2024 CBC WITH DIFFE RENTI AL/PL ATELE T WBC 5.0 x10e3 /uL 3.4-10 .8 Not Available [facility] ([facility]) [address] [facility], [place], [address], 02/21/2024 09:15:01 02/20/2002/21/2024 CBC WITH DIFFE RENTI AL/PL ATELE T RBC 4.59 x10e6 /uL 3.77-5 .28 Not Available [facility] ([facility]) [address] [facility], [place], [address], 02/21/2024 09:15:01 02/20/2002/21/2024 CBC WITH DIFFE RENTI AL/PL ATELE T hemoglobin 14.9 g/dL 11.1-1 5.9 Not Available [facility] ([facility]) [address] [place], [address], 02/21/2024 09:15:01 02/20/2002/21/2024 CBC WITH DIFFE RENTI AL/PL ATELE T hematocrit 44.8 % 34.0-4 6.6 Not Available [facility] ([facility]) [address] [facility], [place], [address], 02/21/2024 09:15:01 10/17/20 24 02/21/2024 CBC WITH DIFFE RENTI AL/PL ATELE T MCV 98 fL 79-97 above high normal Not Available [facility] ([facility]) [address] [facility], [place], [address], 02/21/2024 09:15:01 02/20/20 24 02/21/2024 CBC WITH DIFFE RENTI AL/PL ATELE T MCH 32.5 pg 26.6-3 3.0 Not Available [facility] ([facility]) [address] [facility], [place], [address], 02/21/2024 09:15:01 02/20/2002/21/2024 CBC WITH DIFFE RENTI AL/PL ATELE T MCHC 33.3 g/dL 31.5-3 5.7 Not Available [facility] ([facility]) [address] [facility], [place], [address], 02/21/2024 09:15:01 02/20/20 24 02/21/2024 CBC WITH DIFFE RENTI AL/PL ATELE T RDW 11.8 % 11.7-1 5.4 Not Available [facility] ([facility]) [address] [place], [address], 02/21/2024 09:15:01 02/20/20 24 02/21/2024 CBC WITH DIFFE RENTI AL/PL ATELE T platelets 298 x10e3 /uL 150-45 0 Not Available [facility] ([facility]) [address] [place], [address], 02/21/2024 09:15:01 02/20/2002/21/2024 CBC WITH DIFFE RENTI AL/PL ATELE T neutrophils 53 % notest ab. Not Available [facility] ([facility]) [address] [place], [address], 02/21/2024 09:15:01 02/20/20 24 02/21/2024 CBC WITH DIFFE RENTI AL/PL ATELE T lymphs 33 % notest ab. Not Available [facility] ([facility]) [address] [facility], [place], [address], 02/21/2024 09:15:01 02/20/20 24 02/21/2024 CBC WITH DIFFE RENTI AL/PL ATELE T monocytes 10 % notest ab. Not Available [facility] ([facility]) [address] [facility], [place], [address], 02/21/2024 09:15:01 02/20/20 24 02/21/2024 CBC WITH DIFFE RENTI AL/PL ATELE T eos 3 % notest ab. Not Available [facility] ([facility]) [address] [facility], [place], [address], 02/21/2024 09:15:01 02/20/20 24 02/21/2024 CBC WITH DIFFE RENTI AL/PL ATELE T basos 1 % notest ab. Not Available [facility] ([facility]) [address] [facility], [place], [address], 02/21/2024 09:15:01 02/20/2002/21/2024 CBC WITH DIFFE RENTI AL/PL ATELE T neutrophils (absolute) 2.6 x10e3 /uL 1.4-7. 0 Not Available [facility] ([facility]) [address] [facility], [place], [address], 02/21/2024 09:15:01 02/20/20 24 02/21/2024 CBC WITH DIFFE RENTI AL/PL ATELE T lymphs (absolute) 1.7 x10e3 /uL 0.7-3. 1 Not Available [facility] ([facility]) [address] [facility], [place], [address], 02/21/2024 09:15:01 02/20/20 24 02/21/2024 CBC WITH DIFFE RENTI AL/PL ATELE T monocytes(ab solute) 0.5 x10e3 /uL 0.1-0. 9 Not Available [facility] ([facility]) [address] [facility], [place], [address], 02/21/2024 09:15:01 02/20/20 24 02/21/2024 CBC WITH DIFFE RENTI AL/PL ATELE T eos (absolute) 0.2 x10e3 /uL 0.0-0. 4 Not Available [facility] ([facility]) [address] [facility], [place], [address], 02/21/2024 09:15:01 02/20/20 24 02/21/2024 CBC WITH DIFFE RENTI AL/PL ATELE T baso (absolute) 0.1 x10e3 /uL 0.0-0. 2 Not Available [facility] ([facility]) [address] [facility], [place], [address], 02/21/2024 09:15:01 02/20/2002/21/2024 CBC WITH DIFFE RENTI AL/PL ATELE T immature granulocytes 0 % notest ab. Not Available [facility] ([facility]) [address] [facility], [place], [address], 02/21/2024 09:15:01 02/20/20 24 02/21/2024 CBC WITH DIFFE RENTI AL/PL ATELE T immature grans (abs) 0.0 x10e3 /uL 0.0-0. 1 Not Available [facility] ([facility]) [address] [facility], [place], [address], 02/21/2024 09:15:01 02/20/2002/21/2024 HBSAG SCREE N HBsAg screen NEGATI VE negati ve Not Available [facility] ([facility]) [address] [facility], [place], [address], 02/21/2024 09:15:03 02/20/2002/21/2024 RPR, RFX QN RPR/C ONFIR M TP RPR NON REACTI VE nonrea ctive Not Available [facility] ([facility]) [address] [facility], [place], [address], 02/21/2024 09:15:05 02/20/2002/21/2024 HIV AB/P2 4 AG WITH REFLE X HIV Ab/P24 Ag screen NON REACTI VE nonrea ctive HIV-1 /HIV- 2 antib odies and HIV-1 p24 antig en were NOT detec coty. There is no labor atory evide nce of HIV infec tion. HIV Negat robert Not Available [facility] ([facility]) [address] [facility], [place], [address], 02/21/2024 09:15:07 02/20/2002/21/2024 NUSWA B VAGIN ITIS PLUS (VG+) atopobium vaginae HIGH - 2 score abnormal Not Available [facility] ([facility]) [address] [facility], [place], [address], 02/23/2024 03:06:39 02/20/2002/21/2024 NUSWA B VAGIN ITIS PLUS (VG+) bvab 2 HIGH - 2 score abnormal Not Available [facility] ([facility]) [address] [facility], [place], [address], 02/23/2024 03:06:39 02/20/2002/21/2024 NUSWA B VAGIN ITIS [...] prese nce of BV. Not Available [facility] ([facility]) [address] [facility], [place], [address], 02/23/2024 03:06:39 02/20/2002/21/2024 NUSWA B VAGIN ITIS PLUS (VG+) florentin albicans, MHAAMED NEGATI VE negati ve Not Available [facility] ([facility]) [address] [facility], [place], [address], 02/23/2024 03:06:39 02/20/2002/21/2024 NUSWA B VAGIN ITIS PLUS (VG+) florentin glabrata, MAHAMED NEGATI VE negati ve Not Available [facility] ([facility]) [address] [place], [address], 02/23/2024 03:06:39 02/20/2002/22/2024 NUA B VAGIN ITIS PLUS (VG+) trich vag by MAHAMED NEGATI VE negati ve Not Available [facility] ([facility]) [address] [facility], [place], [address], 02/23/2024 03:06:39 02/20/2002/22/2024 NUA B VAGIN ITIS PLUS (VG+) chlamydia trachomatis, MAHAMED NEGATI VE negati ve Not Available [facility] ([facility]) [address] [place], [address], 02/23/2024 03:06:39 02/20/2002/22/2024 NUA B VAGIN ITIS PLUS (VG+) neisseria gonorrhoeae, MAHAMED NEGATI VE negati ve Not Available [facility] ([facility]) [address] [place], [address], 02/23/2024 03:06:39 02/20/2002/20/2024 IGP,A PTIMA HPV,A GE GDLN age gdln acog testing 30-65 Not Available [facility] ([facility]) [address] [place], [address], 02/27/2024 03:09:24 02/20/2002/21/2024 IGP, APTIM A HPV, RFX 16/18 ,45 HPV aptima Positi ve negati ve abnormal This nucle ic acid ampli ficat ion test detec ts fourt een high- risk HPV types (16,1 8,31, 33,35 ,39,4 5,51, 52,56 ,58,5 9,66, 68) witho ut diffe renti ation . Not Available [facility] ([facility]) [address] [facility], [place], [address], 02/27/2024 03:09:26 02/20/2002/26/2024 IGP, APTIM A HPV, RFX 16/18 ,45 diagnosis: Alex lopes NEGJANET ROBERT FOR INTRA EPITH ELIAL CARMELO N OR YASMIN RAO . Not Available [facility] ([facility]) [address] [facility], [place], [address], 02/27/2024 03:09:26 02/20/2002/26/2024 IGP, APTIM A HPV, RFX 16/18 ,45 specimen adequacy: Alex lopes Satis facto ry for evalu ation . Endoc ervic al and/o r squam ous metap lasti c cells (endo cervi lizy compo nent) are prese nt. Not Available [facility] ([facility]) [address] [facility], [place], [address], 02/27/2024 03:09:26 02/20/2002/26/2024 IGP, APTIM A HPV, RFX 16/18 ,45 clinician provided ICD10: Alex lopes Z12.4 Not Available [facility] ([facility]) [address] [facility], [place], [address], 02/27/2024 03:09:26 02/20/2002/26/2024 IGP, APTIM A HPV, RFX 16/18 ,45 performed by: Alex stone, Cytomoses lopes (ASCP ) Not Available [facility] ([facility]) [address] [place], [address], 02/27/2024 03:09:26 02/20/20 24 02/26/2024 IGP, APTIM A HPV, RFX 16/18 ,45 . . Not Available [facility] ([facility]) [address] [place], [address], 02/27/2024 03:09:26 02/20/2002/26/2024 IGP, APTIM A HPV, RFX 16/18 ,45 note: Alex lopes The Pap smear is a scree leslee test desig puma to aid in the detec tion of nicole ligna nt and malig nant condi tions of the uteri ne cervi x. It is not a diagn ostic proce dure and shoul d not be used as the sole means of detec ting cervi lizy cance r. Both false -posi tive and false -nega tive repor ts do occur . Not Available [facility] ([facility]) [address] [facility], [place], [address], 02/27/2024 03:09:26 02/20/2002/26/2024 IGP, APTIM A HPV, RFX 16/18 ,45 test methodology: Alex lopes This liqui d based ThinP rep(R ) pap test was scree puma with the use of an image guide d syste m. Not Available [facility] ([facility]) [address] [place], [address], 02/27/2024 03:09:26 02/20/2002/26/2024 IGP, APTIM A HPV, RFX 16/18 ,45 HPV genotype reflex Alex lopes Crite rabia met, see HPV Genot ype resul ts. Not Available [facility] ([facility]) [address] [place], [address], 02/27/2024 03:09:26 02/20/2002/27/2024 HPV GENOT YPES 16/18 ,45 HPV genotype 16 Negati ve negati ve Not Available [facility] ([facility]) [address] [facility], [place], [address], 02/27/2024 03:09:26 02/20/2002/27/2024 HPV GENOT YPES 16/18 ,45 HPV genotype 18,45 Negati ve negati ve Not Available [facility] ([facility]) [address] [facility], [place], [address], 02/27/2024 03:09:26 02/20/2002/20/2024 urina lysis , dipst ick Leukocytes Trace Not Available In-Offi ce Order Internal Use Only DO Not Attach Compendium DO Not Attach Compendium, Do Not Delete/merge, [id number] 02/20/2024 10:34:25 02/20/2002/20/2024 urina lysis , dipst ick Nitrite negati ve Not Available In-Office Order Internal Use Only DO Not Attach Compendium DO Not Attach Compendium, Do Not Delete/merge, [id number] 02/20/2024 10:34:25 02/20/2002/20/2024 urina lysis , dipst ick Urobilinogen 1 Not Available In-Of fice Order Internal Use Only DO Not Attach Compendium DO Not Attach Compendium, Do Not Delete/merge, 02/20/2024 10:34:25 02/20/2002/20/2024 urina lysis , dipst ick Protein Negati ve Not Available In-Office Order Internal Use Only DO Not Attach Compendium DO Not Attach Compendium, Do Not Delete/merge, 02/20/2024 10:34:25 02/20/2002/20/2024 urina lysis , dipst ick pH 6.5 Not Available In-Office Order Internal Use Only DO Not Attach Compendium DO Not Attach Compendium, Do Not Delete/merge, [id number] 02/20/2024 10:34:25 02/20/20 24 02/20/2024 urina lysis , dipst ick Blood Hemoly zed: Trace Not Available In-Office Order Internal Use Only DO Not Attach Compendium DO Not Attach Compendium, Do Not Delete/merge, [id number] 02/20/2024 10:34:25 02/20/20 24 02/20/2024 urina lysis , dipst ick Specific [place] 1.025 Not Available In-Off ice Order Internal Use Only DO Not Attach Compendium DO Not Attach Compendium, Do Not Delete/merge, [id number] 02/20/2024 10:34:25 02/20/20 24 02/20/2024 urina lysis , dipst ick Ketone Negati ve Not Available In-Office Order Internal Use Only DO Not Attach Compendium DO Not Attach Compendium, Do Not Delete/merge, [id number] 02/20/2024 10:34:25 02/20/20 24 02/20/2024 urina lysis , dipst ick Bilirubin Negati ve Not Available In-Office Order Internal Use Only DO Not Attach Compendium DO Not Attach Compendium, Do Not Delete/merge, [id number] 02/20/2024 10:34:25 02/20/20 24 02/20/2024 urina lysis , dipst ick Glucose Negati ve Not Available In-Office Order Internal Use Only DO Not Attach Compendium DO Not Attach Compendium, Do Not Delete/merge, [id number] 02/20/2024 10:34:25 01/05/20 23 01/04/2023 US, duple x, carot id arter y No observ ation record ed. [address] [place], [address], 01/14/2023 13:26:43 01/22/2001/21/2023 MAMMO , scree leslee, bilat eral No observ ation record ed. [address] [place], [address], 01/31/2023 18:15:40 Result Notes None recorded. Problems Name Problem SNOMED Code Status Onset Date Resolution Date Notes Provider Name and Address Organization Details Recorded Time Finger joint - synovial swelling 317072486 Active Mukul [place], [place] [facility] 6 17:31:30 Menopaus al symptom 13509178 Active Sonya Rouse MD Attn: Ira huizar,[address] [place], [address], [place] [facility] 4 09:55:11 Furuncle of vulva 730178801 Active Mukul [place] [facility] 6 17:31:30 Infectio n by Trichomo sera 63132064 Completed 02/24/2024 Sonya Rouse MD Attn: Ira huizar,[address] [facility], [place], [address], [place] [facility] 4 09:55:24 Abnormal uterine bleeding 89522544923 100 Active Mukul [place] [facility] 6 17:31:30 Abscess of vulva 99642388 Active Ingrid Nascimento [place] [facility] 6 12:26:01 Pain of wrist region 56328000 Active Mukul [place] [facility] 17:31:30 Cough 59327993 Active Mukul [place] [facility] 17:31:30 Tobacco user 299191245 Active Sonya Rouse MD Attn: Ira huizar,[address] [facility], [place], [address] [facility] 4 09:55:00 Allergic rhinitis 79830508 Active Mukul [place] [facility] 6 17:31:30 Palpitat ions 14381912 Active Mukul [place] [facility] 17:31:30 Atypical chest pain 035297095 Active Mukul [place] [facility] 17:31:30 Fibrocys tic disease of breast 17036504 Active Sonya Rouse MD Attn: Ira huizar,[address] [place], [address], [place] [facility] 4 09:55:25 Pain in female genitali a on intercou rse 08550310 Active [place] [facility] 17:31:30 Upper respirat ory infectio n 86175032 Active 2015 Asiya Douglas MD Attn: Ira gaye,[address] [place], [address] [facility] 6 17:12:31 Gastroes ophageal reflux disease 585561342 Active 2015 Asiya Douglas MD Attn: Ira gaye,[address] [place], [address] [facility] 17:14:17 Pain in right arm 151962352 Active 2015 Asiya Douglas MD Attn: Ira gaye,[address] [place], [address] [facility] 6 17:18:46 Vertigo 021856032 Active 2016 Asiya Douglas MD Attn: Ira gaye,[address] [place], [address] [facility] 7 19:15:44 Dizzines s 525875909 Active 2016 Asiya Douglas MD Attn: Ira huizar,[address] [place], [address] [facility] 7 19:16:10 Elevated blood-pr essure reading without diagnosi s of hyperten ayaka 692454860 Completed 201707/14/2018 Asiya Douglas MD Attn: Ira huizar,[address] [place], [address], [place] [facility] 9 10:44:17 Foot callus 084573515 Active 2017 Bilatera l Asiya Douglas MD Attn: Ira huizar,[address] [facility], [place], [address] [facility] 8 12:28:03 Headache 18791744 Active 2017 Differen t from migraine s Asiya Douglas MD Attn: Bridgetteakua huizar,[address] [facility], [place], [address] [facility] 8 12:28:41 Temporom andibula r joint disorder 91366370 Active 2017 left Asiya Douglas MD Attn: Ira gaye,[address] [facility], [place], [address] [facility] 8 12:29:13 Essentia l hyperten ayaka 23062886 Active 2017 Newly diagnose d Asiya Douglas MD Attn: Ira gaye,[address] [facility], [place], [address] [facility] 8 13:34:10 Callosit y 486272073 Active 2018 4th and 5th toes L foot Asiya Douglas MD Attn: Ira gaye,[address] [facility], [place], [address], [place] [facility] 9 11:04:35 Dislocat ion of temporom andibula r joint 955987060 Active 2018 Asiya Douglas MD Attn: Ira gaye,[address] [facility], [place], [address] [facility] 9 23:46:24 Paresthe william of hand 102629743 Active 2019 Bilatera l Asiya Douglas MD Attn: Ira gaye,[address] [facility], [place], [address], [place] [facility] 0 10:51:21 Mass of right breast 53676939777 196558 Active 2020 Sonya Rouse MD Attn: Ira gaye,[address] [facility], [place], [address] [facility] 4 09:55:14 Lesion of soft tissue 687028910 Active 2020 rioght upper scapula Asiya Douglas MD Attn: Accountin g,[address] [facility], [place], [address] [facility] 1 17:12:24 Disorder of soft tissue 71084822 Active 2020 right upper back Asiya Douglas MD Attn: Accountin g,[address] [facility], [place], [address], [place] [facility] 1 17:13:56 Family history of polyp of colon 154455554 Active 2022 Asiya Douglas MD Attn: Accountakua huizar,[address] [facility], [place], [address], [place] [facility] 3 11:04:24 Tobacco dependen ce syndrome 53428064 Active 2022 Sonya Rouse MD Attn: Accountin g,[address] [facility], [place], [address], [place] [facility] 4 09:55:03 Dyspnea 215408377 Active 2022 Asiya Douglas MD Attn: Accountin gaye,[address] [place], [address] [facility] 3 11:05:32 Carotid bruit 411744315 Active 2022 Left Asiya Douglas MD Attn: Accountin g,[address] [facility], [place], [address], [place] [facility] 3 11:06:14 Abnormal weight loss 139716602 Active 2022 Asiya Douglas MD Attn: Accountin g,[address] [place], [address] [facility] 3 11:09:02 Screenin g for malignan t neoplasm of breast Active 2022 Asiya Douglas MD Attn: Accountin g,[address] [facility], [place], [address], [place] [facility] 3 11:15:29 Serum thyroid stimulat ing hormone level outside referenc e range 675581279 Active 2022 Sonya Rouse MD Attn: Ira huizar,[address] [facility], [place], [address] [facility] 4 09:55:05 Bacteria l vaginosi s 369973944 Active 2023 Sonya Rouse MD Attn: Accountakua huizar,[address] [facility], [place], [address] [facility] 4 09:55:35 Gynecolo gic examinat ion Active 2023 Sonya Rouse MD Attn: Bridgetteakua huizar,[address] [facility], [place], [address] [facility] 4 09:53:15 Vaginal dryness 41750220 Active 2023 Sonya Rouse MD Attn: Bridgetteakua huizar,[address] [facility], [place], [address], [place] [facility] 4 09:54:58 Menopaus al flushing 977775376 Active 2023 Sonya Rouse MD Attn: Ira huizar,[address] [place], [address] [facility] 4 09:55:12 Insomnia 560750593 Active 2023 Sonya Rouse MD Attn: Ira g,[address] [facility], [place], [address] [facility] 4 09:55:17 Screenin g for malignan t neoplasm of cervix Active 2023 Sonya Rouse MD Attn: Ira gaye,[address] [place], [address] [facility] 4 09:53:24 Female urinary stress incontin ence 51944404 Active 2023 Sonya Rouse MD Attn: Ira huizar,[address] [facility], [place], [address] [facility] 4 09:55:31 Venereal disease screenin g Active 2023 Sonya Rouse MD Attn: Ira huizar,[address] [facility], [place], [address] [facility] 4 09:53:26 Screenin g mammogra phy Active 2023 Sonya Rouse MD Attn: Accountakua huizar,[address] [facility], [place], [address], [place] [facility] 4 09:53:31 Marijuan a user 137190357 Active 2023 Sonya Rouse MD Attn: Ira huizar,[address] [facility], [place], [address] [facility] 4 09:55:15 Vaping Active 2023 Sonya Rouse MD Attn: Ira huizar,[address] [facility], [place], [address] [facility] 4 09:54:56 Subclini lizy hyperthy roidism 806284725 Active 2023 TSH 0.28 in Feb 2024, T4 WNL Sonya Rouse MD Attn: Ira huizar,[address] [facility], [place], [address], [place] [facility] 4 10:37:31 Human papillom a virus infectio n 559780871 Active 2023 pap smear 02/20/24 NSIL HPV+, recommen d retest in 1 year Sonya Rouse MD Attn: Ira huizar,[address] [facility], [place], [address] [facility] 4 19:23:52 Problem Notes None recorded. Procedures Surgical History Date Name Laterality Status Provider Name and Address Organization Details Recorded Time 4 Date of Last Pap Smear completed Ingrid GottliebDESTINY carrion [facility] 02/20/2024 09:55:10 3 Date of Last Mammogram completed Ingrid HawkDESTINY wheeler [facility] 02/19/2024 11:05:00 9 ovarian ablation completed Ingrid DESTINY Nascimento [facility] 02/20/2024 09:54:28 5 Most Recent Mammogram completed Ingrid HawkDESTINY wheeler [facility] 12/06/2014 10:29:05 3 Tubal Ligation completed Asiya Douglas MD Attn: Accounting,[address] [place], [address], [facility] 05/18/2014 14:52:22 0 open reduction of fracture of facial bone completed Ingrid Nascimento MA [facility] 02/20/2024 09:56:23 Other completed Asiya Douglas MD Attn: Accounting,[address] [place], [address], [facility] 05/18/2014 14:52:22 Imaging Results None recorded. Procedure Notes None [...] days. 09/15 completed Received refill request from [facility] for famotidi ne. Refill approved and erx'd to [facility]. Not Available Not Available Not Available meclizine [...] e 50 mcg/actua tion nasal spray,tammie pension Kosse 2 sprays every day by intranas al [...] (BMI) Body weight Body temperature Oxygen saturation Heart rate Systolic And Diastolic Provider Name and Address Organization Details Last Updated DateTime 3 167.64 cm 19.9 kg/m2 43491.8 6 g 98.1 [degF] 98 % 98 /min 126/78 mm[Hg] Christina Nicholson [place] [facility] 3 10:23:58 Date Recorded Body height Oxygen saturation Heart rate Body temperature Systolic And Diastolic Provider Name and Address Organization Details Last Updated DateTime 3 167.64 cm 98 % 98 /min 98.2 [degF] 122/78 mm[Hg] Mary Rosenberg [place] [facility] 3 15:36:31 Date Recorded Body height Body mass index (BMI) Body weight Oxygen saturation Heart rate Systolic And Diastolic Provider Name and Address Organization Details Last Updated DateTime 4 167.64 cm 24.6 kg/m2 63505.1 4 g 98 % 75 /min 124/88 mm[Hg] Ingrid Nascimento MA [facility] 4 09:59:40 Date Recorded Body height Body mass index (BMI) Body weight Heart rate Body temperature Oxygen saturation Systolic And Diastolic Provider Name and Address Organization Details Last Updated DateTime 3 167.64 cm 19 kg/m2 23793.9 g 82 /min 98.1 [degF] 98 % 126/82 mm[Hg] Christina Nicholson MA [place] - [facility] 3 11:54:55 Social History Question Answer Notes LastModified by Organizat ion Details LastModified Time Tobacco Smoking Status Former Smoker Ingrid Nascimento MA [facility], [facility] 02/20/2024 09:55:50 Do You Have An Advance Directive? No Information not available 12/06/2014 Is Blood Transfusion Acceptable In An Emergency? Yes Information not available 12/06/2014 What Is Your Level Of Caffeine Consumption? Moderate Information not available 11/11/2014 How Much Tobacco Do You Chew? None Information not available 12/06/2014 What Type Of Diet Are You Following? REGULAR Information not available 12/06/2014 Education 12 Information no t available 12/06/2014 Live Alone Or With Others? With Others Information not available 12/06/2014 What Was The Date Of Your Most Recent Tobacco Screening? 02/20/2024 Information not available 02/20/2024 How Many Children Do You Have? 3 Information not available 12/06/2014 Performs Monthly Self-breast Exam? No Information no t available 12/06/2014 Do You Use Protection During [...] You Passively Exposed To Smoke? Yes Information no t available 02/20/2024 How Much Tobacco Do You Smoke? 0.5 PPD Information not available 12/06/2014 General Stress Level High Information not available 12/06/2014 Do You Use Sunscreen Routinely? No Information not available 12/06/2014 Has Tobacco Cessation Counseling Been Provided? Yes [email or web address] Information not available 12/25/2022 On What Date Was Tobacco Cessation Counseling Provided? 02/20/2024 Information not available 02/20/2024 How Many Years Have You Smoked Tobacco? 31 [email or web address] Information not available 05/18/2014 How Many Years Have You Used E-cigarettes Or Vape? 1 Information not available 02/20/2024 Sex: Unknown Functional Status Question Answer Note LastModified by Organizat ion Details LastModified Time Do you use any illicit or recreational drugs? Yes marijuana Information not available 02/20/2024 Do you or have you ever used any other forms of tobacco or nicotine? Yes Information not available 02/20/2024 What is your level of alcohol consumption? None Information not available 11/11/2014 Do you or have you ever used smokeless tobacco? Never used smokeless tobacco Information not available 02/20/2024 Are you currently employed? No Information not available 12/06/2014 Do you or have you ever used e-cigarettes or vape? Current user of electronic cigarettes Information not available 02/20/2024 What is your exercise level? Moderate Information [...] History Condition Response Coronary Artery Disease N Kidney Cyst N Blood Diseases N Hyperthyroidism N Blood Transfusion N Blood disorders N MRSA N Emphysema N COPD N Blood Clots N Depression N Pneumonia N Peripheral Arterial [...] Sclerosis N Colon Polyps N Heart Attack ([place]) N Diabetes N Cardiomyopathy N Blood Transfusions [...] A, adult 10/17/2023 completed Christina Nicholson [place], [place] [facility] 10/17/2023 10:58:17 Past Encounters Encounter ID Performer Location Encounter Start Date Encounter Closed Date Diagnosis/Indication Diagnosis SNOMED-CT Code Diagnosis ICD10 Code Diagnosis IMO Codes Diagnosis Note [id number] Asiya Douglas MD [facility] (Adult Med) [address] [place] [id number] 05/18/2014 13:37:05 05/18/2014 15:37:09 Pain of wrist region 46146671 Cough 60810635 Tobacco user 696536115 Allergic rhinitis 55373210 Palpitations 59187040 Atypical chest pain 989531755 Fibrocysti c disease of breast 23081420 Pain in fe male genitalia on intercourse 43645296 [id number] Asiya Douglas MD [facility] (Adult Med) [address] [place] [phone] 11/11/2014 15:26:58 11/15/2014 09:00:41 Finger joint - synovial swelling 937699279 Tobacco user 677928511 [id number] [facility] [address] [place] [phone] 12/06/2014 09:53:22 12/06/2014 11:20:32 Gynecologic examination 44731259 Menopausal symptom 73970637 Furuncle of vulva 022248401 [id number] [facility] [address] [place] [id number] 12/28/2014 10:49:05 12/28/2014 12:57:21 Infection by Trichomonas 83202904 [id number] [facility] [address] [place] [id number] 05/20/2015 09:43:40 05/20/2015 15:36:31 Abnormal uterine bleeding 8136353473 9100 N93.9 [id number] Mukul Strange MD [facility] (OFFICE SERVICES ASSISTANT) [address] [place] [phone] 07/13/2015 13:55:58 07/13/2015 17:33:54 Abnormal uterine bleeding 8762469362 9100 N93.9 Proliferat robert endometriu m noted on D&C pathology report from 06/28/15. Informed patient of reassuring results. [id number] MD Maren Hearn (OFFICE SERVICES ASSISTANT) [address] [place] [id number] 10/26/2015 15:44:23 11/03/2015 15:10:38 Abscess of vulva 70996093 N76.4 [id number] MD Maren Emery (Adult Med) [address] [place] [id number] 03/27/2016 16:16:02 03/27/2016 17:25:39 Upper respiratory infection 77925174 J06.9 Gastroesop hageal reflux disease 667679039 K21.9 Pain in right arm 848801 004 M79.861 [id number] MD Maren Emery (Adult Med) [address] [place] [id number] 05/09/2016 15:42:23 05/09/2016 17:50:08 Dizziness 627100128 R42 Pt to contact ENT if sx persist Vertigo 832639979 R42 [id number] MD Maren Emery (Adult Med) [address] [place] [id number] 07/22/2017 11:46:42 07/22/2017 12:37:28 Elevated blood-pressure reading without diagnosis of hypertension 946593167 R03.0 Foot callus 179362113 L8 4 Temporoman dibular joint disorder 45443660 M26.609 Headache 80161206 R51 [id number] MD Maren Emery (Adult Med) [address] [place] [phone] 10/28/2017 11:45:39 10/28/2017 13:40:54 Essential hypertension 77197825 I10 [id number] MD Maren Emery (Adult Med) [address] [place] [id number] 11/25/2017 12:08:32 11/26/2017 10:21:57 Essential hypertension 46003865 I10 Well controlled . Continue current rx [id number] MD Maren Lopez (Adult Med) [address] [place] [id number] 03/17/2018 10:46:25 03/17/2018 11:25:59 Acute left otitis media 859379312 H66.92 Upper resp iratory infection 15768122 J06.9 Advised to drink plenty of waterAlter ashvin ibuprofen and tylenol for painRestOT C cough syrup PRN Gastroesop hageal reflux disease 973448240 K21.9 Advised to stay away from spicy and greasy foodsAdvis ed to stay away from fatty foodsDo not eat within 2 hours of going to bedStay sitting up after mealsNo smoking [id number] MD Maren Mark (Adult Med) [address] [place] [phone] 05/12/2018 10:44:17 05/13/2018 09:03:48 Upper respiratory infection 63399853 J06.9 Advised to drink plenty of waterAlter ashvin ibuprofen and tylenol for painRestOT C cough syrup PRN Persistent cough 2175904 02 R05 smoker advised to quit smoking Acute exac erbation of chronic obstructive pulmonary disease 307030441 J44.1 Essential hypertension 81827589 I10 [id number] [facility] [facility] ([facility] [address] [place] [address] [phone] 07/14/2018 10:00:39 07/14/2018 10:48:52 Essential hypertension 22415806 I10 REASSESS AT NEXT ov FOR MED CHANGE. Continue current rx Tobacco user [id number] Z 72.0 Gastroesop hageal reflux disease 336977312 K21.9 [id number] Asiya Douglas MD [facility] (Adult Med) [address] [place] [address] [phone] 09/15/2018 09:35:30 09/15/2018 10:57:59 Headache 88884478 R51 Gastroesop hageal reflux disease 814710548 K21.9 Fibrocysti c disease of breast 64156819 N60.19 Palpitations 52266821 R0 0.2 Essential hypertension 53851277 I10 Change to lisinopril /Hctz Tobacco user 794213902 Z 72.0 [id number] MD Maren Emery (Adult Med) [address] [place] [address] [phone] 11/17/2018 10:07:26 11/17/2018 10:57:16 Essential hypertension 81789897 I10 Discussed likelihood that dizziness not related to new BP med regimen. Pt will restart BID regimen and observe for recurrence of sx. [id number] MD Maren Emery (Adult Med) [address] [place] [address] [phone] 03/23/2019 09:42:49 03/23/2019 11:17:43 Callosity 639405199 L84 Temporoman dibular joint disorder 01495046 M26.481 [id number] MD Maren Emery (Adult Med) [address] [place] [address] [phone] 09/21/2019 09:41:20 09/22/2019 14:10:56 Paresthesia of hand 497248389 R20.2 Gastroesop hageal reflux disease 481939669 K21.9 Essential hypertension 09012351 I10 [id number] MD Maren Emery (Adult Med) [address] [place] [address] [phone] 0 05/30/2020 10:27:52 05/31/2020 10:13:27 Gastroesophageal reflux disease 683560109 K21.9 Mass of right breast [id number] [id number] 8282406 N63.10 Essential hypertension 09495345 I10 [id number] MD Maren Emery (Adult Med) [address] [place] [address] [phone] 12/21/2020 16:12:22 12/29/2020 08:10:28 Disorder of soft tissue 80110950 M79.9 Essential hypertension 72278063 I10 Gastroesop hageal reflux disease 242831314 K21.9 [id number] MD Maren Emery (Adult Med) [address] [place] [address] [phone] 12/25/2022 10:08:32 12/28/2022 12:02:54 Dyspnea 786680697 R06.00 Dizziness 075978351 R42 Carotid bruit 646756432 R09.89 Tobacco de pendence syndrome 61824683 F17.200 Abnormal weight loss 267 368787 R63.4 Family his tory of polyp of colon 876194562 Z83.71 Screening for malignant neoplasm of breast 932238701 Z12.39 [id number] MD Maren Starr (Adult Med) [address] [place] [address] [phone] 02/19/2023 15:31:12 02/27/2023 16:17:45 Paronychia of finger 204429222 L03.019 Will apply Mupirocin ointment BID starting [...] to get some wound drainage for culture. [id number] MD Maren Emery (Adult Med) [address] [place] [address] [phone] 04/01/2023 11:32:13 04/02/2023 11:30:40 Serum thyroid stimulating hormone level outside reference range 067176130 R89.1 Continued weight loss. Scheduled to see endocrine in three weeks Palpitations 77108836 R0 0.2 Menopausal symptom 21926 002 N95.1 Refer to COMMUNITY SERVICES MANAGER Tobacco de pendence syndrome 87445600 F17.200 Abnormal weight loss 267 124292 R63.4 Scheduled to see endocrine in three weeks [id number] MD Maren Emery (Adult Med) [address] [place] [address] [phone] 10/17/2023 10:28:52 10/18/2023 10:32:22 Requires a hepatitis A vaccination 736253941 Z28.39 [id number] MD Maren Jay (OFFICE SERVICES ASSISTANT) [address] [place] [address] [phone] 02/20/2024 09:10:25 03/06/2024 10:36:47 Insomnia 773276697 G47.00 Attributed to night sweats and shift work. Management of menopausal symptoms as above. Counselled on improved sleep hygeine and having routine when returning home from work. Vaginal dryness 19493487 N89.8 Symptoms with intercours e, otherwise not causing distress. Will pursue trial of conservati ve management . - Nuswab and urine dipstick as below to rule out infectious cause- vaginal moisturize r, patient advised to use daily regardless of sexual activity- additional lubricatio n with intercours e- consider estrogen cream for refractory symptoms Gynecologi c examination 49559498 Z01.419 Encounter for routine gynecologi c exam with abnormal findings as below. Screening for malignant neoplasm of cervix 390759947 Z12.4 Patient is due for pap smear with HPV testing as per USPFTF guidelines . Female uri nary stress incontinence 99852843 N39.3 DDX UTI, pelvic floor dysfunctio n, vaginitis. vulvar atrophy, diabetes. Urine dipstick not suggestive of infection. Nuswab as below. Test A1c. Serum thyr oid stimulating hormone level outside reference range 740741012 R89.1 TSH 0.297 on 12/25/22. Not currently on any thyroid medication . No current symptoms. Will recheck. Menopausal flushing 1983 71852 N95.1 Severe night sweats and hot flashes attributed to menopause. Other differenti als include thyroid dysfunctio n, electrolyt e imbalance, diabetes, anemia. Patient also with vaping as below. - CBC, CMP, TSH, A1c- trial of bupropion, start with lowest dose and titrate up as needed- follow-up in 1-2 months Venereal d isease screening 057260059 Z11.3 Complete STI screening. No known exposures or symptoms. Screening mammography 24 591332 Z12.31 Patient is due for bilateral screening mammogram as per USPSTF guidelines . Mass of right breast 977 5057401 6226260 N63.10 DDX fibrocysti c change, past marker from biopsy, neoplastic mass. Plan on diagnostic mammogram and US. Overdue for screening mammogram as above. Marijuana user 328871607 F12.90 Counselled on marijuana cessation. Has already cut back, and encouraged to continue progress. Vaping 568938408 Z77.29 Counselled on vaping cessation. Has already [...] None Recorded Advance Directives Directive N: Payers Insurance Date Sequence Insurance Name Policy Number Policy Mock Covered Member ID Mock Member ID Guarantor Name 01/30/2021 SLIDING FEE SCHEDULE - DISCOUNT Magda Quiles 12/11/2022 1 *SELF PAY* Zhou Quiles 02/20/2024 2 [facility] - DOS PRIOR TO 2020 (MEDICAID REPLACEMENT - HMO) Magda Kb [id number] Magda Kb 02/20/2024 1 [facility] (HMO) [id number] Magda Quiles [id number] Magda Kb 02/20/2024 1 [employer] [place] - DOS ON OR AFTER 2020 (MEDICAID REPLACEMENT - HMO) Magda Quiles [id number] Magda Quiles 08/24/2024 1 [place] Magda Kb [id number] Magda Kb 02/20/[address] [facility] (MEDICAID HMO) [id number] Magda Quiles [id number] Magda Quiles 03/06/2024 1 [employer] [id number] Magdabaldomero Quiles [id number] Magda Kb 02/20/2024 1 [employer] [id number] Magda Quiles [id number] Magda Kb Notes Date Note Type Note Provider Name and Address Organization Details Recorded Time 3 text/html Stopped smoking three years ago. She now vapes. She has been experiencing exertional dyspnea in the past three months. She has lost a significant amount of weight in the past year. Had biopsy of right breast in 2020. Reportedly benign.. Off all meds Asiya Douglas MD Attn: Accounting[address] [place], [address], [facility] 12/25/2022 11:17:59 3 text/html ROS as noted in the HPI has colonoscopy tomorrow, four or five days [...] medication for colonoscopy, Nikki Padron MD Attn: Accounting,[address], [place], [address], [place] [facility] 02/19/2023 17:21:40 3 text/html Here for routine f/u. No new complaints but continues to lose weight. Her appetite is good Has hot flashes x3 yrs. Asiya Douglas MD Attn: Accounting,[address], [place], [address], [place] [facility] 04/01/2023 12:29:33 4 text/html Annual GYNReported by PatientHistoryFor history, (vaginal dryness).Genitourinary symptomsFor urinary symptoms, patient reportsincontinence,stress incontinence, andurge incontinencebut reportsno hematuria. For vulva, patient reportsno genital lesion. For vagina, patient reportsnormal vaginal discharge. For menstrual cycle, (menopausal).Breast symptomsFor breast, patient reportsbreast lumpbut reportsno breast painandno nipple discharge(history of breast cysts and biopsy, has markers in place, no pain, skin changes, or nipple drainage).ContraceptionFor current contraception, patient reportsmonogamous relationshipandnew sexual partner.Endocrine symptomsFor sexual complaints, patient reportssexual complaintsandexcessive facial or body hair (hirsutism). For menopausal symptoms, patient reportshot flashes,inadequacy of lubrication of vaginal mucosa, andinsomnia due to night sweats.Psychological symptomsFor psychological symptoms, patient reportsdepression (mild, no si or hi)but reportsno anxietyandno pmdd.Preventative measuresFor preventive measures, patient reportsencourage regular exercise,encourage no tobacco use, andencourage regular mammograms starting age 40.ROS as noted in the HPI Tabby is a 58 y/o with a [...] since recoveringNo drinking Nicol Salcedo MD Attn: Accounting[address] [facility], [place], [address], [facility] 03/06/2024 08:08:37 OBGyn Episode Ob Episode Information Episode Created Date Number of Fetuses Patient Bloodtype Patient rh Status Prepregnancy Weight lbs Domestic Partner Domestic Partner Phone Father Name 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 Status 10/26/19 16 1 CLOSED Fetus Data First Name Last Name Admitted to NICU Weight (g) Sex Living Outcome Pediatric Complications Fetus ID Race Codes Race Delivery Type 3345.24 1 F Full Term [address] Initial [address] Date Initial [...] Domestic Partner Domestic Partner Phone Father Name 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 Status 10/26/19 16 1 CLOSED Fetus Data First Name Last Name Admitted to NICU Weight (g) Sex Living Outcome Pediatric Complications Fetus ID Race Codes Race Delivery Type 3515.33 8 F Full Term [address] Initial Rd Date Initial [...] Domestic Partner Domestic Partner Phone Father Name 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 Status 10/26/19 16 1 CLOSED Fetus Data First Name Last Name Admitted to NICU Weight (g) Sex Living Outcome Pediatric Complications Fetus ID Race Codes Race Delivery Type 3061.74 6 F Full Term [address] Initial [address] Date Initial [...]
[2025-05-03 20:00] VITALS: BP 142/72; PULSE 85; RESP 16; TEMP 36.6; O2SAT 100
--- NOTE | 2025-05-03 22:27 | PC.NURSE ---
Patient told security that she was leaving
--- OUTSIDE RECORDS SUMMARY | 2025-05-03 22:30 | XMS_ITS | Clinical Summary ---
Author Organization [facility] Address [address] [place], [place] [address] Care Team Providers Care Signaling Design Engineer Name Role Phone Unavailable Primary Care Provider Unavailabl e Social History Tobacco Use Types Packs/Day Years Used Date Smoking Tobacco: Never Assessed Comments Unknown Sex and Gender Information Value Date Recorded Sex Assigned at Not on file Legal Sex Female 5:48 PM SALES REPRESENTATIVES Gender Identity Not on file Sexual Orientation [...] patient's age to complete this topic Insurance [facility]
--- OUTSIDE RECORDS SUMMARY | 2025-05-03 22:30 | XMS_ITS | Encounter Summary ---
Author Organization [facility] Address [address] [place] [address] Care Team Providers Care Clinical Outcomes Manager Name Role Phone Unavailable Primary Care Provider Unavailabl e Encounter Details Date Type Department Care Team (Late st Contact Info) Description 10/11/2018 Abstract SFL CONVERSION [address] [place] [address] , Generic Conversion, Social History Tobacco Use Types Packs/Day Years Used Date Smoking Tobacco: Never Assessed Comments Unknown Sex and Gender Information Value Date Recorded Sex Assigned at Not on file Legal Sex Female 5:48 PM OPERATIONS GENERAL AGENT Gender Identity Not on file Sexual Orientation Not on file documented as of this encounter Plan of Treatment Not on file documented as of this encounter Visit Diagnoses Not on filedocumented in this encounter
== END 2025-05-03 23:55 | disposition left against medical advice (07) ==
PROVIDERS: PCP Internal Medicine Gastroenterology
DX: K12.2 Cellulitis and abscess of mouth (principal)
CPT/HCPCS: 99199